=== PATIENT | female | born 1960 | race Caucasian/White ===

== ENCOUNTER → 2016-08-22 | Outpatient (REF) | payer OTHER, MEDICAID ==
[~2016-08-22] MED LIST: ATOR40TA PO; FISH100049 PO; FURO20TA2 PO; MULT1TAB15 PO; NATU400T PO
[2016-08-22 12:50] LABS: BASO % 0.8 % (0.0-1.0); EOS # 0.1 K/mm3 (0.0-0.50); EOS % 1.8 % (0.0-3.0); LARGE UNSTAINED CELL # 0.2 K/mm3 (0.0-0.4); LARGE UNSTAINED CELL % 2.5 % (0.0-4.0); LYMPH # 2.5 K/mm3 (1.5-4.5); MEAN CORPUSCULAR HEMOGLOBIN 30.7 pg (27.0-33.0); MEAN CORPUSCULAR HGB CONC 32.8 g/dl (32.0-36.5); MEAN CORPUSCULAR VOLUME 93.6 fl (80.0-96.0); MONO # 0.3 K/mm3 (0.0-0.8); MONO % 4.9 % (0.0-5.0); NEUTROPHILS # 3.5 K/mm3 (1.8-7.7); PLATELET COUNT, AUTOMATED 232 k/mm3 (150-450); RED CELL DISTRIBUTION WIDTH 12.1 % (11.5-14.5); WHITE BLOOD COUNT 6.7 K/mm3 (4.0-10.0)
[2016-08-22 13:01] LABS: INR 0.91
[2016-08-22 13:09] LABS: ALBUMIN 3.8 GM/DL (3.2-5.2); ALBUMIN/GLOBULIN RATIO 1.09 (1.00-1.93); BILIRUBIN,DIRECT 0.1 MG/DL (0.0-0.2); BILIRUBIN,TOTAL 0.7 MG/DL (0.2-1.0); TOTAL PROTEIN 7.3 GM/DL (6.4-8.2)
== END ==
LOC: M SFHCPLAZ 12:07
PROVIDERS: ATTEND Hospitalist
DX: R74.8 Abnormal levels of other serum enzymes (principal)

== ENCOUNTER → 2016-10-24 | Outpatient (REF) | payer OTHER | LOC: M SFHCPLAZ 14:33 | DX: R00.2 Palpitations (principal); Z53.9 Procedure and treatment not carried out, unspecified reason ==

== ENCOUNTER → 2016-11-12 | Outpatient (CLI) | payer OTHER, MEDICAID ==
[2016-11-12 14:48] LABS: MEAN CORPUSCULAR HEMOGLOBIN 31.9 pg (27.0-33.0); MEAN CORPUSCULAR HGB CONC 33.5 g/dl (32.0-36.5); MEAN CORPUSCULAR VOLUME 95.2 fl (80.0-96.0); RED CELL DISTRIBUTION WIDTH 12.7 % (11.5-14.5)
[2016-11-12 14:58] LABS: ANION GAP 9 MEQ/L (8-16); BLOOD UREA NITROGEN 19 MG/DL (7-18); CALCIUM LEVEL 9.2 MG/DL (8.5-10.1); CARBON DIOXIDE LEVEL 28 MEQ/L (21-32); CHLORIDE LEVEL 105 MEQ/L (98-107); CREATININE FOR GFR 0.95 MG/DL (0.55-1.02); GLOMERULAR FILTRATION RATE > 60.0 (>51); GLUCOSE, FASTING 94 MG/DL (70-105); SODIUM LEVEL 142 MEQ/L (136-145)
== END ==
LOC: M WUC 11:30
PROVIDERS: ATTEND Internal Medicine
DX: R00.2 Palpitations (principal)

== ENCOUNTER → 2016-11-12 | Outpatient (CLI) | payer OTHER, MEDICAID ==
--- NOTE | 2016-11-13 02:24 | REP ---
Clinical: Contusion. Technique: AP, lateral, bilateral oblique and sunrise views of the right knee. Findings: Lateral view demonstrates small to moderate suprapatellar effusion. No acute fracture or dislocation is appreciated. Underlying degenerative changes include increased sclerosis to the tibial plateau with subtle medial joint space narrowing as well as mild patellofemoral joint space narrowing best noted on sunrise view. Impression: Small to moderate suprapatellar effusion. No acute fracture dislocation. Mild age-related degenerative changes. Signed by Dante Song MD 11/13/2016 02:15 A
== END ==
LOC: M WUC 11:25
PROVIDERS: ATTEND Physician Assistant
DX: S80.01XA Contusion of right knee, initial encounter (principal); X58.XXXA Exposure to other specified factors, initial encounter; Y92.9 Unspecified place or not applicable; Y93.9 Activity, unspecified; Y99.9 Unspecified external cause status

== ENCOUNTER → 2017-02-06 | Outpatient (REF) | payer OTHER, MEDICAID ==
[~2017-02-06] MED LIST changes: -ATOR40TA PO; +ATOR40TA75 PO
== END ==
LOC: M LAB REF 10:49
PROVIDERS: ATTEND Physician Assistant
DX: N89.8 Other specified noninflammatory disorders of vagina (principal)

== ENCOUNTER → 2017-04-07 | Outpatient (REF) | payer OTHER ==
[2017-04-07 13:52] LABS: ALBUMIN 4.1 GM/DL (3.2-5.2); ALBUMIN/GLOBULIN RATIO 1.14 (1.00-1.93); BILIRUBIN,DIRECT 0.2 MG/DL (0.0-0.2); BILIRUBIN,TOTAL 0.6 MG/DL (0.2-1.0); MAGNESIUM LEVEL 2.4 MG/DL (1.8-2.4); TOTAL PROTEIN 7.7 GM/DL (6.4-8.2)
[2017-04-09 00:06] LABS: ANTI SCLERODERMA ANTIBODIES <0.2 AI (0.0-0.9)
== END ==
LOC: M SFHCPLAZ 11:23
PROVIDERS: ATTEND Family Medicine
DX: F32.9 Major depressive disorder, single episode, unspecified (principal); L40.9 Psoriasis, unspecified; K76.0 Fatty (change of) liver, not elsewhere classified; Z01.89 Encounter for other specified special examinations; R25.2 Cramp and spasm

== ENCOUNTER → 2017-07-14 | Outpatient (CLI) | payer OTHER ==
[2017-07-14 11:28] LABS: INR 0.92; PARTIAL THROMBOPLASTIN TIME 28.1 SECONDS (26.8-37.9); PROTHROMBIN TIME 12.4 SECONDS (12.4-14.5)
[2017-07-14 11:56] LABS: HEPATITIS B SURFACE ANTIBODY NEGATIVE (POSITIVE)
[2017-07-14 12:06] LABS: ALBUMIN 3.9 GM/DL (3.2-5.2); ALBUMIN/GLOBULIN RATIO 1.11 (1.00-1.93); ALKALINE PHOSPHATASE 63 U/L (45-117); ALT/SGPT 105 U/L (12-78); AST/SGOT 57 U/L (7-37); BILIRUBIN,DIRECT 0.1 MG/DL (0.0-0.2); BILIRUBIN,TOTAL 0.5 MG/DL (0.2-1.0); FERRITIN 383 NG/ML (8-252); IRON (FE) 79 UG/DL (50-170); PERCENT SATURATION 21.8 % (13.2-45.0); TOTAL IRON BINDING CAPACITY 363 UG/DL (250-450); TOTAL PROTEIN 7.4 GM/DL (6.4-8.2)
[2017-07-17 08:07] LABS: ALPHA 2-MACROGLOBULINS,QN 174 mg/dL (110-276); ALT (SGPT) P5P 102 IU/L (0-40); ANTI-MITOCHONDRIAL ANTIBODY 17.8 Units (0.0-20.0); APOLIPOPROTEIN A-1 159 mg/dL (116-209); AST (SGOT) P5P 62 IU/L (0-40); BILIRUBIN, TOTAL 0.2 mg/dL (0.0-1.2); CERULOPLASMIN 28.6 mg/dL (19.0-39.0); CHOLESTEROL TOTAL 190 mg/dL (100-199); GGT 80 IU/L (0-60); GLUCOSE, SERUM 114 mg/dL (65-99); HAPTOGLOBIN 159 mg/dL (34-200); HEIGHT 64 Inches (.); STEATOSIS SCORE 0.81 (0.00-0.30); TRIGLYCERIDES 116 mg/dL (0-149); WEIGHT 180 LBS (.)
[2017-07-17 08:07] LABS: HEPATITIS A IgG TOTAL Negative (Negative)
== END ==
LOC: M RAD 08:55
DX: R13.10 Dysphagia, unspecified (principal); K76.0 Fatty (change of) liver, not elsewhere classified; R16.2 Hepatomegaly with splenomegaly, not elsewhere classified
CPT/HCPCS: 76700

== ENCOUNTER → 2017-07-14 | Outpatient (CLI) | payer OTHER ==
[2017-07-14 11:13] LABS: BASO % 0.5 % (0.0-1.0); EOS # 0.1 10^3/uL (0.0-0.50); EOS % 1.2 % (0.0-3.0); HEMATOCRIT 38.5 % (36.0-47.0); HEMOGLOBIN 12.8 g/dl (12.0-16.0); IMMATURE GRANULOCYTE % 0.3 % (0-0); LYMPH % 30.9 % (24.0-44.0); MEAN CORPUSCULAR HEMOGLOBIN 31.1 pg (27.0-33.0); MEAN CORPUSCULAR HGB CONC 33.2 g/dl (32.0-36.5); MEAN CORPUSCULAR VOLUME 93.7 fl (80.0-96.0); MONO # 0.4 10^3/uL (0.0-0.8); NEUTROPHILS % 61.1 % (36.0-66.0); PLATELET COUNT, AUTOMATED 225 10^3/uL (150-450); RED BLOOD COUNT 4.11 10^6/uL (4.00-5.40); RED CELL DISTRIBUTION WIDTH 12.8 % (11.5-14.5); WHITE BLOOD COUNT 6.5 10^3/uL (4.0-10.0)
[2017-07-14 11:42] LABS: ALBUMIN 3.8 GM/DL (3.2-5.2); ALBUMIN/GLOBULIN RATIO 1.09 (1.00-1.93); ALKALINE PHOSPHATASE 63 U/L (45-117); ALT/SGPT 102 U/L (12-78); ANION GAP 7 MEQ/L (8-16); AST/SGOT 57 U/L (7-37); BILIRUBIN,TOTAL 0.5 MG/DL (0.2-1.0); BLOOD UREA NITROGEN 18 MG/DL (7-18); C REACTIVE PROTEIN QUANTITATIV 0.48 MG/DL (0.00-0.30); CARBON DIOXIDE LEVEL 29 MEQ/L (21-32); CHLORIDE LEVEL 107 MEQ/L (98-107); GLOMERULAR FILTRATION RATE > 60.0 (>51); GLUCOSE, FASTING 112 MG/DL (70-105); POTASSIUM SERUM 4.2 MEQ/L (3.5-5.1); RHEUMATOID FACTOR QUANT < 10.0 IU/ML (0-15.0); SODIUM LEVEL 143 MEQ/L (136-145); TOTAL PROTEIN 7.3 GM/DL (6.4-8.2)
[2017-07-14 11:56] LABS: ERYTHROCYTE SEDIMENTATION RATE 25 mm/hr (0-30); HEPATITIS B SURFACE ANTIGEN NEGATIVE (NEGATIVE)
[2017-07-14 12:24] LABS: HEPATITIS C VIRUS ABY INDEX 0.1 INDEX (<0.8)
[2017-07-16 00:07] LABS: ANA (HEP2) Negative (.); Lyme Disease IgG/IgM Antibodie <0.91 ISR (0.00-0.90); Lyme Disease IgM Ab Quantitati <0.80 index (0.00-0.79); SSA SJOGRENS A <0.2 AI (0.0-0.9); SSB SJOGRENS B <0.2 AI (0.0-0.9)
[2017-07-16 00:07] LABS: CYCLIC CITRULLINATED PEPTIDE 9 units (0-19)
== END ==
LOC: M RAD 09:07
DX: L40.59 Other psoriatic arthropathy (principal); Z79.899 Other long term (current) drug therapy; R53.83 Other fatigue; K76.0 Fatty (change of) liver, not elsewhere classified; M54.5 Low back pain; M25.559 Pain in unspecified hip; M25.569 Pain in unspecified knee; M51.36 Other intervertebral disc degeneration, lumbar region; M51.37 Other intervertebral disc degeneration, lumbosacral region; M25.78 Osteophyte, vertebrae
CPT/HCPCS: 72110

== ENCOUNTER 2017-10-02 08:08 | Day surgery (SDC) | payer OTHER, MEDICAID ==
[2017-10-02] MEDS: NS 1,000 ML IV (08:00)
[~2017-10-02 08:08] MED LIST changes: -ATOR40TA75 PO; -FISH100049 PO; -FURO20TA2 PO; +LIDOCAINE 2% INJ 100 MG/5 ML SDV (FOR ANES.) As Ordered; -MULT1TAB15 PO; -NATU400T PO; +PROPOFOL 200 MG/20 ML VIAL As Ordered
[2017-10-02] MEDS ORDERED: PROPOFOL 200 MG/20 ML VIAL As Ordered ×2 (10:54)
== END 2017-10-02 11:25 | disposition home or self-care (01) ==
LOC: M OPP 08:08
DX: Z12.11 Encounter for screening for malignant neoplasm of colon (principal); D12.3 Benign neoplasm of transverse colon; K62.1 Rectal polyp; K64.8 Other hemorrhoids; K57.30 Diverticulosis of large intestine without perforation or abscess without bleeding; K22.8 Other specified diseases of esophagus; K29.70 Gastritis, unspecified, without bleeding; R13.10 Dysphagia, unspecified; I10 Essential (primary) hypertension; E78.5 Hyperlipidemia, unspecified; K76.0 Fatty (change of) liver, not elsewhere classified; R00.2 Palpitations; F41.9 Anxiety disorder, unspecified; F32.9 Major depressive disorder, single episode, unspecified; L40.50 Arthropathic psoriasis, unspecified; D68.51 Activated protein C resistance; Z79.899 Other long term (current) drug therapy; Z88.8 Allergy status to other drugs, medicaments and biological substances; Z87.891 Personal history of nicotine dependence
CPT/HCPCS: 45385

== ENCOUNTER → 2017-10-03 | Outpatient (CLI) | payer OTHER | LOC: M RAD 11:16 | DX: R10.13 Epigastric pain (principal); R10.30 Lower abdominal pain, unspecified; J98.11 Atelectasis | CPT/HCPCS: 71046 ==

== ENCOUNTER → 2017-11-20 | Outpatient (REF) | payer OTHER ==
[2017-11-20 18:22] LABS: ALBUMIN 3.9 GM/DL (3.2-5.2); ALBUMIN/GLOBULIN RATIO 1.11 (1.00-1.93); ALKALINE PHOSPHATASE 71 U/L (45-117); ALT/SGPT 140 U/L (12-78); AST/SGOT 67 U/L (7-37); BILIRUBIN,DIRECT 0.1 MG/DL (0.0-0.2); BILIRUBIN,TOTAL 0.6 MG/DL (0.2-1.0); TOTAL PROTEIN 7.4 GM/DL (6.4-8.2)
[2017-11-20 18:27] LABS: TOTAL 25(OH) VITAMIN D 29.6 NG/ML (30.0-100.0)
[2017-11-20 18:34] LABS: ESTIMATED AVERAGE GLUCOSE 146 MG/DL (60-110); HEMOGLOBIN A1c 6.7 %
== END ==
LOC: M SFHCPLAZ 15:15
DX: R74.0 Nonspecific elevation of levels of transaminase and lactic acid dehydrogenase [LDH] (principal)

== ENCOUNTER 2017-12-28 11:39 | Emergency (ER) | payer OTHER, MEDICAID ==
[2017-12-28] MEDS: ALBUTEROL SULFATE 2.5 MG/0.5 ML INH NEB SOLN NEB ×2 (12:21→12:29)
== END 2017-12-28 12:59 | disposition home or self-care (01) ==
LOC: M ED 11:39
DX: J20.9 Acute bronchitis, unspecified (principal); J45.909 Unspecified asthma, uncomplicated; Z91.048 Other nonmedicinal substance allergy status; Z98.890 Other specified postprocedural states; Z87.891 Personal history of nicotine dependence; Z88.8 Allergy status to other drugs, medicaments and biological substances; Z88.1 Allergy status to other antibiotic agents; Z88.2 Allergy status to sulfonamides; Z88.5 Allergy status to narcotic agent
CPT/HCPCS: 94640

== ENCOUNTER 2018-03-22 11:47 | Emergency (ER) | payer OTHER, MEDICAID | END 2018-03-22 14:01 | disposition home or self-care (01) | LOC: M ED 11:47 | DX: S06.0X1A Concussion with loss of consciousness of 30 minutes or less, initial encounter (principal); W19.XXXA Unspecified fall, initial encounter; Y92.099 Unspecified place in other non-institutional residence as the place of occurrence of the external cause; Y93.89 Activity, other specified; Y99.9 Unspecified external cause status; I10 Essential (primary) hypertension; Z87.891 Personal history of nicotine dependence; Z79.899 Other long term (current) drug therapy; Z88.5 Allergy status to narcotic agent; Z88.8 Allergy status to other drugs, medicaments and biological substances | CPT/HCPCS: 73080 ==

== ENCOUNTER → 2018-05-15 | Outpatient (REF) | payer OTHER, MEDICAID ==
[2018-05-15 13:32] LABS: ALBUMIN 4.1 GM/DL (3.2-5.2); ALBUMIN/GLOBULIN RATIO 1.32 (1.00-1.93); ALKALINE PHOSPHATASE 69 U/L (45-117); ALT/SGPT 88 U/L (12-78); AST/SGOT 64 U/L (7-37); BILIRUBIN,DIRECT 0.2 MG/DL (0.0-0.2); BILIRUBIN,TOTAL 0.7 MG/DL (0.2-1.0); CHOLESTEROL LEVEL 194 MG/DL (<200); GAMMA GLUTAMYLTRANSPEPTIDASE 121 U/L (5-55); HDL CHOLESTEROL 52 MG/DL (>40); LDL CHOLESTEROL 116 MG/DL (<100); NON-HDL-C 142 MG/DL; TOTAL PROTEIN 7.2 GM/DL (6.4-8.2); TRIGLYCERIDES LEVEL 129 MG/DL (<150)
== END ==
LOC: M LABDRAWP 10:43
DX: R94.5 Abnormal results of liver function studies (principal); K75.81 Nonalcoholic steatohepatitis (NASH)
CPT/HCPCS: 82977

== ENCOUNTER 2018-09-25 11:30 | Outpatient (RCR) | payer OTHER ==
[~2018-09-25 11:30] MED LIST changes: +ALBU83IN INH; +ATOR40TA75 PO; +BREAMIS6 XX; +CENT1CHW5 PO; +FISH100049 PO; +FURO20TA2 PO; -LIDOCAINE 2% INJ 100 MG/5 ML SDV (FOR ANES.) As Ordered; +MUCI600T37 PO; +MULT1TAB15 PO; +NAPR-885 PO; +NATU400T PO; +OTEZ1TAB3 PO; +PANT40TA3 PO; +PRED20TA PO; -PROPOFOL 200 MG/20 ML VIAL As Ordered; +PROZ20CA11 PO; +VITA100066 PO
== END 2018-10-04 ==
LOC: M PT 11:30
PROVIDERS: ATTEND Dermatology
DX: L40.9 Psoriasis, unspecified (principal)

== ENCOUNTER → 2018-12-17 | Outpatient (CLI) | payer OTHER ==
--- NOTE | 2018-12-17 12:43 | REPMRS ---
Patient History The patient states she has not had a clinical breast exam in over a year. Patient is postmenopausal. No known family history of cancer. No Hormone Replacement Therapy Digital Woman Screen Mammo: December 17, 2018 - Exam #: [id number] Bilateral CC and MLO view(s) were taken. Technologist: Mary Jin, Technologist Prior study comparison: January 17, 2015, bilateral digital mammo screening bilat, performed at [facility]. FINDINGS: There are scattered fibroglandular densities. There is a moderate amount of residual fibroglandular tissue which is fairly symmetric. There is no interval development of dominant mass, architectural distortion, or clustered microcalcification typical of malignancy. There has been no change in the appearance of the mammogram from the prior studies. 3-D tomosynthesis shows no additional findings. Assessment: BI-RADS/ACR category 1 mammogram. Negative Mammogram. Recommendation Routine screening mammogram of both breasts in 1 year (for women over age 40). This patient's Lifetime Breast Cancer RIsk is estimated at 5.6 %. This mammogram was interpreted with the aid of an FDA-approved computer-aided dectection system. Electronically Signed By: Wu Garcia MD 12/17/18 [id number]
== END ==
LOC: M WHC 10:29
PROVIDERS: ATTEND Student in an Organized Health Care Education/Training Program
DX: Z12.31 Encounter for screening mammogram for malignant neoplasm of breast (principal)

== ENCOUNTER 2019-02-27 09:08 | Emergency (ER) | payer MEDICAID, OTHER ==
[2019-02-27] MEDS ORDERED: KETOROLAC 60 MG/2 ML VIAL (J1885) IM ONE (09:45)
--- NOTE | 2019-02-27 10:12 | REP ---
Left shoulder three view : There is no fracture or dislocation. Mineralization and joint spaces are normal. There are no calcifications or foreign bodies. Impression: Negative left shoulder . Electronically Signed by Anthony Gimenez MD 02/27/2019 10:04 A
--- NOTE | 2019-02-27 10:18 | REP ---
Maxillofacial CT: Axial images are acquired helical scanning and a reformatted sagittal and coronal projections: There is no nasal bone fracture. There is no orbit fracture. The ocular lenses and globes are unremarkable. There is no zygoma fracture. The paranasal sinuses are unremarkable. The mastoid air cells are unremarkable. There is no maxilla fracture. There is no mandible fracture. Impression: No facial bone fracture is identified. Electronically Signed by Anthony Gimenez MD 02/27/2019 10:09 A
--- NOTE | 2019-02-27 10:19 | REP ---
AP pelvis: There is no pelvic fracture. The right and left hip articulations are unremarkable. The right left sacroiliac articulations are unremarkable. Mineralization is normal. There are two small calcifications inferiorly on the right, nonspecific, ureteral versus phleboliths. Impression: No pelvic fracture. Nonspecific pelvic calcifications. Right hip two views : There is no fracture or dislocation. Mineralization and joint spaces are normal. There are no calcifications or foreign bodies. Impression: Negative right hip Left hip two views : There is no fracture or dislocation. Mineralization and joint spaces are normal. There are no calcifications or foreign bodies. Impression: Negative left hip . Electronically Signed by Anthony Gimenez MD 02/27/2019 10:11 A
[2019-02-27] MEDS ORDERED: KETO10TAB PO (10:48)
[2019-02-27 10:54] VITALS: BP 125/69
== END 2019-02-27 10:55 | disposition home or self-care (01) ==
LOC: M ED 09:08
DX: S00.83XA Contusion of other part of head, initial encounter (principal); S40.012A Contusion of left shoulder, initial encounter; S70.01XA Contusion of right hip, initial encounter; S70.02XA Contusion of left hip, initial encounter; W10.8XXA Fall (on) (from) other stairs and steps, initial encounter; Y92.098 Other place in other non-institutional residence as the place of occurrence of the external cause; I10 Essential (primary) hypertension; E78.00 Pure hypercholesterolemia, unspecified; K21.9 Gastro-esophageal reflux disease without esophagitis; K57.90 Diverticulosis of intestine, part unspecified, without perforation or abscess without bleeding; D68.51 Activated protein C resistance; Z87.828 Personal history of other (healed) physical injury and trauma; Z88.2 Allergy status to sulfonamides; Z88.8 Allergy status to other drugs, medicaments and biological substances; Z88.5 Allergy status to narcotic agent; Z88.1 Allergy status to other antibiotic agents; Z79.1 Long term (current) use of non-steroidal anti-inflammatories (NSAID)
CPT/HCPCS: 70486; 73030; 73521; 96372; 99283; J1885

== ENCOUNTER → 2019-05-17 | Outpatient (CLI) | payer OTHER, MEDICAID ==
[~2019-05-17] MED LIST changes: +KETO10TAB PO
[2019-05-17 17:32] LABS: BILIRUBIN,TOTAL 0.7 MG/DL (0.2-1.0); CALCIUM LEVEL 9.4 MG/DL (8.5-10.1); CHOLESTEROL RISK RATIO 3.473 (<5); CREATININE FOR GFR 1.12 MG/DL (0.55-1.30); POTASSIUM SERUM 3.8 MEQ/L (3.5-5.1); TOTAL PROTEIN 7.8 GM/DL (6.4-8.2)
[2019-05-17 18:00] LABS: HEMOGLOBIN A1c 6.6 %
== END ==
LOC: M WUC 14:02
DX: Z00.00 Encounter for general adult medical examination without abnormal findings (principal); K76.0 Fatty (change of) liver, not elsewhere classified; I10 Essential (primary) hypertension

== ENCOUNTER → 2019-05-19 | Outpatient (REF) | payer OTHER, MEDICAID ==
[2019-05-25 08:26] LABS: DOPAMINE 150 ug/24 hr (0-510); DOPAMINE TOTAL URINE 150 ug/L (Undefined); EPINEPHRINE 1 ug/24 hr (0-20); EPINEPHRINE TOTAL URINE 1 ug/L (Undefined); NOREPINEPHRINE 30 ug/24 hr (0-135); NOREPINEPHRINE TOTAL URINE 30 ug/L (Undefined)
== END ==
LOC: M SFHCPLAZ 16:50
PROVIDERS: ATTEND Family Medicine
DX: R00.2 Palpitations (principal)

== ENCOUNTER → 2019-05-21 | Outpatient (REF) | payer OTHER, MEDICAID ==
[2019-05-26 14:07] LABS: CREATININE,RANDOM URINE 290.8 mg/dL (Not Estab.); URINE METANEPHR/CREAT RATIO 0.3 (0.0-1.0)
== END ==
LOC: M SFHCPLAZ 15:43
PROVIDERS: ATTEND Family Medicine
DX: R00.2 Palpitations (principal)

== ENCOUNTER → 2019-08-20 | Outpatient (CLI) | payer OTHER ==
[~2019-08-20] MED LIST changes: +MUCI600T31 PO; +VENTAER INH
--- NOTE | 2019-08-20 08:24 | REP ---
Clinical: Fatty liver. Technique: Real time motnoya scale ultrasound examination using curved array transducer. Findings: Liver is increased echogenicity without focal hepatic lesion identified. Focal fatty sparing adjacent to the gallbladder fossa noted. The pancreas is incompletely evaluated due to interposed bowel gas but visualized portions appear normal. The gallbladder is normal and without gallstones, wall thickening, or pericholecystic fluid. No biliary ductal dilatation is appreciated and the common bile duct measures 5 mm diameter. The right kidney is normal in reniform shape without hydronephrosis and measures 11.1 x 4.7 x 4.3 cm. No ascites in the visualized right upper quadrant. Impression: Hepatic steatosis. Electronically Signed by Dante Song MD 08/20/2019 08:15 A
== END ==
LOC: M RAD 07:08
DX: K76.0 Fatty (change of) liver, not elsewhere classified (principal)

== ENCOUNTER → 2020-07-11 | Outpatient (CLI) | payer OTHER ==
[~2020-07-11] MED LIST changes: +PANT40TA29 PO; -PANT40TA3 PO
[2020-07-11 18:42] LABS: ALT/SGPT 110 U/L (12-78); BILIRUBIN,TOTAL 0.5 MG/DL (0.2-1.0); BLOOD UREA NITROGEN 13 MG/DL (7-18); CALCIUM LEVEL 9.5 MG/DL (8.8-10.2); CARBON DIOXIDE LEVEL 31 MEQ/L (21-32); CHLORIDE LEVEL 103 MEQ/L (98-107); CREATININE FOR GFR 0.97 MG/DL (0.55-1.30); GLOMERULAR FILTRATION RATE > 60.0 (>45); GLUCOSE, FASTING 217 MG/DL (70-100); POTASSIUM SERUM 3.8 MEQ/L (3.5-5.1); SODIUM LEVEL 138 MEQ/L (136-145); TOTAL PROTEIN 7.6 GM/DL (6.4-8.2)
[2020-07-11 18:50] LABS: VITAMIN B12 LEVEL 1019 PG/ML (247-911)
[2020-07-11 21:33] LABS: HEMOGLOBIN A1c 7.9 %
[2020-07-14 20:07] LABS: AFP TUMOR TOTAL 2.9 ng/mL (0.0-8.0)
== END ==
LOC: M WUC 15:28
PROVIDERS: ATTEND Internal Medicine
DX: R19.7 Diarrhea, unspecified (principal); K76.0 Fatty (change of) liver, not elsewhere classified; R73.03 Prediabetes

== ENCOUNTER → 2020-08-31 | Outpatient (REF) | payer OTHER ==
[2020-08-31 15:12] LABS: ALBUMIN 4.2 GM/DL (3.2-5.2); ALT/SGPT 43 U/L (12-78); BILIRUBIN,TOTAL 0.5 MG/DL (0.2-1.0); BLOOD UREA NITROGEN 17 MG/DL (7-18); C REACTIVE PROTEIN QUANTITATIV 0.36 MG/DL (0.00-0.30); CALCIUM LEVEL 9.3 MG/DL (8.8-10.2); CARBON DIOXIDE LEVEL 30 MEQ/L (21-32); CHLORIDE LEVEL 107 MEQ/L (98-107); CK-MB VALUE MASS < 1.0 NG/ML (<3.6); CPK CREATINE PHOSPHOKINASE 129 U/L (26-192); FREE T4 0.73 NG/DL (0.76-1.46); GLOMERULAR FILTRATION RATE > 60.0 (>45); GLUCOSE, FASTING 134 MG/DL (70-100); MB/CK RELATIVE INDEX 0.78 (< OR =4); POTASSIUM SERUM 3.9 MEQ/L (3.5-5.1); SODIUM LEVEL 142 MEQ/L (136-145); THYROID STIMULATING HORMONE 0.563 uIU/ML (0.358-3.740); TOTAL PROTEIN 7.2 GM/DL (6.4-8.2); TROPONIN I < 0.02 NG/ML (< 0.10)
== END ==
LOC: M SFHCPLAZ 12:57
PROVIDERS: ATTEND Physician Assistant
DX: R53.83 Other fatigue (principal); H93.8X3 Other specified disorders of ear, bilateral; R42 Dizziness and giddiness; M79.602 Pain in left arm

== ENCOUNTER → 2020-09-18 | Outpatient (CLI) | payer OTHER ==
--- NOTE | 2020-09-18 14:40 | REPMRS ---
Patient History The patient states she had a clinical breast exam in September 2020. No known family history of cancer. No Hormone Replacement Therapy Digital Woman Screen Mammo: September 18, 2020 - Exam #: [id number] Bilateral CC and MLO view(s) were taken. Technologist: RT Elvis Prior study comparison: December 17, 2018, bilateral digital woman screen mammo performed at [facility]. January 17, 2015, bilateral digital mammo screening bilat, performed at [facility]. FINDINGS: There are scattered fibroglandular densities. The Volpara volumetric breast density category is:B. There has been no change in the appearance of the mammogram from the prior studies. There is a mild amount of scattered fibroglandular density which is fairly symmetric. There is no interval development of dominant mass, architectural distortion, or grouped microcalcification suggestive of malignancy. 3-D tomosynthesis shows no additional findings. Assessment: BI-RADS/ACR category 1 mammogram. Negative Mammogram. Recommendation Routine screening mammogram of both breasts in 1 year (for women over age 40). This patient's [facility] Lifetime Breast Cancer Risk is estimated at 5.3 %. This mammogram was interpreted with the aid of an FDA-approved computer-aided dectection system. Electronically Signed By: Wu Garcia MD 09/18/20 [id number]
== END ==
LOC: M WHC 13:28
PROVIDERS: ATTEND Nurse Practitioner Women's Health
DX: Z12.31 Encounter for screening mammogram for malignant neoplasm of breast (principal)

== ENCOUNTER → 2020-09-18 | Outpatient (REF) | payer OTHER | LOC: M SFHCWAGY 17:59 | PROVIDERS: ATTEND Nurse Practitioner Women's Health | DX: Z12.4 Encounter for screening for malignant neoplasm of cervix (principal) ==

== ENCOUNTER → 2020-10-31 | Outpatient (REF) | payer OTHER ==
[2020-10-31 15:52] LABS: ALBUMIN 3.8 GM/DL (3.2-5.2); ALT/SGPT 33 U/L (12-78); BILIRUBIN,TOTAL 0.7 MG/DL (0.2-1.0); BLOOD UREA NITROGEN 13 MG/DL (7-18); CALCIUM LEVEL 9.8 MG/DL (8.8-10.2); CARBON DIOXIDE LEVEL 30 MEQ/L (21-32); CHLORIDE LEVEL 110 MEQ/L (98-107); CREATININE FOR GFR 0.74 MG/DL (0.55-1.30); GLOMERULAR FILTRATION RATE > 60.0 (>45); GLUCOSE, FASTING 93 MG/DL (70-100); POTASSIUM SERUM 4.5 MEQ/L (3.5-5.1); SODIUM LEVEL 144 MEQ/L (136-145); TOTAL PROTEIN 7.1 GM/DL (6.4-8.2)
[2020-10-31 16:55] LABS: HEMOGLOBIN A1c 6.3 %
== END ==
LOC: M SFHCPLAZ 13:34
PROVIDERS: ATTEND Family Medicine
DX: E11.9 Type 2 diabetes mellitus without complications (principal)

== ENCOUNTER → 2021-01-19 | Outpatient (REF) | payer OTHER | LOC: M SFHCPLAZ 15:22 | DX: E11.9 Type 2 diabetes mellitus without complications (principal); I10 Essential (primary) hypertension ==

== ENCOUNTER → 2021-01-19 | Outpatient (CLI) | payer OTHER ==
[2021-01-19 18:01] LABS: BLOOD UREA NITROGEN 17 MG/DL (7-18); CALCIUM LEVEL 9.2 MG/DL (8.8-10.2); CARBON DIOXIDE LEVEL 28 MEQ/L (21-32); CHLORIDE LEVEL 110 MEQ/L (98-107); CREATININE FOR GFR 0.99 MG/DL (0.55-1.30); GLOMERULAR FILTRATION RATE > 60.0 (>45); GLUCOSE, FASTING 82 MG/DL (70-100); POTASSIUM SERUM 3.8 MEQ/L (3.5-5.1); SODIUM LEVEL 142 MEQ/L (136-145)
== END ==
LOC: M PLALAB 15:48
PROVIDERS: ATTEND Student in an Organized Health Care Education/Training Program
DX: E11.9 Type 2 diabetes mellitus without complications (principal); I10 Essential (primary) hypertension

== ENCOUNTER → 2021-04-18 | Outpatient (CLI) | payer OTHER ==
[2021-04-18 06:54] LABS: BASO % 0.4 % (0.0-1.0); EOS # 0.1 10^3/uL (0.0-0.5); EOS % 1.3 % (0.0-3.0); HEMATOCRIT 38.7 % (36.0-47.0); HEMOGLOBIN 12.2 g/dl (12.0-15.5); LYMPH # 0.9 10^3/uL (1.5-5.0); LYMPH % 12.6 % (24.0-44.0); MEAN CORPUSCULAR HEMOGLOBIN 28.9 pg (27.0-33.0); MEAN CORPUSCULAR HGB CONC 31.5 g/dl (32.0-36.5); MEAN CORPUSCULAR VOLUME 91.7 fl (80.0-96.0); MONO # 0.4 10^3/uL (0.0-0.8); MONO % 5.5 % (2.0-8.0); NEUTROPHILS # 5.6 10^3/uL (1.5-8.5); NEUTROPHILS % 80.1 % (36.0-66.0); PLATELET COUNT, AUTOMATED 209 10^3/uL (150-450); RED BLOOD COUNT 4.22 10^6/uL (4.00-5.40)
[2021-04-18 07:17] LABS: ALBUMIN 3.5 GM/DL (3.2-5.2); ALT/SGPT 23 U/L (12-78); BILIRUBIN,TOTAL 0.9 MG/DL (0.2-1.0); BLOOD UREA NITROGEN 15 MG/DL (7-18); CALCIUM LEVEL 9.2 MG/DL (8.8-10.2); CARBON DIOXIDE LEVEL 30 MEQ/L (21-32); CHLORIDE LEVEL 108 MEQ/L (98-107); CREATININE FOR GFR 0.87 MG/DL (0.55-1.30); GLOMERULAR FILTRATION RATE > 60.0 (>45); GLUCOSE, FASTING 119 MG/DL (70-100); POTASSIUM SERUM 3.7 MEQ/L (3.5-5.1); SODIUM LEVEL 144 MEQ/L (136-145); TOTAL PROTEIN 6.9 GM/DL (6.4-8.2)
--- NOTE | 2021-04-18 15:03 | ECGEPIP ---
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
== END ==
LOC: M LAB 06:21
PROVIDERS: ATTEND Podiatrist
DX: M20.11 Hallux valgus (acquired), right foot (principal); M79.671 Pain in right foot

== ENCOUNTER → 2021-04-20 | Outpatient (REF) | payer OTHER | LOC: M SFHCPLAZ 18:04 | PROVIDERS: ATTEND Student in an Organized Health Care Education/Training Program | DX: J06.9 Acute upper respiratory infection, unspecified (principal) ==

== ENCOUNTER 2021-04-30 18:17 | Emergency (ER) | payer OTHER ==
[~2021-04-30] VITALS: Ht 162.6 cm; Wt 66.8 kg
[~2021-04-30 18:17] MED LIST changes: -AZIT-12 PO; -FLON1SPR NARES; -PROAAER10 INH; -TESS100C PO
--- OUTSIDE RECORDS SUMMARY | 2021-04-30 18:25 | CCD | Continuity of Care Document ---
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 Name Role Phone Bette Belcher MD Unavailable Unavailable Allergies, Adverse Reactions, Alerts Substance Reaction Status Criticality QUETIAPINE FUMARATE (moderate) Active No Informati on sucralfate (mild) Active No Information amlodipine (unknown) Active No Information PSEUDOEPHEDRINE HCL (mild) Active No Informati on DEXTROMETHORPHAN HBR (mild) Active No Informat ion chlorpheniramine (mild) Active No Information Sulfa (Sulfonamide Antibiotics) Active No Information levofloxacin Active No Information Medications Medication Instructions Dosage Effective Dates (start - stop) Sta tus Comments atorvastatin 40 mg tablet - Active pantoprazole 40 mg tablet,delayed release take 1 table t by oral route every day 40 MG - Active Otezla 30 mg tablet take 1 tablet by oral route 2 times every day approximately 12 hours apart 30 MG - Active MULTIVITAMIN (unknown strength) Not Available - A ctive D3 + K2 DOTS 1000 unit-90 mcg disintegrating tablet - Active betamethasone dipropionate 0.05 % topical cream apply by topical route every day a thin layer to the affected area(s) 0.00 - Active FLUOCINOLONE ACETONIDE OIL (unknown strength) instill 5 drop by otic route 2 times every day into affected ear(s) Not Available - Active Systane Ultra 0.4 %-0.3 % eye drops - Active furosemide 20 mg tablet - Active COROMEGA (unknown strength) Not Available - Activ e clindamycin HCl 300 mg capsule 1 tab po bid x 7 days (#14) - No Longer Active Problems Condition Effective Dates (start - stop) Clinical Status C omments Body mass index (BMI) 28.0-28.9, adult - Body mass index (BMI) 28.0-28.9, adult - Gonococcal infection, unspecified Encntr screen for infections w sexl mode of transmiss Contact w and exposure to infect w a sexl mode of transmiss Human immunodeficiency virus [HIV] counseling Other sex counseling - Other sex counseling Encntr screen for infections w sexl mode of transmiss Encounter for oth general cnsl and advice on contraception Acute vaginitis Other sex counseling Encounter for oth general cnsl and advice on contraception Encntr screen for infections w sexl mode of transmiss High risk heterosexual behavior Herpesviral vulvovaginitis Gonococcal cervicitis, unspecified Other sex counseling Herpesviral vulvovaginitis Frequency of micturition Encntr screen for infections w sexl mode of transmiss Encounter for screening for human immunodeficiency virus Human immunodeficiency virus [HIV] counseling Other sex counseling Acute vaginitis Candidiasis of vulva and vagina Other specified noninflammatory disorders of vagina Ulceration of vulva Human immunodeficiency virus [HIV] counseling Encntr screen for infections w sexl mode of transmiss High risk heterosexual behavior Encounter for oth screening for malignant neoplasm of breast 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) w/o abn findings Encntr screen for infections w sexl mode of transmiss High risk heterosexual behavior Encounter for oth screening for malignant neoplasm of breast Dysuria Yeast-vulvovaginal Genital Itching HIV Counseling STI Screening Vaginal Discharge BV Menopause SX Dysuria Nipple Discharge PT, Negative Gonorrhea - Active Gonorrhea - Active Herpes simplex - Active Type 2 Hypertensive disorder Active Impaired glucose tolerance Active Menopause present Active no menses 6-7 yrs Factor V Leiden mutation Active Procedures Procedure Date No Information Results Test Name Date and Time Measure Units Reference Range Abnormal Flag St atus Comments No Information Advance Directives Directive Yes / No Effective Date File Name No Information Encounters Encounter Description Practice Location Reason(s) For Visit Diagnose s Date Provider Providers Copied on Encounter [facility], [address] , [place], [place], [id number], tel:[phone] [facility] W josh Amos. [address] [place] [address], [id number], [place]. tel:[phone] [facility], [address] [place] [address], [id number], [place] tel:[phone] [facility] [place] Gonococcal infectio n, unspecifiedEncntr screen for infections w sexl mode of transmissContact w and exposure to infect w a sexl mode of transmissHuman immunodeficiency virus [HIV] counselingOther sex counseling Ankush Dash. [address] [place] [address], [id number], [place]. tel:[phone] Referring Provider: Mary Jane Lechuga, [address] [place] [address], [id number]. tel:[phone] [facility], [address] [place] [address], [id number], [place] tel:[phone] [facility] [place] Other sex counselin gEncntr screen for infections w sexl mode of transmissEncounter for oth general cnsl and advice on contraceptionAcute vaginitis Lora Tabor. [address] [place] [address], [id number], [place]. tel:[phone] Referring Provider: Sharona Paulino, [address] [place] [address], [id number]. tel:[phone] [facility], [address] [place] [address], [id number], [place] tel:[phone] [facility] [place] Other sex counselin gEncounter for oth general cnsl and advice on contraceptionEncntr screen for infections w sexl mode of transmissHigh risk heterosexual behavior De Alfaro. [address] [place] [address], [id number], [place]. tel:[phone] Referring Provider: Airam Kc, [address] [place] [address] [place], [id number]. tel:[phone] [facility], [address] [place], [place], [id number], [place] tel:[phone] [facility] [place] Herpesviral vulvovaginitis Ju l- Ye Amos. [address] [place] [address], [id number], [place]. tel:[phone] [facility], [address], [place], [id number], [place] tel:[phone] [facility] [place] Gonococcal cervicit is, unspecifiedOther sex counseling De Alfaro. [address] [place], [place], [id number], [place]. tel:[phone] Referring Provider: Airam Kc, [address] [place] [address], [id number]. tel:[phone] [facility], [address] [place] [address], [id number], [place] tel:[phone] [facility] [place] Herpesviral vulvovaginitis Ju n- Ankush Dash. [address] [place] [address], [id number], [place]. tel:[phone] [facility], [address] [place] [address], [id number], [place] tel:[phone] [facility] [place] Frequency of mictur itionEncntr screen for infections w sexl mode of transmissEncounter for screening for human immunodeficiency virusHuman immunodeficiency virus [HIV] counselingOther sex counselingAcute vaginitisCandidiasis of vulva and vaginaOther specified noninflammatory disorders of vaginaUlceration of vulva Ankush Dash. [address] [place] [address], [id number], [place]. tel:[phone] Referring Provider: Mary Jane Lechuga, [address], [place], [id number]. tel:[phone] [facility], [address], [place], [id number], [place] tel:[phone] [facility] [place] Body mass index (BM I) 28.0-28.9, adultHuman immunodeficiency virus [HIV] counselingEncntr screen for infections w sexl mode of transmissHigh risk heterosexual behaviorEncounter for oth screening for malignant neoplasm of breastEncntr for soaking pit operator exam (general) (routine) w/o abn findings King Cheryl. [address] [place], [place], [id number]. tel:[phone] Referring Provider: Cheryl Lane, [address] [place], [place], [id number]. tel:[phone] [facility], [address] [place] [address], [id number], [place] tel:[phone] [facility] [place] Body mass index (BM I) 28.0-28.9, adultEncntr for soaking pit operator exam (general) (routine) w/o abn findingsEncntr screen for infections w sexl mode of transmissHigh risk heterosexual behaviorEncounter for oth screening for malignant neoplasm of breast Lilly Gutierrez. [address] [place] [address], [id number], [place]. tel:[phone] Referring Provider: Brenda Carr, [address] [place] [address], [id number]. tel:[phone] [facility], [address], [place], [id number], [place] tel:[phone] [facility] [place] DysuriaYeast-vulvov aginalGenital Itching Lilly Gutierrez. [address] [place], [place], [id number], [place]. tel:[phone] [facility], [address] [place] [address], [id number], tel:[phone] [facility] HIV CounselingSTI S creeningVaginal DischargeBVMenopause SXDysuria Gordon Briggs. [address] [place] [address], [address] [place] [address], . tel:[phone] [facility], [address] [place] [address], [address] [place] [address], tel:[phone] [facility] No Information P griffin Brenda. [address] [place] [address], [id number], . tel:[phone] [facility], [address] [place] [address], [address] [place] [address], tel:[phone] [facility] Nipple DischargePT, Negati ve Polshamar Gutierrez. [address] [place] [address], [id number], . tel:[phone] Family History Family Member Diagnosis Age At Onset No Information Immunizations Vaccine Date Status Comments tetanus toxoid, adsorbed administered Note: d ates unknown ; Source: Source Unspecified Payers Payer name Insurance type Covered libertarian ID Authorization(s ) [facility] CI [id number] Social History Type Description Quantity Date Captured Comments Alcohol Use Details Unknown Caffeine Use Details Unknown Tobacco Use Status No Information Smoking Status Never smoker Sex Female Vital Signs Date / Time: Height Weight BMI Pulse Rate Blood Pressure Temperatu re Respiratory Rate Body Surface Area Head Circumference BMI percentile Pulse Ox In haled Ox No Information Chief Complaint And Reason For Visit No Information Reason For Referral Reason For Referral No Information Plan Of Treatment Date Type Action Status Goal Lifestyle education regarding di et completed Goal Tobacco cessation counseling com pleted Goal Dietary management education, gu idance, and counseling completed Appointment Jaz Gunn BOOKED History Of Present Illness Encounter Date Complaint History Of Present I llness No Information Functional Status Date Functional Assessment No Information Medications Administered Medication Instructions Dosage Effective Dates (start - stop) Sta tus Comments No Information Instructions Date Instruction Additional Informati on Giving encouragement to exercise Related to Body mass index (BMI) 28.0-28.9, adult Lifestyle education regarding diet Relat ed to Body mass index (BMI) 28.0-28.9, adult Dietary management education, guidance, and counseling Related to Body mass index (BMI) 28.0-28.9, adult Assessments Type Assessment Date No Information Goals Health Concern Goal Type Priority Status Date No Information Medical Equipment Description Device [place] Device Identifier Effective Christopher es (start - stop) Status No Information Mental Status Date Cognitive Assessment No Information Health Concerns Observation Date No Information Concern Status Date No Information Physical Examination Exam Findings Details No Information
--- OUTSIDE RECORDS SUMMARY | 2021-04-30 18:25 | CCD ---
Author Author [facility] Organization [facility] Address Unknown Phone Unavailable Care Team Providers Care Auto Inspection Specialist Name Role Phone Radha Gerber Unavailable PROBLEMS Type Condition ICD9-CM Code [id number] Code Onset Dates Condition S tatus W/U Status Risk SNOMED Code Notes Problem Dyslipidemia E78.5 Active confirmed 5678711 07 Problem Psoriasis L40.9 Active confirmed 2611284 Problem Obesity, unspecified E66.9 Active confirmed 537587557 Problem Difficulty swallowing solids R13.10 Active confirme d 720087719 Problem Psoriatic arthritis L40.50 Active confirmed 268076913 Problem Dysphagia, unspecified type R13.10 Active confirmed 96919775 Problem Dry eyes H04.123 Active confirmed 017478981 Problem Hypertension I10 Active confirmed 7239311 3 Problem Bilateral carpal tunnel syndrome G56.03 Active conf irmed 78637627 Problem Osteoarthritis of multiple joints, unspecified o steoarthritis type M15.9 Active confirmed 536997197 Problem High risk medication use Z79.899 Active confirmed 105440754981998 Problem Major depressive disorder in full remission, unspecified whether recurrent F32.5 Active confirmed 64007717 Problem Gastroesophageal reflux disease without esophagitis K21.9 Active confirmed 992228735 Problem Vitamin D deficiency E55.9 Active confirmed 40731722 Problem Alcohol abuse F10.10 Active confirmed 905343 05 Problem Carpal tunnel syndrome of right wrist G56.01 Ac tive confirmed 968118973480446 Problem Gastroesophageal reflux disease, esophagitis pre sence not specified K21.9 Active confirmed 008603829 Problem Other chronic pain G89.29 Active confirmed 8 6486759 Problem Fatty liver K76.0 Active confirmed 64258896 7 Problem Type 2 diabetes mellitus wit hout complication, without long-term current use of insulin E11.9 Active confirmed 912788407 Problem Liver disease K76.9 Active confirmed 201146 003 Problem Essential hypertension I10 Active confirmed 47262285 Problem Other obesity due to excess calories E66.09 Act emma confirmed 956157174 ALLERGIES Allergen (clinical drug ingredient) Drug/Non Drug Allergy do cumented on EMR Reaction Allergy Type Onset Date Status Triaminic Cold/Cough Hives Drug Allergy Ac tive quetiapine Seroquel no control over small motor movements Drug Fernando rgy Active Metformin metformin Nausea/Vomiting Non Drug Allergy Act emma tramadol Ultram([facility] Code:[address]-72) Hives Drug Allergy Active amlodipine Amlodipine([facility] Code:[address]-98) joint pain an d swelling Drug Allergy Active sucralfate Carafate([facility] Code:[address]-80) Hives Drug Allergy Active Sulfa (for allergy use only) Rash Drug Allergy Active Levaquin not sure Drug Allergy Active ENCOUNTERS from 1960 to 2021-04-19 Encounter Location Date Provider Diagnosis [facility] [address] [facility] [phone] [place] [address] 04 Apr, 2021 Radha Gerber IMMUNIZATIONS Vaccine Route Administration Date Status Influenza 18 yrs & older Flublok IM Intramuscular Jul 14, 2020 Administered Influenza 18 yrs & older Flublok IM Intramuscular Apr 23, 2019 Administered Hepatitis A & B 1mL Twinrix IM Intramuscular Apr 23, 2019 Adm inistered Hepatitis A & B 1mL Twinrix IM Intramuscular September 25, 2017 Adm inistered Hepatitis A & B 1mL Twinrix IM Intramuscular Aug 14, 2017 Adm inistered Pneumococcal Adult 0.5mL Pneumovax 23 IM Intramuscular Apr 23 019 Administered Influenza 6mo & up Fluzone Unknown Apr 24, 2017 Refus ed Influenza 6mo & up Fluzone IM Intramuscular May 03, 2016 Admi nistered SOCIAL HISTORY Tobacco Use: Social History Observation Description Date Details (start date - stop date) Former Smoker Sex Assigned At : Social History Observation Description Sex Assigned At Unknown Education: Question Answer Notes Level of Education: High School Audit Question Answer Notes Total Score: 3 Interpretation: Alcohol Education Sexual Hx: Question Answer Notes Had sex in the last 12 months (vaginal, oral, or anal)? Yes Drug and Alcohol Question Answer Notes Total Score: 0 Interpretation: No problems reported Alcohol Screening: Question Answer Notes Did you have a drink containing alcohol in the past year? Ye s Points 6 Interpretation Positive How often did you have six or more drinks on one occas ion in the past year? Weekly (3 points) How many drinks did you have on a typica l day when you were drinking in the past year? 5 or 6 (2 points) How often did you have a drink containing alcohol in t he past year? Monthly or less (1 point) BMI Care Goal Follow-Up Question Answer Notes Above Normal BMI Follow-Up Lifestyle education regarding t Tobacco Use: Question Answer Notes Are you a: former smoker 15-20 pack year, ghada t 2013 How long has it been since you last smoked? 1-5 years REASON FOR REFERRAL No Information VITAL SIGNS No information MEDICATIONS Medication SIG (Take, Route, Frequency, Duration) Notes Start Da te End Date Status Ventolin HFA 108 (90 Base) MCG/ACT 2 puffs as needed Inhalation every 6 hrs prn Active Otezla 30 MG 1 tablet Orally Twice a day for 30 days Active Vitamin D3 25 MCG (1000 UT) TAKE ONE TABLET BY MOUTH EVERY DAY for 30 Not-Taking Alcohol Prep 70 % as directed as needed for 30 days Jul Active JdguanjiaToJdguanjia Ultra II Test Strips as directed as needed for 30 days Jul, Active JdguanjiaToJdguanjia Ultra 2 w/Device as directed as needed for symptoms for 30 days Jul, Active Vitamin D 1000 UNIT 1 tablet Orally Once a day for 30 Active Furosemide 20 MG TAKE ONE TABLET BY MOUTH EVERY DAY for 30 Active Fluocinolone Acetonide Scalp 0.01 % 1 application to a ffected area Externally Twice a day to scalp areas with rash Active Systane 0.4-0.3 % 1 drop into affected eye as needed Ophthalmic four times daily for 30 days Aug, Active Plantar Fasciitis Support - as directed in shoes daily for 30 da ys Jul, Active Apple Cider Vinegar 500 MG as directed Orally Not-Taking Trulicity 0.75 MG/0.5ML as directed Subcutaneous once per week f or 30 days Sep, Not-Taking Vitamin C 500 MG as directed Orally Active OneTouch FinePoint Lancets - as directed as needed for 30 days Jul, Active Atorvastatin Calcium 40 MG TAKE ONE TABLET BY MOUTH EVERY DAY for 30 Active Pantoprazole Sodium 40 MG TAKE ONE TABLET BY MOUTH EVERY DAY for 30 Active Naproxen 500 MG 1 tablet with food or milk a s needed for pain Orally every 12 hrs for 30 Days prn Jun, Active Betamethasone Dipropionate Aug 0.05 % 1 application to affected skin Externally BID to areas on body with psoriasis prn Active Claritin 10 MG 1 tablet Orally Once a day for 30 day(s) Aug, Not-Taking [place] 3 1000 MG 1 capsule Orally Once a day for 30 day(s) Active PROCEDURES No Information RESULTS No Results REASON FOR VISIT [facility] MEDICAL (GENERAL) HISTORY Type Description Date Medical History Factor V Leiden Medical History fatty liver (mild, diffuse) -- [place] 01/2015 ; [place] 03/2014 Medical History diverticulosis, hx of diverticulitus Medical History anxiety Medical History hx of self harm (ED on 09/14, 10/18) Medical History seen multiple times in the ED with alcoh ol intoxication Medical History hereditary hemochromatosis carrier (C282 Y) Medical History 10 year ASCVD risk 3.8% (09/2015) Medical History Left ovarian hematoma 1997 Medical History Hypertension Medical History Edema Medical History Rosacea Medical History DM2 ac1 7.9 Medical History PSA Medical History Plaque Psoriasis Surgical History tonsillectomy 1995 Surgical History oophorectomy L 1997 Surgical History R-carpal tunnel release 09/20/20 Hospitalization History blood clot on vessel on R ovary 2000 Goals Section No Information Health Concerns No Information MEDICAL EQUIPMENT No Information MENTAL STATUS No Information FUNCTIONAL STATUS No Information ASSESSMENTS No Information PLAN OF TREATMENT Next Appt Details Provider Name:Maggy Anaya, 2020-07 0-15 03:00:00 PM, [address] [facility] [address] , [place], [address], Provider Name:Radha Gerber, 04:30:00 PM, [address] [facility] , [place], [address], Insurance Providers Payer Name Payer Address Payer Phone Insured Name Patient Relati onship to Insured Coverage Start Date Coverage End Date [facility] [address] [facility] [phone] CAROLA DRAKE self
--- OUTSIDE RECORDS SUMMARY | 2021-04-30 18:25 | CCD ---
Author Author [facility] Organization [facility] Address Unknown Phone Unavailable Care Team Providers Care Certified Pesticide Applicator Name Role Phone Maggy Anaya Unavailable PROBLEMS Type Condition ICD9-CM Code ZEM93-RT Code Onset Dates Condition S tatus W/U Status Risk SNOMED Code Notes Problem Fatty liver K76.0 Active confirmed 56278037 7 Problem Alcohol abuse F10.10 Active confirmed 059810 05 Problem Dyslipidemia E78.5 Active confirmed 5924119 07 Problem Psoriasis L40.9 Active confirmed 0397015 Problem Dry eyes H04.123 Active confirmed 624075404 Problem Gastroesophageal reflux disease, esophagitis pre sence not specified K21.9 Active confirmed 428783386 Problem Vitamin D deficiency E55.9 Active confirmed 74018356 Problem Essential hypertension I10 Active confirmed 37666153 Problem Bilateral carpal tunnel syndrome G56.03 Active conf irmed 30303602 Problem Carpal tunnel syndrome of right wrist G56.01 Ac tive confirmed 829870791615442 Problem Psoriatic arthritis L40.50 Active confirmed 696525002 Problem Osteoarthritis of multiple joints, unspecified o steoarthritis type M15.9 Active confirmed 842064937 Problem High risk medication use Z79.899 Active confirmed 399752789426860 Problem Major depressive disorder in full remission, unspecified whether recurrent F32.5 Active confirmed 11439878 Problem Liver disease K76.9 Active confirmed 100262 003 ALLERGIES Allergen (clinical drug ingredient) Drug/Non Drug Allergy do cumented on EMR Reaction Allergy Type Onset Date Status sucralfate Carafate([facility] Code:[address]-51) Hives Drug Allergy Active Triaminic Cold/Cough Hives Drug Allergy Ac tive quetiapine Seroquel no control over small motor movements Drug Fernando rgy Active tramadol Ultram([facility] Code:[address]-21) Hives Drug Allergy Active amlodipine Amlodipine([facility] Code:[address]-74) joint pain an d swelling Drug Allergy Active metformin Metformin Nausea/Vomiting Drug Allergy Active Sulfasalazine Sulfa Antibiotics Rash Drug Allergy Ac tive Levaquin not sure Drug Allergy Active ENCOUNTERS from 1960 to 2021-04-26 Encounter Location Date Provider Diagnosis [facility] [phone] [place] [address] Apr, Maggy Movsesian IMMUNIZATIONS Vaccine Route Administration Date Status Influenza [...] Notes Start Da te End Date Status [place] 3 1000 MG 1 capsule Orally Once a day for 30 day(s) Active Vitamin D 1000 UNIT 1 tablet Orally Once a day for 30 Active Furosemide 20 MG TAKE ONE TABLET BY MOUTH EVERY DAY for 30 Active Ventolin HFA 108 (90 Base) MCG/ACT 2 puffs as needed I nhalation every 4 hrs for 30 days prn Active Plantar Fasciitis Support - as directed in shoes daily for 30 da ys Jul, Active Otezla 30 MG 1 tablet Orally Twice a day for 30 days Active Pantoprazole Sodium 40 MG TAKE ONE TABLET BY MOUTH EVERY DAY for 30 Active Systane 0.4-0.3 % 1 drop into affected eye as needed Ophthalmic four times daily for 30 days Aug, Active Fluocinolone Acetonide Scalp 0.01 % 1 application to a ffected area Externally Twice a day to scalp areas with rash for 14 days Active Atorvastatin Calcium 40 MG TAKE ONE TABLET BY MOUTH EVERY DAY for 30 Active Naproxen 500 MG 1 tablet with food or milk a s needed for pain Orally every 12 hrs for 30 Days prn Jun, Active Vitamin C 500 MG as directed Orally Active Betamethasone Dipropionate Aug 0.05 % 1 application to affected skin Externally BID to areas on body with psoriasis prn Active guaiFENesin ER 1200 MG 1 tablet as needed Orally every 12 hrs fo r 30 days Apr, Active PROCEDURES No Information RESULTS No Results REASON FOR VISIT antibody infusions MEDICAL (GENERAL) HISTORY Type Description Date Medical [...] History Edema Medical History Rosacea Medical History Plaque Psoriasis Surgical History tonsillectomy 1995 Surgical History oophorectomy L 1997 Surgical History R-carpal tunnel release 09/20/20 Hospitalization History blood clot on vessel on R ovary 2001 Goals Section No Information Health Concerns No Information MEDICAL EQUIPMENT No Information MENTAL STATUS No Information FUNCTIONAL STATUS No Information ASSESSMENTS No Information PLAN OF TREATMENT Medication Medication Name Sig Start Date Stop Date Fluocinolone Acetonide Scalp 0.01 % 1 application to a ffected area Externally Twice a day to scalp areas with rash for 14 days Ventolin HFA 108 (90 Base) MCG/ACT 2 puffs as needed I nhalation every 4 hrs for 30 days guaiFENesin ER 1200 MG 1 tablet as needed Orally every 12 hr s for 30 days Apr, Insurance Providers Payer Name Payer Address Payer Phone Insured Name Patient Relati onship to Insured Coverage Start Date Coverage End Date [facility] [address] [facility] [phone] CAROLA DRAKE self
--- OUTSIDE RECORDS SUMMARY | 2021-04-30 18:25 | CCD | Continuity of Care Document ---
Author Author [facility] Organization [facility] Address Unknown Phone Unavailable Care Team Providers Care Top And Seat Cover Fitter Name Role Phone Sharona Bryant Unavailable Unavailable Allergies, Adverse Reactions, Alerts Substance [...] (unknown strength) Not Available - Activ e ceftriaxone 500 mg solution for injection Inject 500 m g total once with 1ml of 1% lidocaine administer to pt in clinic - No Longer Active clindamycin HCl 300 mg capsule 1 tab [...] for malignant neoplasm of breast Encntr for hvac service manager exam (general) (routine) w/o abn findings Encntr for hvac service manager exam (general) (routine) w/o abn findings Encntr [...] Provider Providers Copied on Encounter [facility] [place], [address], [place], [id number], [place] tel:[phone] [facility] [place] No Information Karen Tabor. [address], [place], [id number], [place]. tel:[phone] [facility] [place], [address], [place], [id number], [place] tel:[phone] [facility] [place] Gonococcal infectio n, unspecifiedEncntr screen for infections w sexl mode of transmissContact w and exposure to infect w a sexl mode of transmissHuman immunodeficiency virus [HIV] counselingOther sex counseling Ankush Dash. [address], [place], [id number], [place]. tel:[phone] Referring Provider: Mary Jane Lechuga, [address], [place], [id number]. tel:[phone] [facility] [place], [address], [place], [id number], [place] tel:[phone] [facility] [place] Other sex counselin gEncntr screen for infections w sexl mode of transmissEncounter for oth general cnsl and advice on contraceptionAcute vaginitis Lora Tabor. [address], [place], [id number], [place]. tel:[phone] Referring Provider: Sharona Paulino, [address], [place], [id number]. tel:[phone] [facility] [place], [address], [place], [id number], [place] tel:[phone] [facility] [place] Other sex counselin gEncounter for oth general cnsl and advice on contraceptionEncntr screen for infections w sexl mode of transmissHigh risk heterosexual behavior De Alfaro. [address] [place] [address], [id number], [place]. tel:[phone] Referring Provider: Airam Kc, [address] [place] [address], [id number]. tel:[phone] [facility], [address] [place] [address], [id number], [place] tel:[phone] [facility] [place] Herpesviral vulvovaginitis Ju l- Ye Amos. [address] [place] [address], [id number], [place]. tel:[phone] [facility], [address] [place] [address], [id number], [place] tel:[phone] [facility] [place] Gonococcal cervicit is, unspecifiedOther sex counseling De Alfaro. [address] [place] [address], [id number], [place]. tel:[phone] Referring Provider: Airam Kc, [address] [place] [address], [id number]. tel:[phone] [facility], [address] [place] [address], [id number], [place] tel:[phone] [facility] [place] Herpesviral vulvovaginitis Ju n Ankush Dash. [address] [place] [address], [id number], [place]. tel:[phone] [facility], [address] [place] [address], [id number], [place] tel:[phone] [facility] [place] Frequency of mictur itionEncntr screen for infections w sexl mode of transmissEncounter for screening for human immunodeficiency virusHuman immunodeficiency virus [HIV] counselingOther sex counselingAcute vaginitisCandidiasis of vulva and vaginaOther specified noninflammatory disorders of vaginaUlceration of vulva Ankush Dash. [address], [place], [id number], [place]. tel:[phone] Referring Provider: Mary Jane Lechuga, [address], [place], [id number]. tel:[phone] [facility], [address] [place] [address], [id number], [place] tel:[phone] [facility] [place] Body mass index (BM I) 28.0-28.9, adultHuman immunodeficiency virus [HIV] counselingEncntr screen for infections w sexl mode of transmissHigh risk heterosexual behaviorEncounter for oth screening for malignant neoplasm of breastEncntr for hvac service manager exam (general) (routine) w/o abn findings King Cheryl. [address], [place], [id number]. tel:[phone] Referring Provider: Cheryl Lane, [address] [place], [place], [id number]. tel:[phone] [facility], [address] [place] [address], [id number], [place] tel:[phone] [facility] [place] Body mass index (BM I) 28.0-28.9, adultEncntr for hvac service manager exam (general) (routine) w/o abn findingsEncntr screen for infections w sexl mode of transmissHigh risk heterosexual behaviorEncounter for oth screening for malignant neoplasm of breast Lilly Gutierrez. [address] [place] [address], [id number], [place]. tel:[phone] Referring Provider: Brenda Carr, [address] [place] [address], [id number]. tel:[phone] [facility], [address] [place] [address], [id number], [place] tel:[phone] [facility] [place] DysuriaYeast-vulvov aginalGenital Itching Lilly Gutierrez. [address], [place], [id number], . tel:[phone] [facility], [address] [place] [address], [id number], tel:[phone] [facility] HIV CounselingSTI S creeningVaginal DischargeBVMenopause SXDysuria Leyva Brigitte. [address] [place] [address], [address] [place] [address], . tel:[phone] [facility], [address] [place] [address], [id number], [place] tel:[phone] [facility] No Information Mariella Gutierrez. [address] [place] [address], [id number], . tel:[phone] [facility], [address] [place] [address], [address] [place] [address], tel:[phone] [facility] Nipple DischargePT, Negati ve Lilly Gutierrez. [address] [place] [address], [id number], . tel:[phone] Family History Family Member Diagnosis Age At Onset No Information Immunizations Vaccine Date Status Comments tetanus toxoid, adsorbed administered Note: d ates unknown ; Source: Source Unspecified Payers Payer name Insurance type Covered alliance party ID Authorization(s ) [facility] CI [id number] Social History Type Description Quantity Date Captured [...] management education, gu idance, and counseling completed History Of Present Illness Encounter Date Complaint [...] Date No Information Medical Equipment Description Device Eureka Device Identifier Effective Christopher es (start - stop) Status No Information Mental Status Date Cognitive Assessment No Information Health Concerns Observation Date No Information Concern Status Date No Information Physical Examination Exam Findings Details No Information
--- OUTSIDE RECORDS SUMMARY | 2021-04-30 18:25 | CCD ---
Author Author [facility] Organization [facility] Address Unknown Phone Unavailable Care Team Providers Care Leasing Property Manager Name Role Phone Maggy Anaya Unavailable PROBLEMS Type Condition ICD9-CM Code LHA59-WU Code Onset Dates Condition S tatus W/U Status Risk SNOMED Code Notes Problem Fatty liver K76.0 Active confirmed 17211317 7 Problem Alcohol abuse F10.10 Active confirmed 589364 05 Problem Dyslipidemia E78.5 Active confirmed 0971919 07 Problem Psoriasis L40.9 Active confirmed 2815180 Problem Dry eyes H04.123 Active confirmed 192860239 Problem Gastroesophageal reflux disease, esophagitis pre sence not specified K21.9 Active confirmed 666218874 Problem Vitamin D deficiency E55.9 Active confirmed 50303169 Problem Essential hypertension I10 Active confirmed 89305726 Problem Bilateral carpal tunnel syndrome G56.03 Active conf irmed 41595719 Problem Carpal tunnel syndrome of right wrist G56.01 Ac tive confirmed 211623758958710 Problem Psoriatic arthritis L40.50 Active confirmed 224592111 Problem Osteoarthritis of multiple joints, unspecified o steoarthritis type M15.9 Active confirmed 578412281 Problem High risk medication use Z79.899 Active confirmed 932450280119289 Problem Major depressive disorder in full remission, unspecified whether recurrent F32.5 Active confirmed 81583848 Problem Liver disease K76.9 Active confirmed 797262 003 ALLERGIES Allergen (clinical drug ingredient) Drug/Non Drug Allergy do cumented on EMR Reaction Allergy Type Onset Date Status sucralfate Carafate([facility] Code:[address]-45) Hives Drug Allergy Active Triaminic Cold/Cough Hives Drug Allergy Ac tive quetiapine Seroquel no control over small motor movements Drug Fernando rgy Active tramadol Ultram([facility] Code:[address]-21) Hives Drug Allergy Active amlodipine Amlodipine([facility] Code:[address]-65) joint pain an d swelling Drug Allergy Active metformin Metformin Nausea/Vomiting Drug Allergy Active Sulfasalazine Sulfa Antibiotics Rash Drug Allergy Ac tive Levaquin not sure Drug Allergy Active ENCOUNTERS from 1960 to 2021-04-24 Encounter Location Date Provider Diagnosis [facility] Resident [address] [facility] [address] [phone] [place] [address] 15 Apr, 2021 Maggy Movsesian Bunion of right foot M21.611 and Upper respiratory infection, acute J06.9 IMMUNIZATIONS Vaccine Route Administration Date Status Influenza [...] last smoked? 1-5 years REASON FOR REFERRAL from 1960 to 2021-04-24 Reason Second opinon on bunion/bony lesion at the base of the right great toe Diagnosis 1 Bunion of right foot (M21.61 1) Referral Organization [facility] Resident Referring Provider First Name Maggy Referring Provider Last Name Héctor Referring Provider Specialty Internal Medicine Referred Provider Ga Monreal Referred Provider Specialty Podiatry Referral Priority Urgent VITAL SIGNS Weight 151.4 lbs Apr, Weight-kg 68.67 kg Apr, Height 64 in Apr, BMI 25.98 kg/m2 Apr, Heart Rate 99 /min Apr, Respiratory Rate 18 /min Apr, Temperature 97.9 degrees Fahrenheit Apr, Oximetry 100 Apr, Blood pressure systolic 124 mm Hg Apr, Blood pressure diastolic 70 mm Hg Apr, MEDICATIONS Medication SIG (Take, Route, Frequency, Duration) Notes Start Da te End Date Status [place] 3 1000 MG 1 capsule Orally Once a day for 30 day(s) Active Vitamin D 1000 UNIT 1 tablet Orally Once a day for 30 Active Ventolin HFA 108 (90 Base) MCG/ACT 2 puffs as needed Inhalation every 6 hrs prn Active Furosemide 20 MG TAKE ONE TABLET BY MOUTH EVERY DAY for 30 Active Plantar Fasciitis Support - as directed [...] areas on body with psoriasis prn Active PROCEDURES No Information RESULTS Component Value Reference Range NADEEM COVID AG (Point of Care) Reviewed date:04/20/2021 17:20:13 Interpretation: Performing Lab:[facility]ly [facility], RALS INTERFACE [id number] , ,[place] [address] NADEEM COVID ANTIGEN POSITIVE NEGATIVE REASON FOR VISIT Dr Méndez, [facility], bunion correction R foot, 04/27/21 MEDICAL (GENERAL) HISTORY Type Description Date Medical [...] No Information FUNCTIONAL STATUS No Information ASSESSMENTS Encounter Date Diagnosis Assessment Notes Treatment Notes Treatm ent Clinical Notes Apr, Bunion of right foot (ICD-10 - M21.611) Patient was initially evaluated by Dr. Méndez and discuss corrective surgery for her foot her appointment today was both being preop for that. However, she would like a second opinion from Dr. Keo Harrison and needs a referral. We will postpone her preop evaluation until she is evaluated by Dr. Monreal. Apr, Upper respiratory infection, acute (ICD-10 - J06 .9) Patient's [id number] Covid test was positive. She was instructed on quarantine and supportive care. We discussed outpatient antibody infusion however she does not have the risk factors to qualify for this. She was not vaccinated for COVID-19. Recommended vaccination after recovery. PLAN OF TREATMENT Medication Medication Name Sig Start Date Stop Date Fluocinolone Acetonide Scalp 0.01 % 1 application to a ffected area Externally Twice a day to scalp areas with rash for 14 days Treatment Notes Assessment Notes Clinical Notes Bunion of right foot Patient was initial ly evaluated by Dr. Méndez and discuss corrective surgery for her foot her appointment today was both being preop for that. However, she would like a second opinion from Dr. Keo Harrison and needs a referral. We will postpone her preop evaluation until she is evaluated by Dr. Monreal. Upper respiratory infection, acute Patie nt's [id number]-[id number] Covid test was positive. She was instructed on quarantine and supportive care. We discussed outpatient antibody infusion however she does not have the risk factors to qualify for this. She was not vaccinated for COVID-19. Recommended vaccination after recovery. Treatment Notes Test Name Order Date Coronavirus 2019 Nasopharygeal (Send Out) COVID 2020-07 0-15 Rapid Flu (Nadeem Influenza A+B RAZA) 2021-04-20 Referrals Referral Date Details Second opinon on bunion/bony lesion at the base of the right great toe, Ga Monreal Next Appt Details 4 Weeks Reason: Insurance Providers Payer Name Payer Address Payer Phone Insured Name Patient Relati onship to Insured Coverage Start Date Coverage End Date [facility] COMM[facility]AN [facility] [address] [facility] [phone] CAROLA DRAKE self
--- OUTSIDE RECORDS SUMMARY | 2021-04-30 18:25 | CCD | Continuity of Care Document ---
Author Author [facility] Organization [facility] Address Unknown Phone Unavailable Care Team Providers Care Cushion Mat Maker Name Role Phone Bette Belcher MD Unavailable [...] (unknown strength) Not Available - Activ e Problems Condition Effective Dates (start - stop) Clinical Status C omments Body mass index (BMI) 28.0-28.9, adult - Body mass index (BMI) 28.0-28.9, adult - Other sex counseling Encntr screen for infections w sexl mode of transmiss High risk heterosexual behavior Gonococcal infection, unspecified Encntr screen for infections [...] for malignant neoplasm of breast Encntr for demand planning analyst exam (general) (routine) w/o abn findings Encntr for demand planning analyst exam (general) (routine) w/o abn findings Encntr [...] [facility], [address] , [place], [place], [id number], [place] tel:[phone] [facility] No Information W josh Amos. [address] [place] [address], [id number], [place]. tel:[phone] [facility], [address] [place] [address], [id number], [place] tel:[phone] GY[facility]Y [place] Other sex counselin gEncntr screen for infections w sexl mode of transmissHigh risk heterosexual behavior Lora Tabor. [address] [place] [address], [id number], [place]. tel:[phone] Referring Provider: Sharona Paulino, [address] [place] [address], [id number]. tel:[phone] Provider: GYPSY Nurse/[place]. [facility], [address] [place] [address], [id number], [place] tel:[phone] [facility] [place] Gonococcal infectio n, unspecifiedEncntr screen for infections w sexl mode of transmissContact w and exposure to infect w a sexl mode of transmissHuman immunodeficiency virus [HIV] counselingOther sex counseling Ankush Dash. [address] [place], [place], [id number], [place]. tel:[phone] Referring Provider: Mary Jane Lechuga, [address] [place] [address], [id number]. tel:[phone] [facility], [address] [place] [address], [id number], [place] tel:[phone] [facility] [place] Other sex counselin gEncntr screen for infections w sexl mode of transmissEncounter for oth general cnsl and advice on contraceptionAcute vaginitis Lora Tabor. [address] [place] [address], [id number], [place]. tel:[phone] Referring Provider: Sharona Paulino, [address] [place] [address], [id number]. tel:[phone] [facility] [place], [address] [place], [place], [id number], [place] tel:[phone] [facility] [place] Other sex counselin gEncounter for oth general cnsl and advice on contraceptionEncntr screen for infections w sexl mode of transmissHigh risk heterosexual behavior Dwello Trupti Alfaro. [address], [place], [id number], [place]. tel:[phone] Referring Provider: Airam Kc, [address], [place], [id number]. tel:[phone] [facility] [place], [address] [place], [place], [id number], [place] tel:[phone] [facility] [place] Herpesviral vulvovaginitis Ju l- Ye Amos. [address] [place] [address], [id number], [place]. tel:[phone] [facility] [place], [address] [place] [address], [id number], [place] tel:[phone] [facility] [place] Gonococcal cervicit is, unspecifiedOther sex counseling De Alfaro. [address] [place], [place], [id number], [place]. tel:[phone] Referring Provider: Airam Kc, [address], [place], [id number]. tel:[phone] [facility] [place], [address] [place], [place], [id number], [place] tel:[phone] [facility] [place] Herpesviral vulvovaginitis Ju n Ankush Dahs. [address] [place] [address], [id number], [place]. tel:[phone] [facility] [place], [address] [place] [address], [id number], [place] tel:[phone] [facility] Frequency of mictur itionEncntr screen for infections w sexl mode of transmissEncounter for screening for human immunodeficiency virusHuman immunodeficiency virus [HIV] counselingOther sex counselingAcute vaginitisCandidiasis of vulva and vaginaOther specified noninflammatory disorders of vaginaUlceration of vulva Ankush Dash. [address] [place] [address], [id number], . tel:[phone] Referring Provider: Mary Jane Lechuga, [address] [place] [address], [id number]. tel:[phone] [facility], [address] [place] [address], [id number], tel:[phone] [facility] Body mass index (BM I) 28.0-28.9, adultHuman immunodeficiency virus [HIV] counselingEncntr screen for infections w sexl mode of transmissHigh risk heterosexual behaviorEncounter for oth screening for malignant neoplasm of breastEncntr for demand planning analyst exam (general) (routine) w/o abn findings King Cheryl. [address] [place] [address], [id number]. tel:[phone] Referring Provider: Cheryl Lane, [address] [place] [address], [id number]. tel:[phone] [facility], [address] [place] [address], [id number], tel:[phone] [facility] Body mass index (BM I) 28.0-28.9, adultEncntr for demand planning analyst exam (general) (routine) w/o abn findingsEncntr screen for infections w sexl mode of transmissHigh risk heterosexual behaviorEncounter for oth screening for malignant neoplasm of breast Lilly Gutierrez. [address] [place] [address], [id number], . tel:[phone] Referring Provider: Brenda Carr, [address] [place] [address], [id number]. tel:[phone] [facility], [address] [place] [address], [id number], tel:[phone] [facility] DysuriaYeast-vulvov aginalGenital Itching Lilly Gutierrez. [address] [place] [address], [address] [place] [address], . tel:[phone] [facility], [address] [place] [address], [id number], [place] tel:[phone] [facility] HIV CounselingSTI S creeningVaginal DischargeBVMenopause SXDysuria Levya Brigitte. [address] [place] [address], [address] [place] [address], . tel:[phone] [facility], [address] [place] [address], [address] [place] [address], tel:[phone] [facility] No Information P griffin Gutierrez. [address] [place] [address], [id number], . tel:[phone] [facility], [address] [place] [address], [address] [place] [address], tel:[phone] [facility] Nipple DischargePT, Negati ve Lilly Gutierrez. [address] [place] [address], [id number], . tel:[phone] Family History Family Member Diagnosis Age At Onset No Information Immunizations Vaccine Date Status Comments tetanus toxoid, adsorbed administered Note: d ates unknown ; Source: Source Unspecified Payers Payer name Insurance type Covered constitution party ID Authorization(s ) [facility] CI [id number] Social History Type Description Quantity Date Captured [...] Date No Information Medical Equipment Description Device [place] Device Identifier Effective Christopher es (start - stop) Status No Information Mental Status Date Cognitive Assessment No Information Health Concerns Observation Date No Information Concern Status Date No Information Physical Examination Exam Findings Details No Information
--- OUTSIDE RECORDS SUMMARY | 2021-04-30 18:25 | CCD ---
Author Author [facility] Organization [facility] Address Unknown Phone Unavailable Care Team Providers Care Sales/Marketing Name Role Phone Radha Gerber Unavailable PROBLEMS Type Condition ICD9-CM Code QCT51-SW Code Onset Dates Condition S tatus W/U Status Risk SNOMED Code Notes Problem Fatty liver K76.0 Active confirmed 31101372 7 Problem Alcohol abuse F10.10 Active confirmed 195881 05 Problem Dyslipidemia E78.5 Active confirmed 1960403 07 Problem Psoriasis L40.9 Active confirmed 1554510 Problem Dry eyes H04.123 Active confirmed 065577832 Problem Gastroesophageal reflux disease, esophagitis pre sence not specified K21.9 Active confirmed 492792407 Problem Vitamin D deficiency E55.9 Active confirmed 20363091 Problem Essential hypertension I10 Active confirmed 41347136 Problem Bilateral carpal tunnel syndrome G56.03 Active conf irmed 36567533 Problem Carpal tunnel syndrome of right wrist G56.01 Ac tive confirmed 291268786682106 Problem Psoriatic arthritis L40.50 Active confirmed 961592067 Problem Osteoarthritis of multiple joints, unspecified o steoarthritis type M15.9 Active confirmed 717564466 Problem High risk medication use Z79.899 Active confirmed 146349002051305 Problem Major depressive disorder in full remission, unspecified whether recurrent F32.5 Active confirmed 22420054 Problem Liver disease K76.9 Active confirmed 967104 003 ALLERGIES Allergen (clinical drug ingredient) Drug/Non Drug Allergy do cumented on EMR Reaction Allergy Type Onset Date Status sucralfate Carafate([facility] Code:[address]-22) Hives Drug Allergy Active Triaminic Cold/Cough Hives Drug Allergy Ac tive quetiapine Seroquel no control over small motor movements Drug Fernando rgy Active tramadol Ultram([facility]NOTE 3] Code:[address]-91) Hives Drug Allergy Active amlodipine Amlodipine([facility]NOTE 3] Code:[address]-89) joint pain an d swelling Drug Allergy Active metformin Metformin Nausea/Vomiting Drug Allergy Active Sulfasalazine Sulfa Antibiotics Rash Drug Allergy Ac tive Levaquin not sure Drug Allergy Active ENCOUNTERS from 1960 to 2021-04-23 Encounter Location Date Provider Diagnosis [facility] Dermatology [address] [facility] [phone] [place] [address] Apr, Radha Braydenskdavis Psoriasis L40.9 IMMUNIZATIONS Vaccine Route Administration Date Status Influenza [...] Notes Start Da te End Date Status [place] 3 1000 MG 1 capsule Orally Once [...] psoriasis prn Active PROCEDURES No Information RESULTS No Results REASON FOR VISIT rx MEDICAL (GENERAL) HISTORY Type Description Date Medical [...] Treatment Notes Treatm ent Clinical Notes Apr, Psoriasis (ICD-10 - L40.9) PLAN OF TREATMENT Medication Medication Name Sig Start Date Stop Date Fluocinolone Acetonide Scalp 0.01 % 1 application to a ffected area Externally Twice a day to scalp areas with rash for 14 days Insurance Providers Payer Name Payer Address Payer Phone Insured Name Patient Relati onship to Insured Coverage Start Date Coverage End Date [facility] COMM[facility] [address] [facility] [id number] CAROLA DRAKE self
--- OUTSIDE RECORDS SUMMARY | 2021-04-30 18:25 | CCD | Continuity of Care Document ---
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 [address] [place], [place], [id number], [place]. tel:[phone] [facility] [place], [address] [place] [address], [id number], [place] tel:[phone] [facility] [place] Gonococcal infectio n, unspecifiedEncntr screen for infections w sexl mode of transmissContact w and exposure to infect w a sexl mode of transmissHuman immunodeficiency virus [HIV] counselingOther sex counseling Ankush Dash. [address] [place], [place], [id number], [place]. tel:[phone] Referring Provider: Mary Jane Lechuga, [address] [place] [address], [id number]. tel:[phone] [facility] [place], [address] [place] [address], [id number], [place] tel:[phone] [facility] [place] Other sex counselin gEncntr screen for infections w sexl mode of transmissEncounter for oth general cnsl and advice on contraceptionAcute vaginitis Lora Tabor. [address] [place] [address], [id number], [place]. tel:[phone] Referring Provider: Sharona Paulino, [address] [place] [address], [id number]. tel:[phone] [facility], [address] [place] [address], [id number], [place] tel:[phone] [facility] [place] Other sex counselin gEncounter for oth general cnsl and advice on contraceptionEncntr screen for infections w sexl mode of transmissHigh risk heterosexual behavior De Alfaro. [address] [place] [address], [id number], [place]. tel:[phone] Referring Provider: Airam Kc, [address] [place] [address], [id number]. tel:[phone] [facility] [place], [address] [place], [place], [id number], [place] tel:[phone] [facility] [place] Herpesviral vulvovaginitis Ju l Ye Bette. [address] [place], [place], [id number], [place]. tel:[phone] [facility], [address] [place] [address], [id number], [place] tel:[phone] [facility] [place] Gonococcal cervicit is, unspecifiedOther sex counseling De Alfaro. [address] [place], [place], [id number], [place]. tel:[phone] Referring Provider: Airam Kc, [address] [place] [address], [id number]. tel:[phone] [facility], [address] [place] [address], [id number], [place] tel:[phone] [facility] [place] Herpesviral vulvovaginitis Ju n Ankush Dash. [address] [place] [address], [id number], [place]. tel:[phone] [facility], [address] [place] [address], [id number], [place] tel:[phone] [facility] [place] Frequency of mictur itionEncntr screen for infections w sexl mode of transmissEncounter for screening for human immunodeficiency virusHuman immunodeficiency virus [HIV] counselingOther sex counselingAcute vaginitisCandidiasis of vulva and vaginaOther specified noninflammatory disorders of vaginaUlceration of vulva Ankush Dash. [address] [place] [address], [id number], [place]. tel:[phone] Referring Provider: Mary Jane Lechuga, [address] [place] [address], [id number]. tel:[phone] [facility], [address] [place] [address], [id number], [place] tel:[phone] [facility] [place] Body mass index (BM I) 28.0-28.9, adultHuman immunodeficiency virus [HIV] counselingEncntr screen for infections w sexl mode of transmissHigh risk heterosexual behaviorEncounter for oth screening for malignant neoplasm of breastEncntr for internist exam (general) (routine) w/o abn findings King Cheryl. [address] [place], [place], [id number]. tel:[phone] Referring Provider: Cheryl Lane, [address] [place], [place], [id number]. tel:[phone] [facility], [address] [place] [address], [id number], [place] tel:[phone] [facility] [place] Body mass index (BM I) 28.0-28.9, adultEncntr for internist exam (general) (routine) w/o abn findingsEncntr screen for infections w sexl mode of transmissHigh risk heterosexual behaviorEncounter for oth screening for malignant neoplasm of breast Lilly Gutierrez. [address] [place] [address], [id number], [place]. tel:[phone] Referring Provider: Brenda Carr, [address] [place] [address], [id number]. tel:[phone] [facility], [address] [place] [address], [id number], [place] tel:[phone] [facility] [place] DysuriaYeast-vulvov aginalGenital Itching Lilly Gutierrez. [address] [place] [address], [id number], [place]. tel:[phone] [facility], [address] [place] [address], [id number], [place] tel:[phone] [facility] [place] HIV CounselingSTI S creeningVaginal DischargeBVMenopause SXDysuria Leyvadwain Briggs. [address] [place] [address], [id number], . tel:[phone] [facility], [address] [place] [address], [id number], tel:[phone] [facility] [place] No Information P griffin Ryane. [address] [place], [place], [id number], [place]. tel:[phone] [facility], [address] [place] [address], [id number], tel:[phone] [facility] [place] Nipple DischargePT, Negati ve Leigh Annceci Brenda. [address] [place] [address], [id number], . tel:[phone] Family History Family Member Diagnosis Age At Onset No Information Immunizations Vaccine Date Status Comments tetanus toxoid, adsorbed administered Note: d ates unknown ; Source: Source Unspecified Payers Payer name Insurance type Covered green party ID Authorization(s ) [facility] CI [id number] Social History Type Description Quantity Date Captured [...] Date No Information Medical Equipment Description Device [place] Device Identifier Effective Christopher es (start - stop) Status No Information Mental Status Date Cognitive Assessment No Information Health Concerns Observation Date No Information Concern Status Date No Information Physical Examination Exam Findings Details No Information
--- OUTSIDE RECORDS SUMMARY | 2021-04-30 18:25 | CCD | Continuity of Care Document ---
Author Author [facility] Organization [facility] Address Unknown Phone Unavailable Care Team Providers Care Beverage Specialist Name Role Phone Sharona Bryant Unavailable Unavailable Nurse/GYPSY MILLER Unavailable Unavailable Allergies, Adverse Reactions, Alerts Substance [...] for malignant neoplasm of breast Encntr for technology applications consultant exam (general) (routine) w/o abn findings Encntr for technology applications consultant exam (general) (routine) w/o abn findings Encntr [...] V Leiden mutation Active Procedures Procedure Date CHYLMD TRACH, Pharyngeal N.GONORRHOEAE, Pharyngeal Exclude From Giovanna For Title X CVR Excavation Laborer.Svc. Other Results Test Name Date and Time Measure Units Reference Range Abnormal Flag St atus Comments No Information Advance Directives Directive Yes / No Effective Date File Name No Information Encounters Encounter Description Practice Location Reason(s) For Visit Diagnose s Date Provider Providers Copied on Encounter [facility] [place], [address] [place] [address], [id number], [place] tel:[phone] [facility] [place] Other sex counselin gEncntr screen for infections w sexl mode of transmissHigh risk heterosexual behavior Lora Tabor. [address] [place] [address], [id number], [place]. tel:[phone] Referring Provider: Sharona Paulino, [address] [place], [place], [id number]. tel:[phone] Provider: GYPSY Nurse/[place]. [facility] [place], [address] [place] [address], [id number], [place] tel:[phone] [facility] [place] Gonococcal infectio n, unspecifiedEncntr screen for infections w sexl mode of transmissContact w and exposure to infect w a sexl mode of transmissHuman immunodeficiency virus [HIV] counselingOther sex counseling Ankush Dash. [address] [place], [place], [id number], [place]. tel:[phone] Referring Provider: Mary Jane Lechuga, [address] [place] [address], [id number]. tel:[phone] [facility] [place], [address] [place] [address], [id number], [place] tel:[phone] [facility] [place] Other sex counselin gEncntr screen for infections w sexl mode of transmissEncounter for oth general cnsl and advice on contraceptionAcute vaginitis Lora Tabor. [address] [place] [address], [id number], [place]. tel:[phone] Referring Provider: Sharona Paulino, [address] [place] [address], [id number]. tel:[phone] [facility], [address] [place] [address], [id number], [place] tel:[phone] [facility] [place] Other sex counselin gEncounter for oth general cnsl and advice on contraceptionEncntr screen for infections w sexl mode of transmissHigh risk heterosexual behavior Rayshawno Trupti Alfaro. [address] [place] [address], [id number], [place]. tel:[phone] Referring Provider: Airam Kc, [address] [place], [place], [id number]. tel:[phone] [facility], [address] [place] [address], [id number], [place] tel:[phone] [facility] [place] Herpesviral vulvovaginitis Ju l- Ye Bette. [address] [place] [address], [id number], [place]. tel:[phone] [facility], [address] [place] [address], [id number], [place] tel:[phone] [facility] [place] Gonococcal cervicit is, unspecifiedOther sex counseling De Alfaro. [address] [place], [place], [id number], [place]. tel:[phone] Referring Provider: Airam cK, [address] [place] [address], [id number]. tel:[phone] [facility], [address] [place] [address], [id number], [place] tel:[phone] [facility] [place] Herpesviral vulvovaginitis Ju n Ankush Dash. [address] [place] [address], [id number], [place]. tel:[phone] [facility] [place], [address] [place] [address], [id number], [place] tel:[phone] [facility] [place] Frequency of mictur itionEncntr screen for infections w sexl mode of transmissEncounter for screening for human immunodeficiency virusHuman immunodeficiency virus [HIV] counselingOther sex counselingAcute vaginitisCandidiasis of vulva and vaginaOther specified noninflammatory disorders of vaginaUlceration of vulva Ankush Dash. [address] [place], [place], [id number], [place]. tel:[phone] Referring Provider: Mary Jane Lechuga, [address] [place], [place], [id number]. tel:[phone] [facility], [address] [place] [address], [id number], [place] tel:[phone] [facility] Body mass index (BM I) 28.0-28.9, adultHuman immunodeficiency virus [HIV] counselingEncntr screen for infections w sexl mode of transmissHigh risk heterosexual behaviorEncounter for oth screening for malignant neoplasm of breastEncntr for technology applications consultant exam (general) (routine) w/o abn findings King Cheryl. [address] [place], [place], [id number]. tel:[phone] Referring Provider: Cheryl Lane, [address] [place], [place], [id number]. tel:[phone] [facility], [address] [place] [address], [id number], [place] tel:[phone] [facility] Body mass index (BM I) 28.0-28.9, adultEncntr for technology applications consultant exam (general) (routine) w/o abn findingsEncntr screen for infections w sexl mode of transmissHigh risk heterosexual behaviorEncounter for oth screening for malignant neoplasm of breast Lilly Gutierrez. [address] [place] [address], [id number], [place]. tel:[phone] Referring Provider: Brenda Carr, [address] [place] [address], [id number]. tel:[phone] [facility], [address] [place] [address], [id number], tel:[phone] [facility] DysuriaYeast-vulvov aginalGenital Itching Lilly Gutierrez. [address] [place], [place], [id number], . tel:[phone] [facility], [address] [place] [address], [id number], [place] tel:[phone] [facility] HIV CounselingSTI S creeningVaginal DischargeBVMenopause SXDysuria Leyva Brigitte. [address] [place] [address], [address] [place] [address], . tel:[phone] [facility], [address] [place] [address], [address] [place] [address], tel:[phone] [facility] [place] No Information P griffin Gutierrez. [address] [place] [address], [id number], [place]. tel:[phone] [facility], [address] [place] [address], [address] [place] [address], tel:[phone] [facility] Nipple DischargePT, Negati ve Lilly Gutierrez. [address] [place], [place], [address] [place] [address], . tel:[phone] Family History Family Member Diagnosis Age At Onset No Information Immunizations Vaccine Date Status Comments tetanus toxoid, adsorbed administered Note: d ates unknown ; Source: Source Unspecified Payers Payer name Insurance type Covered democrat ID Authorization(s ) [facility] CI [id number] Social History Type Description Quantity Date Captured [...] (BMI) 28.0-28.9, adult Assessments Type Assessment Date assessment Other sex counseling assessment Encntr screen for infections w sexl mode of transmiss assessment High risk heterosexual behavior 021 Goals Health Concern Goal Type Priority Status Date No Information Medical Equipment Description Device [place] Device Identifier Effective Christopher es (start - stop) Status No Information Mental Status Date Cognitive Assessment No Information Health Concerns Observation Date No Information Concern Status Date No Information Physical Examination Exam Findings Details No Information
--- OUTSIDE RECORDS SUMMARY | 2021-04-30 18:26 | CCD ---
Author Author [facility] Organization [facility] Address Unknown Phone Unavailable Care Team Providers Care Mitten Stitcher Name Role Phone Maggy Anaya Unavailable PROBLEMS Type Condition ICD9-CM Code [id number] Code Onset Dates Condition S tatus W/U Status Risk SNOMED Code Notes Problem Dyslipidemia E78.5 Active confirmed 5487342 07 Problem Psoriasis L40.9 Active confirmed 2440825 Problem Obesity, unspecified E66.9 Active confirmed 428773601 Problem Difficulty swallowing solids R13.10 Active confirme d 113151403 Problem Psoriatic arthritis L40.50 Active confirmed 351105280 Problem Dysphagia, unspecified type R13.10 Active confirmed 78743564 Problem Dry eyes H04.123 Active confirmed 498321855 Problem Hypertension I10 Active confirmed 9335534 3 Problem Bilateral carpal tunnel syndrome G56.03 Active conf irmed 11739859 Problem Osteoarthritis of multiple joints, unspecified o steoarthritis type M15.9 Active confirmed 456855724 Problem High risk medication use Z79.899 Active confirmed 963164576445784 Problem Major depressive disorder in full remission, unspecified whether recurrent F32.5 Active confirmed 02477403 Problem Gastroesophageal reflux disease without esophagitis K21.9 Active confirmed 885360996 Problem Vitamin D deficiency E55.9 Active confirmed 31586555 Problem Alcohol abuse F10.10 Active confirmed 380849 05 Problem Carpal tunnel syndrome of right wrist G56.01 Ac tive confirmed 712722167238370 Problem Gastroesophageal reflux disease, esophagitis pre sence not specified K21.9 Active confirmed 012931507 Problem Other chronic pain G89.29 Active confirmed 8 3299290 Problem Fatty liver K76.0 Active confirmed 81940292 7 Problem Type 2 diabetes mellitus wit hout complication, without long-term current use of insulin E11.9 Active confirmed 755570677 Problem Liver disease K76.9 Active confirmed 575231 003 Problem Essential hypertension I10 Active confirmed 38149014 Problem Other obesity due to excess calories E66.09 Act emma confirmed 894008302 ALLERGIES Allergen (clinical drug ingredient) Drug/Non Drug Allergy do cumented on EMR Reaction Allergy Type Onset Date Status Triaminic Cold/Cough Hives Drug Allergy Ac tive quetiapine Seroquel no control over small motor movements Drug Fernando rgy Active Metformin metformin Nausea/Vomiting Non Drug Allergy Act emma tramadol Ultram([facility] Code:[address]-71) Hives Drug Allergy Active amlodipine Amlodipine([facility] Code:[address]-54) joint pain an d swelling Drug Allergy Active sucralfate Carafate([facility] Code:[address]-98) Hives Drug Allergy Active Sulfa (for allergy use only) Rash Drug Allergy Active Levaquin not sure Drug Allergy Active ENCOUNTERS from 1960 to 2021-02-15 Encounter Location Date Provider Diagnosis [facility] Resident [address] [facility] [phone] [place] [address] 16 Jan, 2021 Maggy Movsesian Sensation of pressur e in bladder area R39.89 ; Type 2 diabetes mellitus without complication, without long-term current use of insulin E11.9 and Hypertension I10 IMMUNIZATIONS Vaccine Route Administration Date Status Influenza [...] REASON FOR REFERRAL No Information VITAL SIGNS Weight 161 lbs Jan, Height 64 in Jan, BMI 27.63 kg/m2 Jan, Heart Rate 99 /min Jan, Respiratory Rate 18 /min Jan, Temperature 98.1 degrees Fahrenheit Jan, Oximetry 96 Jan, Blood pressure systolic 122 mm Hg Jan, Blood pressure diastolic 70 mm Hg Jan, MEDICATIONS Medication SIG (Take, Route, Frequency, Duration) [...] as needed for 30 days Jul Active OneTouch Ultra II Test Strips as directed as needed for 30 days Jul, Active OneTouch Ultra 2 w/Device as directed as needed [...] a day for 30 day(s) Aug, Not-Taking [place] 3 1000 MG 1 capsule Orally Once a day for 30 day(s) Active PROCEDURES No Information RESULTS Component Value Reference Range Urinalysis, no Micro Reviewed date:01/19/2021 16:26:37 Interpretation: Performing Lab:[facility], [place] [address] Spec gravity 1.030 1.002 - 1.035 pH 5 5.0 - 9.0 Leukocyte trace Negative - Nitrate negative Negative - Protein negative Negative - mg/dl Glucose negative Negative - mg/dl Ketones negative Negative - mg/dl Urobili negative Normal - mg/dl Bilirubin negative Negative - Blood negative Negative - Internal QC Acceptable (Y/N) yes HEMOGLOBIN A1c Reviewed date:01/23/2021 07:52:23 Interpretation: Performing Lab:[facility], [facility] [address] [facility] [address] , ,[place] [address] HEMOGLOBIN A1c 6.0 ESTIMATED AVERAGE GLUCOSE 126 60-110 Basic Metabolic Profile (BMP) Reviewed date:01/23/2021 07:52:33 Interpretation: Performing Lab:[facility] [address] [facility] [address] , ,[place] [address] GLUCOSE, FASTING 82 70-100 BLOOD UREA NITROGEN 17 7-18 CREATININE FOR GFR 0.99 0.55-1.30 GLOMERULAR FILTRATION RATE > 60.0 >45 SODIUM LEVEL 142 136-145 POTASSIUM SERUM 3.8 3.5-5.1 CHLORIDE LEVEL 110 98-107 CARBON DIOXIDE LEVEL 28 21-32 CALCIUM LEVEL 9.2 8.8-10.2 REASON FOR VISIT 3 months DIABETES MEDICAL (GENERAL) HISTORY Type Description Date Medical [...] Notes Treatment Notes Treatm ent Clinical Notes Jan, Sensation of pressure in bladder area (ICD-10 - R39.89) In-house UA does not show signs of infection. Recommended the patient continue to monitor her symptoms and follow-up if not improved. Jan, Type 2 diabetes mellitus wit hout complication, without long-term current use of insulin (ICD-10 - E11.9) We will recheck her lab work today. The patient continues to work on weight loss. Jan, Hypertension (ICD-10 - I10) Well-controlled, continue current medications. Jan, Other Will follow up on other chronic medical conditions at future follow up. PLAN OF TREATMENT Treatment Notes Assessment Notes Clinical Notes Sensation of pressure in bladder area In -house UA does not show signs of infection. Recommended the patient continue to monitor her symptoms and follow- up if not improved. Type 2 diabetes mellitus without complic ation, without long-term current use of insulin We will recheck her lab work today. The patient continues to work on weight loss. Hypertension Well-controlled, con tinue current medications. Next Appt Details 4 Weeks Reason:follow up bladder pressur e Provider Name:Radha Abel Ameliadavida, 04:30:00 PM, [address] [place] [address], , [place], [place], [facility], Follow Up:4 Weeksfollow up bladder pressure Insurance Providers Payer Name Payer Address Payer Phone Insured Name Patient Relati onship to Insured Coverage Start Date Coverage End Date [facility] [employer] [address] [facility] [phone] CAROLA DRAKE self
--- OUTSIDE RECORDS SUMMARY | 2021-04-30 18:26 | CCD | Continuity of Care Document ---
Author Author [facility] Organization [facility] Address Unknown Phone Unavailable Care Team Providers Care Worm Farm Laborer Name Role Phone Ankush PRODUCTION GENERALIST, Mary Jane Dash Unavailable Unavailable Allergies, Adverse Reactions, Alerts Substance [...] for malignant neoplasm of breast Encntr for digital experience manager exam (general) (routine) w/o abn findings Encntr for digital experience manager exam (general) (routine) w/o abn findings [...] V Leiden mutation Active Procedures Procedure Date OFFICE VISIT, EST Ceftriaxone sodium injection (Rocephin) HCS Without Test CVR Med.Svc. Other CVR Blood Pressure CVR Med.Svc. Height/Weight CVR Hedis Review Nurse.Svc. Contraceptive CVR Hedis Review Nurse.Svc. STI / H CVR Hedis Review Nurse.Svc. Preconception NURSE ONLY INJ. RN/CHOCOLATE FINISHER Only Results Test Name Date and Time Measure Units Reference Range Abnormal Flag St atus Comments No Information Advance Directives Directive Yes / No Effective Date File Name No Information Encounters Encounter Description Practice Location Reason(s) For Visit Diagnose s Date Provider Providers Copied on Encounter OFFICE VISIT, EST [facility] [address] [place] [address], [id number], [place] tel:[phone] [facility] [place] STI Treatment (chi ef complaint) Gonococcal infection, unspecifiedEncntr screen for infections w sexl mode of transmissContact w and exposure to infect w a sexl mode of transmissHuman immunodeficiency virus [HIV] counselingOther sex counseling Ankush Dash. [address] [place] [address], [id number], [place]. tel:[phone] Referring Provider: Mary Jane Lechuga, [address] [place] [address], [id number]. tel:[phone] [facility], [address] [place] [address], [id number], [place] tel:[phone] [facility] Other sex counselin gEncntr screen for infections w sexl mode of transmissEncounter for oth general cnsl and advice on contraceptionAcute vaginitis Lora Tabor. [address] [place] [address], [id number], [place]. tel:[phone] Referring Provider: Sharona Paulino, [address] [place] [address], [id number]. tel:[phone] [facility], [address] [place] [address], [id number], [place] tel:[phone] [facility] [place] Other sex counselin gEncounter for oth general cnsl and advice on contraceptionEncntr screen for infections w sexl mode of transmissHigh risk heterosexual behavior Dwello Trupti Alfaro. [address] [place] [address], [id number], [place]. tel:[phone] Referring Provider: Airam Kc, [address] [place], [place], [id number]. tel:[phone] [facility], [address] [place] [address], [id number], [place] tel:[phone] [facility] [place] Herpesviral vulvovaginitis Ju l- Ye Amos. [address] [place] [address], [id number], [place]. tel:[phone] [facility], [address] [place] [address], [id number], [place] tel:[phone] [facility] [place] Gonococcal cervicit is, unspecifiedOther sex counseling De Alfaro. [address] [place], [place], [id number], [place]. tel:[phone] Referring Provider: Airam Kc, [address] [place] [address], [id number]. tel:[phone] [facility], [address] [place] [address], [id number], [place] tel:[phone] [facility] [place] Herpesviral vulvovaginitis Ju n Ankush Dash. [address] [place] [address], [id number], [place]. tel:[phone] [facility], [address] [place] [address], [id number], [place] tel:[phone] [facility] [place] Frequency of mictur itionEncntr screen for infections w sexl mode of transmissEncounter for screening for human immunodeficiency virusHuman immunodeficiency virus [HIV] counselingOther sex counselingAcute vaginitisCandidiasis of vulva and vaginaOther specified noninflammatory disorders of vaginaUlceration of vulva Ankush Dash. [address] [place] [address], [id number], . tel:[phone] Referring Provider: Mary Jane Lechuga, [address] [place] [address], [id number]. tel:[phone] [facility], [address] [place] [address], [id number], [place] tel:[phone] [facility] [address] Body mass index (BM I) 28.0-28.9, adultHuman immunodeficiency virus [HIV] counselingEncntr screen for infections w sexl mode of transmissHigh risk heterosexual behaviorEncounter for oth screening for malignant neoplasm of breastEncntr for digital experience manager exam (general) (routine) w/o abn findings King Cheryl. [address] [place] [address], [id number]. tel:[phone] Referring Provider: Cheryl Lane, [address] [place], [place], [id number]. tel:[phone] [facility], [address] [place] [address], [id number], [place] tel:[phone] [facility] [address] Body mass index (BM I) 28.0-28.9, adultEncntr for digital experience manager exam (general) (routine) w/o abn findingsEncntr screen for infections w sexl mode of transmissHigh risk heterosexual behaviorEncounter for oth screening for malignant neoplasm of breast Lilly Gutierrez. [address] [place] [address], [id number], [place]. tel:[phone] Referring Provider: Brenda Carr, [address] [place] [address], [id number]. tel:[phone] [facility], [address] [place] [address], [id number], tel:[phone] [facility] [address] DysuriaYeast-vulvov aginalGenital Itching Lilly Gutierrez. [address] [place], [place], [id number], . tel:[phone] [facility], [address] [place] [address], [address] [place] [address], tel:[phone] [facility] [address] HIV CounselingSTI S creeningVaginal DischargeBVMenopause SXDysuria Leyva Brigitte. [address] [place] [address], [address] [place] [address], . tel:[phone] [facility], [address] [place] [address], [address] [place] [address], tel:[phone] [facility] [address] No Information Mariella Gutierrez. [address] [place] [address], [address] [place] [address], [place]. tel:[phone] [facility], [address] [place] [address], [address] [place] [address], tel:[phone] [facility] [address] Nipple DischargePT, Negati ve Lilly Gutierrez. [address] [place], [place], [id number], . tel:[phone] Family History Family Member Diagnosis Age At Onset No Information Immunizations Vaccine Date Status Comments tetanus toxoid, adsorbed administered Note: d ates unknown ; Source: Source Unspecified Payers Payer name Insurance type Covered alliance party ID Authorization(s ) [facility] CI [id number] Social History Type Description Quantity Date Captured Comments Alcohol Use Details Unknown Caffeine Use Details Unknown Tobacco Use Status No Information Smoking Status Never smoker Sex Female Vital Signs Date / Time: Height Weight BMI Pulse Rate Blood Pressure Temperatu re Respiratory Rate Body Surface Area Head Circumference BMI percentile Pulse Ox In haled Ox 4:41 PM 64.00 in 151.00 lbs 25.92 kg/meter(2) 124/82 m m[Hg] Chief Complaint And Reason For Visit Most recent encounter only, dated '03/26/2021 15:00'. STI Treatment (chief complaint) Reason For Referral Reason For Referral No [...] 28.0-28.9, adult Assessments Type Assessment Date assessment Gonococcal infection, unspecified assessment Encntr screen for infections w sexl mode of transmiss assessment Contact w and exposure to infect w a sex l mode of transmiss assessment Human immunodeficiency virus [HIV] couns eling Goals Health Concern Goal Type Priority Status Date No Information Medical Equipment Description Device [place] Device Identifier Effective Christopher es (start - stop) Status No Information Mental Status Date Cognitive Assessment Orientation - Oriented to ti me, place, person, situation.Normal Orientation Health Concerns Observation Date No Information Concern Status Date No Information Physical Examination Exam Findings Details Neurological Normal Level of consciousne ss - Normal. Orientation - Normal. Psychiatric Normal Orientation - [place] ed to time, place, person & situation.
--- OUTSIDE RECORDS SUMMARY | 2021-04-30 18:26 | CCD | Continuity of Care Document ---
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 [address] [place] [address], [id number], [place]. tel:[phone] [facility], [address] [place] [address], [id number], [place] tel:[phone] [facility] [place] Other sex counselin gEncntr screen for infections w sexl mode of transmissEncounter for oth general cnsl and advice on contraceptionAcute vaginitis Lora Tabor. [address], [place], [id number], [place]. tel:[phone] Referring Provider: Sharona Paulino, [address] [place] [address], [id number]. tel:[phone] [facility], [address] [place] [address], [id number], [place] tel:[phone] [facility] [place] Other sex counselin gEncounter for oth general cnsl and advice on contraceptionEncntr screen for infections w sexl mode of transmissHigh risk heterosexual behavior Rayshawno Trupti Alfaro. [address] [place] [address], [id number], [place]. tel:[phone] Referring Provider: Airam Kc, [address] [place] [address], [id number]. tel:[phone] [facility], [address] [place] [address], [id number], [place] tel:[phone] [facility] [place] Herpesviral vulvovaginitis Ju Ye Amos. [address] [place] [address], [id number], [place]. tel:[phone] [facility], [address] [place] [address], [id number], [place] tel:[phone] [facility] [place] Gonococcal cervicit is, unspecifiedOther sex counseling De Alfaro. [address] [place], [place], [id number], [place]. tel:[phone] Referring Provider: Airam Kc, [address] [place], [place], [id number]. tel:[phone] [facility], [address] [place], [place], [id number], [place] tel:[phone] [facility] Herpesviral vulvovaginitis Ju Ankush Dash. [address] [place], [place], [id number], [place]. tel:[phone] [facility], [address] [place] [address], [id number], [place] tel:[phone] [facility] Frequency of mictur itionEncntr screen for infections w sexl mode of transmissEncounter for screening for human immunodeficiency virusHuman immunodeficiency virus [HIV] counselingOther sex counselingAcute vaginitisCandidiasis of vulva and vaginaOther specified noninflammatory disorders of vaginaUlceration of vulva Ankush Dash. [address] [place], [place], [id number], [place]. tel:[phone] Referring Provider: Mary Jane Lechuga, [address] [place], [place], [id number]. tel:[phone] [facility], [address] [place] [address], [id number], [place] tel:[phone] [facility] Body mass index (BM I) 28.0-28.9, adultHuman immunodeficiency virus [HIV] counselingEncntr screen for infections w sexl mode of transmissHigh risk heterosexual behaviorEncounter for oth screening for malignant neoplasm of breastEncntr for shore hand dredge or barge exam (general) (routine) w/o abn findings King Cheryl. [address] [place], [place], [id number]. tel:[phone] Referring Provider: Cheryl Lane, [address] [place], [place], [id number]. tel:[phone] [facility], [address] [place] [address], [id number], [place] tel:[phone] [facility] [place] Body mass index (BM I) 28.0-28.9, adultEncntr for shore hand dredge or barge exam (general) (routine) w/o abn findingsEncntr screen for infections w sexl mode of transmissHigh risk heterosexual behaviorEncounter for oth screening for malignant neoplasm of breast Lilly Gutierrez. [address] [place] [address], [id number], [place]. tel:[phone] Referring Provider: Brenda Carr, [address] [place] [address], [id number]. tel:[phone] [facility], [address] [place] [address], [id number], [place] tel:[phone] [facility] [place] DysuriaYeast-vulvov aginalGenital Itching Lilly Gutierrez. [address] [place], [place], [id number], [place]. tel:[phone] [facility], [address] [place] [address], [id number], [place] tel:[phone] [facility] [place] HIV CounselingSTI S creeningVaginal DischargeBVMenopause SXDysuria Leyva Brigitte. [address] [place] [address], [id number], [place]. tel:[phone] [facility], [address] [place] [address], [id number], [place] tel:[phone] [facility] [place] No Information Mariella Gutierrez. [address] [place] [address], [id number], [place]. tel:[phone] [facility], [address] [place] [address], [id number], [place] tel:[phone] [facility] [place] Nipple DischargePT, Negati ve Lilly Gutierrez. [address] [place], [place], [id number], [place]. tel:[phone] Family History Family Member Diagnosis Age At Onset No Information Immunizations Vaccine Date Status Comments tetanus toxoid, adsorbed administered Note: d ates unknown ; Source: Source Unspecified Payers Payer name Insurance type Covered republican ID Authorization(s ) [facility] CI [id number] Social History Type Description Quantity Date Captured [...] education, gu idance, and counseling completed Appointment Ly Gunn [facility] T[place] BOOKED Appointment Jaz Gunn RESTRICTIONS, COULD NOT LVM -3 Month Rescreen BOOKED History Of Present Illness Encounter Date [...] Date No Information Medical Equipment Description Device [place] Device Identifier Effective Christopher es (start - stop) Status No Information Mental Status Date Cognitive Assessment No Information Health Concerns Observation Date No Information Concern Status Date No Information Physical Examination Exam Findings Details No Information
--- OUTSIDE RECORDS SUMMARY | 2021-04-30 18:26 | CCD ---
Author Author [facility] Organization [facility] Address Unknown Phone Unavailable Care Team Providers Care Form Maker Name Role Phone Karen Tony MD Unavailable Unavailable Karen Tony MD Unavailable Unavailable Karen Tony MD Unavailable Unavailable Karen Tony MD Unavailable Unavailable Karen Tony MD Unavailable Unavailable Karen Tony MD Unavailable Unavailable Karen Tony MD Unavailable Unavailable Karen Tony MD Unavailable Unavailable Karen Tony MD Unavailable Unavailable Karen Tony MD Unavailable Unavailable Karen Tony MD Unavailable Unavailable Karen Tony MD Unavailable Unavailable Karen Tony MD Unavailable Unavailable Karen Tony MD Unavailable Unavailable Karen Tnoy MD Unavailable Unavailable Karen Tony MD Unavailable Unavailable Karen Tony MD Unavailable Unavailable Karen Tony MD Unavailable Unavailable Karen Tony MD Unavailable Unavailable Karen Tony MD Unavailable Unavailable Karen Tony MD Unavailable Unavailable Karen Tony MD Unavailable Unavailable Karen Tony MD Unavailable Unavailable Karen Tony MD Unavailable Unavailable Karen Tony MD Unavailable Unavailable Karen Tony MD Unavailable Unavailable Karen Tony MD Unavailable Unavailable Karen Tony MD Unavailable Unavailable Karen Tony MD Unavailable Unavailable Karen Tony MD Unavailable Unavailable Karen Tony MD Unavailable Unavailable Karen Tony MD Unavailable Unavailable Karen Tony MD Unavailable Unavailable Karen Tony MD Unavailable Unavailable Karen Tony MD Unavailable Unavailable Karen Tony MD Unavailable Unavailable Karen Tony MD Unavailable Unavailable Karen Tony MD Unavailable Unavailable Karen Tony MD Unavailable Unavailable Karen Tony MD Unavailable Unavailable Karen Tony MD Unavailable Unavailable Karen Tony MD Unavailable Unavailable Karen Tony MD Unavailable Unavailable Karen Tony MD Unavailable Unavailable Karen Tony MD Unavailable Unavailable Karen Tony MD Unavailable Unavailable Karen Tony MD Unavailable Unavailable Karen Tony MD Unavailable Unavailable Karen Tony MD Unavailable Unavailable Karen Tony MD Unavailable Unavailable Karen Tony MD Unavailable Unavailable Karen Tony MD Unavailable Unavailable Karen Tony MD Unavailable Unavailable Karen Tony MD Unavailable Unavailable Karen Tony MD Unavailable Unavailable Karen Tony MD Unavailable Unavailable Karen Tony MD Unavailable Unavailable Karen Tony MD Unavailable Unavailable Karen Tony MD Unavailable Unavailable Karen Tony MD Unavailable Unavailable Karen Tony MD Unavailable Unavailable Karen Tony MD Unavailable Unavailable Karen Tony MD Unavailable Unavailable Karen Tony MD Unavailable Unavailable Karen Tony MD Unavailable Unavailable Karen Tony MD Unavailable Unavailable Karen Tony MD Unavailable Unavailable Karen Tony MD Unavailable Unavailable Karen Tony MD Unavailable Unavailable Karen Tony MD Unavailable Unavailable Karen Tony MD Unavailable Unavailable Karen Tony MD Unavailable Unavailable Karen Tony MD Unavailable Unavailable Karen Tony MD Unavailable Unavailable Karen Tony MD Unavailable Unavailable Karen Tony MD Unavailable Unavailable Karen Tony MD Unavailable Unavailable Karen Tony MD Unavailable Unavailable Karen Tony MD Unavailable Unavailable Karen Tnoy MD Unavailable Unavailable Karen Tony MD Unavailable Unavailable Karen Tony MD Unavailable Unavailable Karen Tony MD Unavailable Unavailable Karen Tony MD Unavailable Unavailable Karen Tony MD Unavailable Unavailable Karen Tony MD Unavailable Unavailable Karen Tony MD Unavailable Unavailable Karen Tony MD Unavailable Unavailable Karen Tony MD Unavailable Unavailable Karen Tony MD Unavailable Unavailable Karen Tony MD Unavailable Unavailable Karen Tony MD Unavailable Unavailable Karen Tony MD Unavailable Unavailable Weleetka, J Sharona PA Unavailable Unavailable Weleetka, J Sharona PA Unavailable Unavailable Weleetka, J Sharona PA Unavailable Unavailable Weleetka, J Sharona PA Unavailable Unavailable [place]leetka, J Sharona PA Unavailable Unavailable Weleetka, J Sharona PA Unavailable Unavailable Weleetka, J Sharona PA Unavailable Unavailable [place]leetka, J Sharona PA Unavailable Unavailable Weleetka, J Sharona PA Unavailable Unavailable Weleetka, J Sharona PA Unavailable Unavailable Weleetka, J Sharona PA Unavailable Unavailable Weleetka, J Sharona PA Unavailable Unavailable Weleetka, J Sharona PA Unavailable Unavailable Weleetka, J Sharona PA Unavailable Unavailable Weleetka, J Sharona PA Unavailable Unavailable Weleetka, J Sharona PA Unavailable Unavailable Weleetka, J Sharona PA Unavailable Unavailable Weleetka, J Sharona PA Unavailable Unavailable Weleetka, J Sharona PA Unavailable Unavailable Weleetka, J Sharona PA Unavailable Unavailable Weleetka, J Sharona PA Unavailable Unavailable [place]leet[place], J Sharona PA Unavailable Unavailable Green SUBSTANCE ABUSE TECHNICIAN SUBSTANCE ABUSE TECHNICIAN, Mary Jane Unavailable Unavailable Green SUBSTANCE ABUSE TECHNICIAN SUBSTANCE ABUSE TECHNICIAN, Mary Jane Unavailable Unavailable Green SUBSTANCE ABUSE TECHNICIAN SUBSTANCE ABUSE TECHNICIAN, Mary Jane Unavailable Unavailable Green SUBSTANCE ABUSE TECHNICIAN SUBSTANCE ABUSE TECHNICIAN, Mary Jane Unavailable Unavailable Green SUBSTANCE ABUSE TECHNICIAN SUBSTANCE ABUSE TECHNICIAN, Mary Jane Unavailable Unavailable Carmen Belcher MD Unavailable Unavailable Carmen Belcher MD Unavailable Unavailable Carmen Belcher MD Unavailable Unavailable Carmen Belcher MD Unavailable Unavailable Carmen Belcher MD Unavailable Unavailable Carmen Belcher MD Unavailable Unavailable Carmen Belcher MD Unavailable Unavailable Carmen Belcher MD Unavailable Unavailable Carmen Belcher MD Unavailable Unavailable Carmen Belcher MD Unavailable Unavailable Carmen Belcher MD Unavailable Unavailable Carmen Belcher MD Unavailable Unavailable Carmen Belcher MD Unavailable Unavailable Carmen Belcher MD Unavailable Unavailable Carmen Belcher MD Unavailable Unavailable Carmen Belcher MD Unavailable Unavailable Carmen Belcher MD Unavailable Unavailable Carmen Belcher MD Unavailable Unavailable Carmen Belcher MD Unavailable Unavailable Carmen Belcher MD Unavailable Unavailable Carmen Belcher MD Unavailable Unavailable Carmen Belcher MD Unavailable Unavailable Carmen Belcher MD Unavailable Unavailable Carmen Belcher MD Unavailable Unavailable Ye, Carmen Amos MD Unavailable Unavailable Ye, Carmen Amos MD Unavailable Unavailable Ye, Carmen Amos MD Unavailable Unavailable Ye, Carmen Amos MD Unavailable Unavailable Ye, Carmen Amso MD Unavailable Unavailable Ye, Carmen Amos MD Unavailable Unavailable Ye, Carmen Amos MD Unavailable Unavailable Ye, Carmen Amos MD Unavailable Unavailable Ye, Carmen Amos MD Unavailable Unavailable Ye, Carmen Amos MD Unavailable Unavailable Ye, Carmen Amos MD Unavailable Unavailable Ye, Carmen Amos MD Unavailable Unavailable Ye, Carmen Amos MD Unavailable Unavailable Ye, Carmen Amos MD Unavailable Unavailable Ye, Carmen Amos MD Unavailable Unavailable Ye, Carmen Amos MD Unavailable Unavailable Ye, Carmen Amos MD Unavailable Unavailable Ye, Carmen Amos MD Unavailable Unavailable Ye, Carmen Amos MD Unavailable Unavailable Ye, Carmen Amos MD Unavailable Unavailable Ye, Carmen Amos MD Unavailable Unavailable Ye, Carmen Amos MD Unavailable Unavailable Ye, Carmen Amos MD Unavailable Unavailable Ey, Carmen Amos MD Unavailable Unavailable Ye, Carmen Amos MD Unavailable Unavailable Ye, Carmen Amos MD Unavailable Unavailable Ye, Carmen Amos MD Unavailable Unavailable Ye, A Bette RAMIREZ Unavailable Unavailable Ye, Carmen Amos MD Unavailable Unavailable Ye, Carmen Amos MD Unavailable Unavailable Ye, Carmen Amos MD Unavailable Unavailable Ye, Carmen Amos MD Unavailable Unavailable Ye, Carmen Amos MD Unavailable Unavailable Ye, Camren Amos MD Unavailable Unavailable Ye, Carmen Amos MD Unavailable Unavailable Ye, Carmen Amos MD Unavailable Unavailable Ye, Carmen Amos MD Unavailable Unavailable Ye, Carmen Amos MD Unavailable Unavailable Ye, Carmen Amos MD Unavailable Unavailable Ye, Carmen Amos MD Unavailable Unavailable Ye, Carmen Amos MD Unavailable Unavailable Ye, Carmen Amos MD Unavailable Unavailable Ye, Carmen Amos MD Unavailable Unavailable Ye, Carmen Amos MD Unavailable Unavailable Ye, Carmen Amos MD Unavailable Unavailable Ye, Carmen Amos MD Unavailable Unavailable Ye, Carmen Amos MD Unavailable Unavailable Ye, Carmen Amos MD Unavailable Unavailable Ye, Carmen Amos MD Unavailable Unavailable Ye, Carmen Amos MD Unavailable Unavailable Ye, Carmen Amos MD Unavailable Unavailable Ye, Carmen Amos MD Unavailable Unavailable Ye, Carmen Amos MD Unavailable Unavailable Ye, Carmen Amos MD Unavailable Unavailable Ye, Carmen Amos MD Unavailable Unavailable Ye, Carmen Amos MD Unavailable Unavailable Ye, Carmen Amos MD Unavailable Unavailable Ye, Carmen Amos MD Unavailable Unavailable Dwello PA PA, Airam Unavailable Unavailable Dwello PA PA, Airam Unavailable Unavailable Dwello PA PA, Airam Unavailable Unavailable Dwello PA PA, Airam Unavailable Unavailable Dwello PA PA, Airam Unavailable Unavailable Dwello PA PA, Airam Unavailable Unavailable Dwello PA PA, Airam Unavailable Unavailable Re-disclosure Warning The records that you are about to access may contain information from federally-assisted alcohol or drug abuse programs. If such information is present, then the following federally mandated warning applies: This information has been disclosed to you from records protected by federal confidentiality rules (42 CFR part 2). The federal rules prohibit you from making any further disclosure of this information unless further disclosure is expressly permitted by the written consent of the person to whom it pertains or as otherwise permitted by 42 CFR part 2. A general authorization for the release of medical or other information is NOT sufficient for this purpose. The Federal rules restrict any use of the information to criminally investigate or prosecute any alcohol or drug abuse patient.The records that you are about to access may contain highly sensitive health information, the redisclosure of which is protected by Article 27-F of the [facility] Public Health law. If you continue you may have access to information: Regarding HIV / AIDS; Provided by facilities licensed or operated by the [facility] Office of Mental Health; or Provided by the [facility] Office for People With Developmental Disabilities. If such information is present, then the following [facility] mandated warning applies: This information has been disclosed to you from confidential records which are protected by state law. State law prohibits you from making any further disclosure of this information without the specific written consent of the person to whom it pertains, or as otherwise permitted by law. Any unauthorized further disclosure in violation of state law may result in a fine or residential sentence or both. A general authorization for the release of medical or other information is NOT sufficient authorization for further disc losure. Family History Family Member Name Family Member Gender Family Member Status Date o f Status Description Data Source(s) Unknown Unknown Problem [facility] Unknown Unknown Problem MEDENT ([facility]) Encounters Encounter Providers Location Date Indications Data Source(s ) [place] [address] [facility] [address] 04/23/2021 12:00:00 AM EDT eCW1 ([facility]) [place] [address] [facility] [address] 04/23/2021 12:00:00 AM EDT eCW1 ([facility]) [place] [address] [facility] [address] 04/20/2021 12:00:00 AM EDT eCW1 ([facility]) Attender: Bette Garcia 12/2020 10:47:00 AM EDT - 04/11/2021 10:47:00 AM EDT [facility] ([facility]) Attender: Sharona Garcia 11/2020 03:20:00 PM EDT - 04/10/2021 03:20:00 PM EDT High risk heterosexual behaviorEncntr sc reen for infections w sexl mode of transmissOther sex counseling [facility] ([facility]) High risk heterosexual behavior Encntr screen for infections w sexl mode of transmiss Other sex counseling Unknown [address] [facility] [address] 04/09/2021 12:00:00 AM EDT eCW1 ([facility]) Attender: Bette Garcia 11:42:00 AM EDT - 03/29/2021 11:42:00 AM EDT [facility] ([facility]) Attender: Bette Garcia 09:05:00 AM EDT - 03/28/2021 09:05:00 AM EDT [facility] ([facility]) Attender: Sharona Garcia 03/08 09:57:00 AM EDT - 03/27/2021 09:57:00 AM EDT [facility] ([facility]) OFFICE VISIT, ESTOutpatient Attender: Mary Jane Lechuga NP SUBSTANCE ABUSE TECHNICIAN GYPSY Garcia 03/26/2021 03:00:00 PM EDT - 03/26/2021 03:00:00 PM EDT Other sex counselingHuman immunodeficiency virus [HIV] counselingContact w and exposure to infect w a sexl mode of transmissEncntr screen for infections w sexl mode of transmissGonococcal infection, unspecified NextGen ([facility]) Other sex counseling Human immunodeficiency virus [HIV] couns eling Contact w and exposure to infect w a sex l mode of transmiss Encntr screen for infections w sexl mode of transmiss Gonococcal infection, unspecified Attender: Sharona Garcia 03/07 05:12:00 PM EDT - 03/22/2021 05:12:00 PM EDT [facility] ([facility]) OFFICE VISIT, ESTOutpatient Attender: Sharona BETANCUR [facility] 03/20/2021 03:15:00 PM EDT - 03/20/2021 03:15:00 PM EDT Acute vaginitisEncounter for oth general cnsl and advice on contraceptionEncntr screen for infections w sexl mode of transmissOther sex counseling [facility] ([facility]) Acute vaginitis Encounter for oth general cnsl and advic e on contraception Encntr screen for infections w sexl mode of transmiss Other sex counseling Outpatient [address] [facility] [id number] 01/19/2021 12:00:00 AM EDT eCW1 ([facility]) Attender: Airam Garcia 06/2021 05:00:00 PM EDT - 01/15/2021 05:00:00 PM EDT High risk heterosexual behaviorEncntr sc reen for infections w sexl mode of transmissEncounter for oth general cnsl and advice on contraceptionOther sex counseling NextGen ([facility]) High risk heterosexual behavior Encntr screen for infections w sexl mode of transmiss Encounter for oth general cnsl and advic e on contraception Other sex counseling Attender: Bette Garcia 03/2021 03:04:00 PM EDT - 01/12/2021 03:04:00 PM EDT Herpesviral vulvovaginitis [facility] ([facility]) Herpesviral vulvovaginitis Attender: Mary Jane Lechuga NP SUBSTANCE ABUSE TECHNICIAN [place] 12/28/2020 07:17:00 AM EDT - 12/28/2020 07:17:00 AM EDT [facility] ([facility]) Attender: Mary Jane Lechuga NP SUBSTANCE ABUSE TECHNICIAN [facility] [place] 0 12/27/2020 03:39:00 PM EDT - 12/27/2020 03:39:00 PM EDT [facility] ([facility]) Attender: Bette Garcia 11:21:00 AM EDT - 12/26/2020 11:21:00 AM EDT [facility] ([facility]) OFFICE VISIT, ESTOutpatient Attender: Airam jacob 12/25/2020 05:30:00 PM EDT - 12/25/2020 05:30:00 PM EDT Other sex counselingGonococcal cervicitis, unspecified [facility] ([facility]) Other sex counseling Gonococcal cervicitis, unspecified Attender: Bette Garcia 08:40:00 AM EDT - 12/25/2020 08:40:00 AM EDT [facility] ([facility]) Attender: Mary Jane Lechuga NP SUBSTANCE ABUSE TECHNICIAN [facility] [place] 0 12/23/2020 08:11:00 AM EDT - 12/23/2020 08:11:00 AM EDT [facility] ([facility]) Attender: Mary Jane Lechuga NP SUBSTANCE ABUSE TECHNICIAN [facility] [place] 0 12/21/2020 07:10:00 AM EDT - 12/21/2020 07:10:00 AM EDT Herpesviral vulvovaginitis Next[facility] ([facility]) Herpesviral vulvovaginitis OutpatientOFFICE VISIT, NEW Attender: Mary Jane Lechuga NP SUBSTANCE ABUSE TECHNICIAN [facility] [place] 12/20/2020 04:15:00 PM EDT - 12/20/2020 04:15:00 PM EDT Ulceration of vulvaOther specified noninflammatory disorders of vaginaCandidiasis of vulva and vaginaAcute vaginitisOther sex counselingHuman immunodeficiency virus [HIV] counselingEncounter for screening for human immunodeficiency virusEncntr screen for infections w sexl mode of transmissFrequency of micturition NextGen ([facility]) Ulceration of vulva Other specified noninflammatory disorder s of vagina Candidiasis of vulva and vagina Acute vaginitis Other sex counseling Human immunodeficiency virus [HIV] couns eling Encounter for screening for human immuno deficiency virus Encntr screen for infections w sexl mode of transmiss Frequency of micturition Unknown [address] [facility] [address] 11/09/2020 12:00:00 AM EDT [facility]CW1 ([facility]) Unknown [address] [facility] [place] [address] 11/02/2020 12:00:00 AM EDT eCW1 ([facility]) Unknown [address] [facility] [place] [address] 11/02/2020 12:00:00 AM EDT eCW1 ([facility]) Out[place] [address] [facility] [place] [address] 10/31/2020 12:00:00 AM EDT eCW1 ([facility]) Unknown [address] [facility] [place] [address] 10/03/2020 12:00:00 AM EDT eCW1 ([facility]) Unknown [address] [facility] [place] [address] 09/21/2020 12:00:00 AM EDT eCW1 ([facility]) Out[place] [address] [facility] [place] [address] 09/18/2020 12:00:00 AM EDT eCW1 ([facility]) Unknown [address] [facility] [address] 09/15/2020 12:00:00 AM EST [facility] [place] [address] [facility] [place] [address] 09/14/2020 12:00:00 AM EST [facility]CW1 ([facility]) [place] [address] [facility] [address] 09/12/2020 12:00:00 AM EST eCW1 ([facility]) [place] [address] [facility] [address] 08/31/2020 12:00:00 AM EST eCW1 ([facility]) Unknown [address] [facility] [address] 08/31/2020 12:00:00 AM EST eCW1 ([facility]) Omid Tony MD: [address] [place] [phone], Ph. Attender: Omid Tony MD [place] - [facility] Medical 08/03/2020 12:00:00 AM EST MOISE ([facility]) Unknown [address] [facility] [address] 07/28/2020 12:00:00 AM EST eCW1 ([facility]) Unknown [address] [facility] [address] 07/25/2020 12:00:00 AM EST eCW1 ([facility]) Unknown [address] [facility] [address] 07/25/2020 12:00:00 AM EST eCW1 ([facility]) Unknown [address] [facility] [address] 07/19/2020 12:00:00 AM EST eCW1 ([facility]) Unknown [address] [facility] [address] 07/19/2020 12:00:00 AM EST eCW1 ([facility]) Outpatient [address] [facility] [address] 07/14/2020 12:00:00 AM EST eCW1 ([facility]) Outpatient [address] [facility] [place] [address] 05/05/2020 12:00:00 AM EDT eCW1 ([facility]) Unknown [address] [facility] [address] 05/01/2020 12:00:00 AM EDT eCW1 ([facility]) [place] [address] [facility] [address] 04/24/2020 12:00:00 AM EDT eCW1 ([facility]) Unknown [address] [facility] [address] 04/19/2020 12:00:00 AM EDT eCW1 ([facility]) Immunizations Vaccine Date Status Description Data Source(s) influenza, recombinant, quadrIvalent,injectable, prese rvative free 07/14/2020 10:26:00 AM EST completed eCW1 ([facility]) influenza, recombinant, quadrIvalent,injectable, prese rvative free 07/14/2020 10:26:00 AM EST completed eCW1 ([facility]) influenza, recombinant, quadrIvalent,injectable, prese rvative free 07/14/2020 10:26:00 AM EST completed eCW1 ([facility]) influenza, recombinant, quadrIvalent,injectable, prese rvative free 07/14/2020 10:26:00 AM EST completed eCW1 ([facility]) influenza, recombinant, quadrIvalent,injectable, prese rvative free 07/14/2020 10:26:00 AM EST completed eCW1 ([facility]) influenza, recombinant, quadrIvalent,injectable, prese rvative free 07/14/2020 10:26:00 AM EST completed eCW1 ([facility]) influenza, recombinant, quadrIvalent,injectable, prese rvative free 07/14/2020 10:26:00 AM EST completed eCW1 ([facility]) influenza, recombinant, quadrIvalent,injectable, prese rvative free 07/14/2020 10:26:00 AM EST completed eCW1 ([facility]) influenza, recombinant, quadrIvalent,injectable, prese rvative free 07/14/2020 10:26:00 AM EST completed eCW1 ([facility]) influenza, recombinant, quadrIvalent,injectable, prese rvative free 07/14/2020 10:26:00 AM EST completed eCW1 ([facility]) influenza, recombinant, quadrIvalent,injectable, prese rvative free 07/14/2020 10:26:00 AM EST completed eCW1 ([facility]) influenza, recombinant, quadrIvalent,injectable, prese rvative free 07/14/2020 10:26:00 AM EST completed eCW1 ([facility]) influenza, recombinant, quadrIvalent,injectable, prese rvative free 07/14/2020 10:26:00 AM EST completed eCW1 ([facility]) influenza, recombinant, quadrIvalent,injectable, prese rvative free 07/14/2020 10:26:00 AM EST completed eCW1 ([facility]) influenza, recombinant, quadrIvalent,injectable, prese rvative free 07/14/2020 10:26:00 AM EST completed eCW1 ([facility]) influenza, recombinant, quadrIvalent,injectable, prese rvative free 07/14/2020 10:26:00 AM EST completed eCW1 ([facility]) influenza, recombinant, quadrIvalent,injectable, prese rvative free 07/14/2020 10:26:00 AM EST completed eCW1 ([facility]) influenza, recombinant, quadrIvalent,injectable, prese rvative free 07/14/2020 10:26:00 AM EST completed eCW1 ([facility]) influenza, recombinant, quadrIvalent,injectable, prese rvative free 07/14/2020 10:26:00 AM EST completed eCW1 ([facility]) influenza, recombinant, quadrIvalent,injectable, prese rvative free 07/14/2020 10:26:00 AM EST completed eCW1 ([facility]) influenza, recombinant, quadrIvalent,injectable, prese rvative free 07/14/2020 10:26:00 AM EST completed eCW1 ([facility]) influenza, recombinant, quadrIvalent,injectable, prese rvative free 07/14/2020 10:26:00 AM EST completed eCW1 ([facility]) influenza, recombinant, quadrIvalent,injectable, prese rvative free 07/14/2020 10:26:00 AM EST completed eCW1 ([facility]) Medications Medication Brand Name Start Date Product Form Dose Route Admi nistrative Instructions Pharmacy Instructions Status Indications Reaction Description Data Source(s) 12 HR Guaifenesin 1200 MG Extended Release Oral Tablet guaiFENesin ER 1200 MG guaiFENesin ER 1200 MG 04/25/2021 12:00:00 AM EDT 1.0 {tablet_as_need ed} active guaiFENesin ER 1200 MG eCW1 ([facility]) Ceftriaxone 500 MG Injection ceftriaxone 500 mg soluti on for injection ceftriaxone 500 mg solution for injection 03/26/2021 12:00:00 AM EDT completed Inject 500 mg total once with 1ml of 1% lidocaine administer to pt in clinic [facility] Clindamycin 300 MG Oral Capsule clindamycin HCl 300 mg capsule clindamycin HCl 300 mg capsule 03/20/2021 12:00:00 AM EDT com pleted 1 tab po bid x 7 days (#14) [facility] [facility]) Acyclovir 400 MG Oral Tablet acyclovir 400 mg tablet acyclov ir 400 mg tablet 01/12/2021 12:00:00 AM EDT completed 1 po tid x 5d prn outbreak (#15) [facility] ([facility]) Ceftriaxone 500 MG Injection ceftriaxone 500 mg soluti on for injection ceftriaxone 500 mg solution for injection 12/25/2020 12:00:00 AM EDT completed Inject 500 mg total once with 1ml of 1% lidocaine administer to pt in clinic [facility] ([facility]) Acyclovir 400 MG Oral Tablet acyclovir 400 mg tablet acyclov ir 400 mg tablet 12/21/2020 12:00:00 AM EDT active 1 tab po tid x 10 days for initial outbreak (#30) [facility] Clindamycin 300 MG Oral Capsule clindamycin HCl 300 mg capsule clindamycin HCl 300 mg capsule 12/20/2020 12:00:00 AM EDT com pleted 1 tab po bid x 7 days (#14) [facility] Fluconazole 150 MG Oral Tablet fluconazole 150 mg tabl et fluconazole 150 mg tablet 12/20/2020 12:00:00 AM EDT completed 1 po x 1, then 1 po in 2-3 days [facility] ([facility] 500 mg 11/01/2020 12:00:00 AM EDT tablet 60 TAKE ONE TABLET BY MOUTH EVERY 12 HOURS WITH FOOD OR MILK NEEDED FOR PAIN TAKE ONE TABLET BY MOUTH EVERY 12 HOURS WITH FOOD OR MILK NEEDED FOR PAIN SOLD: 11/20/2020 [facility] 0.5 ML dulaglutide 1.5 MG/ML Auto-Injector [Trulicity] Trulicity 0.75 MG/0.5ML Trulicity 0.75 MG/0.5ML 09/14/2020 12:00:00 AM EST suspended Trulicity 0.75 MG/0.5ML eCW1 ([facility]) 0.5 ML dulaglutide 1.5 MG/ML Auto-Injector [Trulicity] Trulicity 0.75 MG/0.5ML Trulicity 0.75 MG/0.5ML 09/14/2020 12:00:00 AM EST suspended Trulicity 0.75 MG/0.5ML eCW1 ([facility]) 0.5 ML dulaglutide 1.5 MG/ML Auto-Injector [Trulicity] Trulicity 0.75 MG/0.5ML Trulicity 0.75 MG/0.5ML 09/14/2020 12:00:00 AM EST active Trulicity 0.75 MG/0.5ML eCW1 ([facility]) 0.5 ML dulaglutide 1.5 MG/ML Auto-Injector [Trulicity] Trulicity 0.75 MG/0.5ML Trulicity 0.75 MG/0.5ML 09/14/2020 12:00:00 AM EST active Trulicity 0.75 MG/0.5ML eCW1 ([facility]) 0.5 ML dulaglutide 1.5 MG/ML Auto-Injector [Trulicity] Trulicity 0.75 MG/0.5ML Trulicity 0.75 MG/0.5ML 09/14/2020 12:00:00 AM EST suspended Trulicity 0.75 MG/0.5ML eCW1 ([facility]) 0.5 ML dulaglutide 1.5 MG/ML Auto-Injector [Trulicity] Trulicity 0.75 MG/0.5ML Trulicity 0.75 MG/0.5ML 09/14/2020 12:00:00 AM EST suspended Trulicity 0.75 MG/0.5ML eCW1 ([facility]) 0.5 ML dulaglutide 1.5 MG/ML Auto-Injector [Trulicity] Trulicity 0.75 MG/0.5ML Trulicity 0.75 MG/0.5ML 09/14/2020 12:00:00 AM EST active Trulicity 0.75 MG/0.5ML eCW1 ([facility]) 0.5 ML dulaglutide 1.5 MG/ML Auto-Injector [Trulicity] Trulicity 0.75 MG/0.5ML Trulicity 0.75 MG/0.5ML 09/14/2020 12:00:00 AM EST active Trulicity 0.75 MG/0.5ML eCW1 ([facility]) 0.5 ML dulaglutide 1.5 MG/ML Auto-Injector [Trulicity] Trulicity 0.75 MG/0.5ML Trulicity 0.75 MG/0.5ML 09/14/2020 12:00:00 AM EST active Trulicity 0.75 MG/0.5ML eCW1 ([facility]) 0.5 ML dulaglutide 1.5 MG/ML Auto-Injector [Trulicity] Trulicity 0.75 MG/0.5ML Trulicity 0.75 MG/0.5ML 09/14/2020 12:00:00 AM EST suspended Trulicity 0.75 MG/0.5ML eCW1 ([facility]) 0.5 ML dulaglutide 1.5 MG/ML Auto-Injector [Trulicity] Trulicity 0.75 MG/0.5ML Trulicity 0.75 MG/0.5ML 09/14/2020 12:00:00 AM EST active Trulicity 0.75 MG/0.5ML eCW1 ([facility]) 0.5 ML dulaglutide 1.5 MG/ML Auto-Injector [Trulicity] Trulicity 0.75 MG/0.5ML Trulicity 0.75 MG/0.5ML 09/14/2020 12:00:00 AM EST suspended Trulicity 0.75 MG/0.5ML eCW1 ([facility]) Loratadine 10 MG Oral Tablet [Claritin] Claritin 10 MG Yiesl tin 10 MG 08/31/2020 12:00:00 AM EST 1.0 {tablet} suspended Claritin 10 MG eCW1 ([facility]) Loratadine 10 MG Oral Tablet [Claritin] Claritin 10 MG Yisel tin 10 MG 08/31/2020 12:00:00 AM EST 1.0 {tablet} suspended Claritin 10 MG eCW1 ([facility]) Loratadine 10 MG Oral Tablet [Claritin] Claritin 10 MG Yisel tin 10 MG 08/31/2020 12:00:00 AM EST 1.0 {tablet} active C laritin 10 MG eCW1 ([facility]) Loratadine 10 MG Oral Tablet [Claritin] Claritin 10 MG Yisel tin 10 MG 08/31/2020 12:00:00 AM EST 1.0 {tablet} suspended Claritin 10 MG eCW1 ([facility]) Loratadine 10 MG Oral Tablet [Claritin] Claritin 10 MG Yisel tin 10 MG 08/31/2020 12:00:00 AM EST 1.0 {tablet} suspended Claritin 10 MG eCW1 ([facility]) Loratadine 10 MG Oral Tablet [Claritin] Claritin 10 MG Yisel tin 10 MG 08/31/2020 12:00:00 AM EST 1.0 {tablet} suspended Claritin 10 MG eCW1 ([facility]) Loratadine 10 MG Oral Tablet [Claritin] Claritin 10 MG Yisel tin 10 MG 08/31/2020 12:00:00 AM EST 1.0 {tablet} suspended Claritin 10 MG eCW1 ([facility]) Loratadine 10 MG Oral Tablet [Claritin] Claritin 10 MG Yisel tin 10 MG 08/31/2020 12:00:00 AM EST 1.0 {tablet} suspended Claritin 10 MG eCW1 ([facility]) Loratadine 10 MG Oral Tablet [Claritin] Claritin 10 MG Yisel tin 10 MG 08/31/2020 12:00:00 AM EST 1.0 {tablet} active C laritin 10 MG eCW1 ([facility]) 10 mg 08/31/2020 12:00:00 AM EST tablet 30 TAKE ONE TABLET BY MOUTH EVERY DAY TAKE ONE TABLET BY MOUTH EVERY DAY SOLD: 09/02/2020 [facility] Loratadine 10 MG Oral Tablet [Claritin] Claritin 10 MG Yisel tin 10 MG 08/31/2020 12:00:00 AM EST 1.0 {tablet} suspended Claritin 10 MG eCW1 ([facility]) Loratadine 10 MG Oral Tablet [Claritin] Claritin 10 MG Yisel tin 10 MG 08/31/2020 12:00:00 AM EST 1.0 {tablet} suspended Claritin 10 MG eCW1 ([facility]) Loratadine 10 MG Oral Tablet [Claritin] Claritin 10 MG Yisel tin 10 MG 08/31/2020 12:00:00 AM EST 1.0 {tablet} suspended Claritin 10 MG eCW1 ([facility]) Loratadine 10 MG Oral Tablet [Claritin] Claritin 10 MG Yisel tin 10 MG 08/31/2020 12:00:00 AM EST 1.0 {tablet} suspended Claritin 10 MG eCW1 ([facility]) Loratadine 10 MG Oral Tablet [Claritin] Claritin 10 MG Yisel tin 10 MG 08/31/2020 12:00:00 AM EST 1.0 {tablet} active C laritin 10 MG eCW1 ([facility]) Isopropyl Alcohol 0.7 ML/ML Medicated Pad Alcohol Prep 70 % Alcohol Prep 70 % 07/20/2020 12:00:00 AM EST active Alcohol Prep 70 % eCW1 ([facility]) Isopropyl Alcohol 0.7 ML/ML Medicated Pad Alcohol Prep 70 % Alcohol Prep 70 % 07/20/2020 12:00:00 AM EST active Alcohol Prep 70 % eCW1 ([facility]) Isopropyl Alcohol 0.7 ML/ML Medicated Pad Alcohol Prep 70 % Alcohol Prep 70 % 07/20/2020 12:00:00 AM EST active Alcohol Prep 70 % eCW1 ([facility]) Isopropyl Alcohol 0.7 ML/ML Medicated Pad Alcohol Prep 70 % Alcohol Prep 70 % 07/20/2020 12:00:00 AM EST active Alcohol Prep 70 % eCW1 ([facility]) Isopropyl Alcohol 0.7 ML/ML Medicated Pad Alcohol Prep 70 % Alcohol Prep 70 % 07/20/2020 12:00:00 AM EST active Alcohol Prep 70 % eCW1 ([facility]) Isopropyl Alcohol 0.7 ML/ML Medicated Pad Alcohol Prep 70 % Alcohol Prep 70 % 07/20/2020 12:00:00 AM EST active Alcohol Prep 70 % eCW1 ([facility]) Isopropyl Alcohol 0.7 ML/ML Medicated Pad Alcohol Prep 70 % Alcohol Prep 70 % 07/20/2020 12:00:00 AM EST active Alcohol Prep 70 % eCW1 ([facility]) Isopropyl Alcohol 0.7 ML/ML Medicated Pad Alcohol Prep 70 % Alcohol Prep 70 % 07/20/2020 12:00:00 AM EST active Alcohol Prep 70 % eCW1 ([facility]) Isopropyl Alcohol 0.7 ML/ML Medicated Pad Alcohol Prep 70 % Alcohol Prep 70 % 07/20/2020 12:00:00 AM EST active Alcohol Prep 70 % eCW1 ([facility]) Isopropyl Alcohol 0.7 ML/ML Medicated Pad Alcohol Prep 70 % Alcohol Prep 70 % 07/20/2020 12:00:00 AM EST active Alcohol Prep 70 % eCW1 ([facility]) Isopropyl Alcohol 0.7 ML/ML Medicated Pad Alcohol Prep 70 % Alcohol Prep 70 % 07/20/2020 12:00:00 AM EST active Alcohol Prep 70 % eCW1 ([facility]) Isopropyl Alcohol 0.7 ML/ML Medicated Pad Alcohol Prep 70 % Alcohol Prep 70 % 07/20/2020 12:00:00 AM EST active Alcohol Prep 70 % eCW1 ([facility]) Isopropyl Alcohol 0.7 ML/ML Medicated Pad Alcohol Prep 70 % Alcohol Prep 70 % 07/20/2020 12:00:00 AM EST active Alcohol Prep 70 % eCW1 ([facility]) Isopropyl Alcohol 0.7 ML/ML Medicated Pad Alcohol Prep 70 % Alcohol Prep 70 % 07/20/2020 12:00:00 AM EST active Alcohol Prep 70 % eCW1 ([facility]) Isopropyl Alcohol 0.7 ML/ML Medicated Pad Alcohol Prep 70 % Alcohol Prep 70 % 07/20/2020 12:00:00 AM EST active Alcohol Prep 70 % eCW1 ([facility]) Isopropyl Alcohol 0.7 ML/ML Medicated Pad Alcohol Prep 70 % Alcohol Prep 70 % 07/20/2020 12:00:00 AM EST active Alcohol Prep 70 % eCW1 ([facility]) Isopropyl Alcohol 0.7 ML/ML Medicated Pad Alcohol Prep 70 % Alcohol Prep 70 % 07/20/2020 12:00:00 AM EST active Alcohol Prep 70 % eCW1 ([facility]) Isopropyl Alcohol 0.7 ML/ML Medicated Pad Alcohol Prep 70 % Alcohol Prep 70 % 07/20/2020 12:00:00 AM EST active Alcohol Prep 70 % eCW1 ([facility]) Isopropyl Alcohol 0.7 ML/ML Medicated Pad Alcohol Prep 70 % Alcohol Prep 70 % 07/20/2020 12:00:00 AM EST active Alcohol Prep 70 % eCW1 ([facility]) Isopropyl Alcohol 0.7 ML/ML Medicated Pad Alcohol Prep 70 % Alcohol Prep 70 % 07/20/2020 12:00:00 AM EST active Alcohol Prep 70 % eCW1 ([facility]) OneTouch FinePoint Lancets - OneTouch FinePoint Lancets - 12:00:00 AM EST active OneTouch FinePoin t Lancets - eCW1 ([facility]) OneTouch Ultra II Test Strips UNK 07/19/2020 12:00:00 AM EST active OneTouch Ultra II Test Strips eCW1 ([facility]) OneTouch Ultra 2 w/Device OneTouch Ultra 2 w/Device 07/19/2020 1 2:00:00 AM EST active OneTouch Ultra 2 w/Device eCW1 ([facility]) OneTouch Ultra 2 w/Device OneTouch Ultra 2 w/Device 07/19/2020 1 2:00:00 AM EST active OneTouch Ultra 2 w/Device eCW1 ([facility]) OneTouch Ultra 2 w/Device OneTouch Ultra 2 w/Device 07/19/2020 1 2:00:00 AM EST active OneTouch Ultra 2 w/Device eCW1 ([facility]) OneTouch Ultra II Test Strips UNK 07/19/2020 12:00:00 AM EST active OneTouch Ultra II Test Strips eCW1 ([facility]) OneTouch Ultra II Test Strips UNK 07/19/2020 12:00:00 AM EST active OneTouch Ultra II Test Strips eCW1 ([facility]) OneTouch Ultra 2 w/Device OneTouch Ultra 2 w/Device 07/19/2020 1 2:00:00 AM EST active OneTouch Ultra 2 w/Device eCW1 ([facility]) OneTouch Ultra 2 w/Device OneTouch Ultra 2 w/Device 07/19/2020 1 2:00:00 AM EST active OneTouch Ultra 2 w/Device eCW1 ([facility]) OneTouch FinePoint Lancets - OneTouch FinePoint Lancets - 12:00:00 AM EST active OneTouch FinePoin t Lancets - eCW1 ([facility]) OneTouch FinePoint Lancets - OneTouch FinePoint Lancets - 12:00:00 AM EST active OneTouch FinePoin t Lancets - eCW1 ([facility]) OneTouch FinePoint Lancets - OneTouch FinePoint Lancets - 12:00:00 AM EST active OneTouch FinePoin t Lancets - eCW1 ([facility]) OneTouch FinePoint Lancets - OneTouch FinePoint Lancets - 12:00:00 AM EST active OneTouch FinePoin t Lancets - eCW1 ([facility]) OneTouch Ultra II Test Strips UNK 07/19/2020 12:00:00 AM EST active OneTouch Ultra II Test Strips eCW1 ([facility]) OneTouch FinePoint Lancets - OneTouch FinePoint Lancets - 12:00:00 AM EST active OneTouch FinePoin t Lancets - eCW1 ([facility]) OneTouch Ultra 2 w/Device OneTouch Ultra 2 w/Device 07/19/2020 1 2:00:00 AM EST active OneTouch Ultra 2 w/Device eCW1 ([facility]) OneTouch FinePoint Lancets - OneTouch FinePoint Lancets - 12:00:00 AM EST active OneTouch FinePoin t Lancets - eCW1 ([facility]) OneTouch FinePoint Lancets - OneTouch FinePoint Lancets - 12:00:00 AM EST active OneTouch FinePoin t Lancets - eCW1 ([facility]) OneTouch FinePoint Lancets - OneTouch FinePoint Lancets - 12:00:00 AM EST active OneTouch FinePoin t Lancets - eCW1 ([facility]) OneTouch Ultra II Test Strips UNK 07/19/2020 12:00:00 AM EST active OneTouch Ultra II Test Strips eCW1 ([facility]) OneTouch Ultra 2 w/Device OneTouch Ultra 2 w/Device 07/19/2020 1 2:00:00 AM EST active OneTouch Ultra 2 w/Device eCW1 ([facility]) OneTouch FinePoint Lancets - OneTouch FinePoint Lancets - 12:00:00 AM EST active OneTouch FinePoin t Lancets - eCW1 ([facility]) OneTouch Ultra 2 w/Device OneTouch Ultra 2 w/Device 07/19/2020 1 2:00:00 AM EST active OneTouch Ultra 2 w/Device eCW1 ([facility]) OneTouch Ultra II Test Strips UNK 07/19/2020 12:00:00 AM EST active OneTouch Ultra II Test Strips eCW1 ([facility]) OneTouch Ultra 2 w/Device OneTouch Ultra 2 w/Device 07/19/2020 1 2:00:00 AM EST active OneTouch Ultra 2 w/Device eCW1 ([facility]) OneTouch FinePoint Lancets - OneTouch FinePoint Lancets - 12:00:00 AM EST active OneTouch FinePoin t Lancets - eCW1 ([facility]) OneTouch Ultra II Test Strips UNK 07/19/2020 12:00:00 AM EST active OneTouch Ultra II Test Strips eCW1 ([facility]) OneTouch Ultra II Test Strips UNK 07/19/2020 12:00:00 AM EST active OneTouch Ultra II Test Strips eCW1 ([facility]) OneTouch Ultra 2 w/Device OneTouch Ultra 2 w/Device 07/19/2020 1 2:00:00 AM EST active OneTouch Ultra 2 w/Device eCW1 ([facility]) OneTouch Ultra 2 w/Device OneTouch Ultra 2 w/Device 07/19/2020 1 2:00:00 AM EST active OneTouch Ultra 2 w/Device eCW1 ([facility]) OneTouch Ultra 2 w/Device OneTouch Ultra 2 w/Device 07/19/2020 1 2:00:00 AM EST active OneTouch Ultra 2 w/Device eCW1 ([facility]) OneTouch Ultra 2 w/Device OneTouch Ultra 2 w/Device 07/19/2020 1 2:00:00 AM EST active OneTouch Ultra 2 w/Device eCW1 ([facility]) OneTouch Ultra II Test Strips UNK 07/19/2020 12:00:00 AM EST active OneTouch Ultra II Test Strips eCW1 ([facility]) OneTouch Ultra 2 w/Device OneTouch Ultra 2 w/Device 07/19/2020 1 2:00:00 AM EST active OneTouch Ultra 2 w/Device eCW1 ([facility]) OneTouch Ultra 2 w/Device OneTouch Ultra 2 w/Device 07/19/2020 1 2:00:00 AM EST active OneTouch Ultra 2 w/Device eCW1 ([facility]) OneTouch FinePoint Lancets - OneTouch FinePoint Lancets - 12:00:00 AM EST active OneTouch FinePoin t Lancets - eCW1 ([facility]) OneTouch FinePoint Lancets - OneTouch FinePoint Lancets - 12:00:00 AM EST active OneTouch FinePoin t Lancets - eCW1 ([facility]) OneTouch FinePoint Lancets - OneTouch FinePoint Lancets - 12:00:00 AM EST active OneTouch FinePoin t Lancets - eCW1 ([facility]) OneTouch Ultra II Test Strips UNK 07/19/2020 12:00:00 AM EST active OneTouch Ultra II Test Strips eCW1 ([facility]) OneTouch FinePoint Lancets - OneTouch FinePoint Lancets - 12:00:00 AM EST active OneTouch FinePoin t Lancets - eCW1 ([facility]) OneTouch Ultra II Test Strips UNK 07/19/2020 12:00:00 AM EST active OneTouch Ultra II Test Strips eCW1 ([facility]) OneTouch Ultra 2 w/Device OneTouch Ultra 2 w/Device 07/19/2020 1 2:00:00 AM EST active OneTouch Ultra 2 w/Device eCW1 ([facility]) OneTouch FinePoint Lancets - OneTouch FinePoint Lancets - 12:00:00 AM EST active OneTouch FinePoin t Lancets - eCW1 ([facility]) OneTouch Ultra II Test Strips UNK 07/19/2020 12:00:00 AM EST active OneTouch Ultra II Test Strips eCW1 ([facility]) OneTouch Ultra II Test Strips UNK 07/19/2020 12:00:00 AM EST active OneTouch Ultra II Test Strips eCW1 ([facility]) OneTouch Ultra 2 w/Device OneTouch Ultra 2 w/Device 07/19/2020 1 2:00:00 AM EST active OneTouch Ultra 2 w/Device eCW1 ([facility]) OneTouch FinePoint Lancets - OneTouch FinePoint Lancets - 12:00:00 AM EST active OneTouch FinePoin t Lancets - eCW1 ([facility]) OneTouch Ultra II Test Strips UNK 07/19/2020 12:00:00 AM EST active OneTouch Ultra II Test Strips eCW1 ([facility]) OneTouch Ultra 2 w/Device OneTouch Ultra 2 w/Device 07/19/2020 1 2:00:00 AM EST active OneTouch Ultra 2 w/Device eCW1 ([facility]) OneTouch Ultra 2 w/Device OneTouch Ultra 2 w/Device 07/19/2020 1 2:00:00 AM EST active OneTouch Ultra 2 w/Device eCW1 ([facility]) OneTouch Ultra II Test Strips UNK 07/19/2020 12:00:00 AM EST active OneTouch Ultra II Test Strips eCW1 ([facility]) OneTouch Ultra II Test Strips UNK 07/19/2020 12:00:00 AM EST active OneTouch Ultra II Test Strips eCW1 ([facility]) OneTouch FinePoint Lancets - OneTouch FinePoint Lancets - 12:00:00 AM EST active OneTouch FinePoin t Lancets - eCW1 ([facility]) OneTouch Ultra II Test Strips UNK 07/19/2020 12:00:00 AM EST active OneTouch Ultra II Test Strips eCW1 ([facility]) OneTouch Ultra 2 w/Device OneTouch Ultra 2 w/Device 07/19/2020 1 2:00:00 AM EST active OneTouch Ultra 2 w/Device eCW1 ([facility]) OneTouch Ultra II Test Strips UNK 07/19/2020 12:00:00 AM EST active OneTouch Ultra II Test Strips eCW1 ([facility]) OneTouch FinePoint Lancets - OneTouch FinePoint Lancets - 12:00:00 AM EST active OneTouch FinePoin t Lancets - eCW1 ([facility]) OneTouch FinePoint Lancets - OneTouch FinePoint Lancets - 12:00:00 AM EST active OneTouch FinePoin t Lancets - eCW1 ([facility]) OneTouch Ultra II Test Strips UNK 07/19/2020 12:00:00 AM EST active OneTouch Ultra II Test Strips eCW1 ([facility]) OneTouch Ultra II Test Strips UNK 07/19/2020 12:00:00 AM EST active OneTouch Ultra II Test Strips eCW1 ([facility]) Plantar Fasciitis Support - Plantar Fasciitis Support - 02/2021 12:00:00 AM EST active Plantar Fasciitis Support - eCW1 ([facility]) Plantar Fasciitis Support - Plantar Fasciitis Support - 02/2021 12:00:00 AM EST active Plantar Fasciitis Support - eCW1 ([facility]) Plantar Fasciitis Support - Plantar Fasciitis Support - 02/2021 12:00:00 AM EST active Plantar Fasciitis Support - eCW1 ([facility]) Plantar Fasciitis Support - Plantar Fasciitis Support - 02/2021 12:00:00 AM EST active Plantar Fasciitis Support - eCW1 ([facility]) Plantar Fasciitis Support - Plantar Fasciitis Support - 02/2021 12:00:00 AM EST active Plantar Fasciitis Support - eCW1 ([facility]) Plantar Fasciitis Support - Plantar Fasciitis Support - 02/2021 12:00:00 AM EST active Plantar Fasciitis Support - eCW1 ([facility]) Plantar Fasciitis Support - Plantar Fasciitis Support - 02/2021 12:00:00 AM EST active Plantar Fasciitis Support - eCW1 ([facility]) Plantar Fasciitis Support - Plantar Fasciitis Support - 02/2021 12:00:00 AM EST active Plantar Fasciitis Support - eCW1 ([facility]) Plantar Fasciitis Support - Plantar Fasciitis Support - 02/2021 12:00:00 AM EST active Plantar Fasciitis Support - eCW1 ([facility]) Metformin hydrochloride 500 MG Oral Tablet Metformin H Cl 500 MG Metformin HCl 500 MG 07/14/2020 12:00:00 AM EST active Metformin HCl 500 MG eCW1 ([facility]) Plantar Fasciitis Support - Plantar Fasciitis Support - 02/2021 12:00:00 AM EST active Plantar Fasciitis Support - eCW1 ([facility]) Plantar Fasciitis Support - Plantar Fasciitis Support - 02/2021 12:00:00 AM EST active Plantar Fasciitis Support - eCW1 ([facility]) Plantar Fasciitis Support - Plantar Fasciitis Support - 02/2021 12:00:00 AM EST active Plantar Fasciitis Support - eCW1 ([facility]) Metformin hydrochloride 500 MG Oral Tablet Metformin H Cl 500 MG Metformin HCl 500 MG 07/14/2020 12:00:00 AM EST active Metformin HCl 500 MG eCW1 ([facility]) Plantar Fasciitis Support - Plantar Fasciitis Support - 02/2021 12:00:00 AM EST active Plantar Fasciitis Support - eCW1 ([facility]) Metformin hydrochloride 500 MG Oral Tablet Metformin H Cl 500 MG Metformin HCl 500 MG 07/14/2020 12:00:00 AM EST active Metformin HCl 500 MG eCW1 ([facility]) Plantar Fasciitis Support - Plantar Fasciitis Support - 02/2021 12:00:00 AM EST active Plantar Fasciitis Support - eCW1 ([facility]) Plantar Fasciitis Support - Plantar Fasciitis Support - 02/2021 12:00:00 AM EST active Plantar Fasciitis Support - eCW1 ([facility]) Metformin hydrochloride 500 MG Oral Tablet Metformin H Cl 500 MG Metformin HCl 500 MG 07/14/2020 12:00:00 AM EST active Metformin HCl 500 MG eCW1 ([facility]) Plantar Fasciitis Support - Plantar Fasciitis Support - 02/2021 12:00:00 AM EST active Plantar Fasciitis Support - eCW1 ([facility]) Plantar Fasciitis Support - Plantar Fasciitis Support - 02/2021 12:00:00 AM EST active Plantar Fasciitis Support - eCW1 ([facility]) Metformin hydrochloride 500 MG Oral Tablet Metformin H Cl 500 MG Metformin HCl 500 MG 07/14/2020 12:00:00 AM EST active Metformin HCl 500 MG eCW1 ([facility]) Metformin hydrochloride 500 MG Oral Tablet Metformin H Cl 500 MG Metformin HCl 500 MG 07/14/2020 12:00:00 AM EST active Metformin HCl 500 MG eCW1 ([facility]) Metformin hydrochloride 500 MG Oral Tablet Metformin H Cl 500 MG Metformin HCl 500 MG 07/14/2020 12:00:00 AM EST active Metformin HCl 500 MG eCW1 ([facility]) Plantar Fasciitis Support - Plantar Fasciitis Support - 02/2021 12:00:00 AM EST active Plantar Fasciitis Support - eCW1 ([facility]) Plantar Fasciitis Support - Plantar Fasciitis Support - 02/2021 12:00:00 AM EST active Plantar Fasciitis Support - eCW1 ([facility]) Plantar Fasciitis Support - Plantar Fasciitis Support - 02/2021 12:00:00 AM EST active Plantar Fasciitis Support - eCW1 ([facility]) Plantar Fasciitis Support - Plantar Fasciitis Support - 02/2021 12:00:00 AM EST active Plantar Fasciitis Support - eCW1 ([facility]) Plantar Fasciitis Support - Plantar Fasciitis Support - 02/2021 12:00:00 AM EST active Plantar Fasciitis Support - eCW1 ([facility]) Metformin hydrochloride 500 MG Oral Tablet Metformin H Cl 500 MG Metformin HCl 500 MG 07/14/2020 12:00:00 AM EST active Metformin HCl 500 MG eCW1 ([facility]) Plantar Fasciitis Support - Plantar Fasciitis Support - 02/2021 12:00:00 AM EST active Plantar Fasciitis Support - eCW1 ([facility]) pantoprazole 40 MG Delayed Release Oral Tablet PANTOPRAZOLE SODIUM 04/20/2020 12:00:00 AM EDT tablet,delayed release (DR/EC) 30 T RIA ONE TABLET BY MOUTH EVERY DAY TAKE ONE TABLET BY MOUTH EVERY DAY SOLD: 09/06/2020 [facility] atorvastatin 40 MG Oral Tablet ATORVASTATIN CALCIUM 11/01/2019 1 2:00:00 AM EDT tablet 30 TAKE ONE TABLET BY MOUTH EVERY D AY TAKE ONE TABLET BY MOUTH EVERY DAY SOLD: 09/06/2020 [facility] Pravastatin Sodium 10 MG Oral Tablet PRAVASTATIN SODIU M (unknown strength) PRAVASTATIN SODIUM (unknown strength) comple krystal NextGen ([facility]) VITAMIN E (unknown strength) vitamin E comple krystal NextGen ([facility]) Ascorbic Acid 500 MG Oral Tablet Vitamin C 500 mg tabl et Vitamin C 500 mg tablet completed NextGen ([facility] Insurance Providers Payer name Policy type / Coverage type Policy ID Covered green party ID Covered green party's relationship to lopez Policy Lopez Plan Information Medicaid P [id number] S [id number] [facility] Care [facility] P [id number] S [id number] Medicaid S [id number] S [id number] [facility] [id number] SP [id number] [facility] [id number] SP [id number] [facility]-Medicaid [id number] ANS-Medicaid [id number] ANSI-Medicaid [id number] ANSI-Medicaid [id number] ANSI-Medicaid [id number] ANSI-Medicaid [id number] ANSI-Medicaid [id number] [facility] [id number] ANSI-Medicaid [id number] ANSI-Medicaid [id number] ANSI-Medicaid [id number] ANSI-Medicaid [id number] ANSI-Medicaid [id number] ANSI-Medicaid [id number] ANSI-Medicaid [id number] ANSI-Medicaid [id number] ANSI-Medicaid [id number] ANSI-Medicaid [id number] ANSI-Medicaid [id number] ANSI-Medicaid [id number] ANSI-Medicaid [id number] ANSI-Medicaid [id number] ANSI-Medicaid [id number] ANSI-Medicaid [id number] ANSI-Medicaid [id number] [facility] ([facility] [id number] Self [id number] [facility] Health Maintenance Organization ([facility] [id number] Self [id number] [facility] [id number] SP [id number] [facility] ([facility] [id number] Self [id number] [facility] Maintenance Organization ([facility] [id number] Self [id number] [facility] [id number] SP [id number] [facility] O [id number] S [id number] [facility] ([facility]) [id number] Self [facility] MCDO [id number] SP [id number] [facility] M[facility]O [id number] SP [id number] MEDICAID [id number] SP [id number] [facility] MCDHMO [id number] SP [id number] [facility] MCDO [id number] SP [id number] [facility]) O [id number] S [id number] [facility] [id number] SP [id number] Problems, Conditions, and Diagnoses Code Display Name Description Problem Type Effective Dates Data Source(s) 05154160 Gonorrhea Gonorrhea Problem 03/20/2021 12:00:00 AM ED T NextGen ([facility]) 45742495 Gonorrhea Gonorrhea Problem 12/20/2020 12:00:00 AM ED T NextGen ([facility]) 07451639 Herpes simplex Herpes simplex Problem 12/20/2020 12:00: 00 AM EDT NextGen ([facility]) G56.01 [id number] Carpal tunnel syndrome of right wrist Problem 10/31/2020 12:00:00 AM EDT eCW1 ([facility]) E66.09 [id number] Other obesity due to excess calories Prob ino 09/18/2020 12:00:00 AM EDT eCW1 ([facility]) K21.9 Gastroesophageal reflux disease without esophagitis Gastroesophageal reflux disease without esophagitis Problem 09/14/2020 12:00:00 AM ES T eC1 ([facility]) 545487182 Finding of esophagus Finding of Esophagus Problem 04/20/2020 05:17:57 PM EDT [place] ([facility]) 829930272 SNOMED CT Concept SNOMED CT Concept Problem 04/20 05:17:57 PM EDT [place] ([facility]) 300706795 Asthma Asthma Problem 04/20/2020 05:17:57 PM ED T [place] ([facility]) 27283384 Hypertensive disorder Hypertensive Disorder Problem 04/20/2020 05:17:57 PM EDT [place] ([facility]) 02349385 Depressive disorder Depressive Disorder Problem 1 05:17:57 PM EDT [place] ([facility]) Surgeries/Procedures Procedure Description Date Indications Data Source(s) 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 Other 04/10/2021 12:00:00 AM EDT - 2020 12:00:00 AM EDT NextGen ([facility]) Exclude From Giovanna For Title X 04/10/20 12:00:00 AM EDT - 04/10/2021 12:00:00 AM EDT NextGen ([facility]) N.GONORRHOEAE, Pharyngeal 04/10/2021 12: 00:00 AM EDT - 04/10/2021 12:00:00 AM EDT NextGen ([facility]) CHYLMD TRACH, Pharyngeal 04/10/2021 12:0 0:00 AM EDT - 04/10/2021 12:00:00 AM EDT [facility] ([facility]) NURSE ONLY INJ. RN/DEPUTY ATTORNEY GENERAL Only 03/26/2021 1 2:00:00 AM EDT - 03/26/2021 12:00:00 AM EDT NextGen ([facility]) 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 Preconception 03/26/2021 12 :00:00 AM EDT - 03/26/2021 12:00:00 AM EDT NextGen ([facility]) 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 STI / H 03/26/2021 12:00:00 AM EDT - 03/26/2021 12:00:00 AM EDT NextGen ([facility]) 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 Contraceptive 03/26/2021 12 :00:00 AM EDT - 03/26/2021 12:00:00 AM EDT NextGen ([facility]) CVR Med.Svc. Height/Weight 03/26/2021 12 :00:00 AM EDT - 03/26/2021 12:00:00 AM EDT NextGen ([facility]) CVR Blood Pressure 03/26/2021 12:00:00 AM EDT - 2020 12:00:00 AM EDT NextGen ([facility]) CVR Med.Svc. Other 03/26/2021 12:00:00 AM EDT - 2020 12:00:00 AM EDT NextGen ([facility]) HCS Without Test 03/26/2021 12:00:00 AM EDT - 03/26/20 21 12:00:00 AM EDT NextGen ([facility]) Ceftriaxone sodium injection (Rocephin) 03/26/2021 12:00:00 AM EDT - 03/26/2021 12:00:00 AM EDT NextGen ([facility]) OFFICE VISIT, EST 03/26/2021 12:00:00 AM EDT - 021 12:00:00 AM EDT NextGen ([facility]) CVR Med.Svc. Height/Weight 03/20/2021 12 :00:00 AM EDT - 03/20/2021 12:00:00 AM EDT NextGen ([facility]) CVR Blood Pressure 03/20/2021 12:00:00 AM EDT - 2020 12:00:00 AM EDT NextGen ([facility]) OFFICE VISIT, EST 03/20/2021 12:00:00 AM EDT - 03/20/2 021 12:00:00 AM EDT NextGen ([facility]) ASSAY OF BODY FLUID ACIDITY 03/20/2021 1 2:00:00 AM EDT - 03/20/2021 12:00:00 AM EDT NextGen ([facility]) SMEAR, WET MOUNT, SALINE/INK 03/20/2021 12:00:00 AM EDT - 03/20/2021 12:00:00 AM EDT NextGen ([facility]) N.GONORRHOEAE, URINE 03/20/2021 12:00:00 AM EDT - 03/20/2021 12:00:00 AM EDT NextGen ([facility]) CHYLMD TRACH, URINE 03/20/2021 12:00:00 AM EDT - 03/20 12:00:00 AM EDT NextGen ([facility]) N.GONORRHOEAE, Pharyngeal 03/20/2021 12: 00:00 AM EDT - 03/20/2021 12:00:00 AM EDT NextGen ([facility]) CHYLMD TRACH, Pharyngeal 03/20/2021 12:0 0:00 AM EDT - 03/20/2021 12:00:00 AM EDT NextGen ([facility]) 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 Other 01/15/2021 12:00:00 AM EDT - 2020 12:00:00 AM EDT NextGen ([facility]) 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 Contraceptive 01/15/2021 12 :00:00 AM EDT - 01/15/2021 12:00:00 AM EDT NextGen ([facility]) CVR Med.Svc. Height/Weight 01/15/2021 12 :00:00 AM EDT - 01/15/2021 12:00:00 AM EDT NextGen ([facility]) CVR Blood Pressure 01/15/2021 12:00:00 AM EDT - 2020 12:00:00 AM EDT NextGen ([facility]) Injection Or Lab Only Visit Est 01/16/20 12:00:00 AM EDT - 01/15/2021 12:00:00 AM EDT NextGen ([facility]) N.GONORRHOEAE, Pharyngeal 01/15/2021 12: 00:00 AM EDT - 01/15/2021 12:00:00 AM EDT NextGen ([facility]) CHYLMD TRACH, Pharyngeal 01/15/2021 12:0 0:00 AM EDT - 01/15/2021 12:00:00 AM EDT NextGen ([facility]) NURSE ONLY INJ. RN/DEPUTY ATTORNEY GENERAL Only 12/25/2020 1 2:00:00 AM EDT - 12/25/2020 12:00:00 AM EDT NextGen ([facility]) Ceftriaxone sodium injection (Rocephin) 12/25/2020 12:00:00 AM EDT - 12/25/2020 12:00:00 AM EDT NextGen ([facility]) 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 STI / H 12/25/2020 12:00:00 AM EDT - 12/25/2020 12:00:00 AM EDT NextGen ([facility]) 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 Other 12/25/2020 12:00:00 AM EDT - 2020 12:00:00 AM EDT NextGen ([facility]) 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 Contraceptive 12/25/2020 12 :00:00 AM EDT - 12/25/2020 12:00:00 AM EDT NextGen ([facility]) CVR Med.Svc. Height/Weight 12/25/2020 12 :00:00 AM EDT - 12/25/2020 12:00:00 AM EDT NextGen ([facility]) CVR Blood Pressure 12/25/2020 12:00:00 AM EDT - 2020 12:00:00 AM EDT NextGen ([facility]) CVR Blood Pressure 12/25/2020 12:00:00 AM EDT - 2020 12:00:00 AM EDT NextGen ([facility]) OFFICE VISIT, EST 12/25/2020 12:00:00 AM EDT - 021 12:00:00 AM EDT NextGen ([facility]) SMEAR, WET MOUNT, SALINE/INK 12/20/2020 12:00:00 AM EDT - 12/20/2020 12:00:00 AM EDT NextGen ([facility]) ASSAY OF BODY FLUID ACIDITY 12/20/2020 1 2:00:00 AM EDT - 12/20/2020 12:00:00 AM EDT NextGen ([facility]) 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 STI / H 12/20/2020 12:00:00 AM EDT - 12/20/2020 12:00:00 AM EDT NextGen ([facility]) 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 Other 12/20/2020 12:00:00 AM EDT - 2020 12:00:00 AM EDT NextGen ([facility]) 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 Contraceptive 12/20/2020 12 :00:00 AM EDT - 12/20/2020 12:00:00 AM EDT NextGen ([facility]) CVR Med.Svc. Height/Weight 12/20/2020 12 :00:00 AM EDT - 12/20/2020 12:00:00 AM EDT NextGen ([facility]) CVR Blood Pressure 12/20/2020 12:00:00 AM EDT - 2020 12:00:00 AM EDT NextGen ([facility]) URINE CULTURE/COLONY COUNT 12/20/2020 12 :00:00 AM EDT - 12/20/2020 12:00:00 AM EDT NextGen ([facility]) N.GONORRHOEAE, Pharyngeal 12/20/2020 12: 00:00 AM EDT - 12/20/2020 12:00:00 AM EDT NextGen ([facility]) CHYLMD TRACH, Pharyngeal 12/20/2020 12:0 0:00 AM EDT - 12/20/2020 12:00:00 AM EDT [facility] ([facility]) HEPATITIS C, RNA, AMP PROBE 12/20/2020 1 2:00:00 AM EDT - 12/20/2020 12:00:00 AM EDT NextGen ([facility]) SYPHILLIS BLOOD SEROLOGY, QUALITATIVE 12:00:00 AM EDT - 12/20/2020 12:00:00 AM EDT Next[facility] ([facility]) HTLV/HIV SERUM TEST 12/20/2020 12:00:00 AM EDT - 12/20 12:00:00 AM EDT NextGen ([facility]) SHANITA VIRUS ISOLATE, HSV 12/20/2020 12:0 0:00 AM EDT - 12/20/2020 12:00:00 AM EDT [facility] ([facility]) N.GONORRHOEAE, SWAB 12/20/2020 12:00:00 AM EDT - 12/20 12:00:00 AM EDT [facility] ([facility]) CHYLMD TRACH, SWAB 12/20/2020 12:00:00 AM EDT - 2020 12:00:00 AM EDT [facility] ([facility]) OFFICE VISIT, NEW 12/20/2020 12:00:00 AM EDT - 2 021 12:00:00 AM EDT [facility] ([facility]) ROUTINE VENIPUNCTURE 12/20/2020 12:00:00 AM EDT - 12/20/2020 12:00:00 AM EDT Next[facility] ([facility]) URINALYSIS NONAUTO W/O SCOPE 12/20/2020 12:00:00 AM EDT - 12/20/2020 12:00:00 AM EDT Next[facility] ([facility]) ECG ROUTINE ECG W/LEAST 12 LDS W/I&R 08/31/2020 12:00: 00 AM EST eCW1 ([facility]) Immunization: Flublok Quadrivalent (18 years & older) 0.5mL IM (Influenza) 07/14/2020 12:00:00 AM EST eCW1 ([facility]) Results ID Date Data Source [id number] 04/20/2021 04:16:00 PM EDT [facility] Name Value Range Interpretation Code Description Data Margret rce(s) Supporting Document(s) SARS COVID ANTIGEN POSITIVE [facility] This lab was ordered by [facility] paz nd reported by [facility]. ID Date Data Source NADEEM COVID AG (Point of Care) 04/20/2021 12:00:00 AM EDT eC W1 ([facility]) Name Value Range Interpretation Code Description Data Margret rce(s) Supporting Document(s) POSITIVE NEGATIVE [place] COVID ANTIGEN eCW1 ([facility]) ID Date Data Source [id number] 03/20/2021 03:51:20 PM EDT [facility] ([facility]) Name Value Range Interpretation Code Description Data Margret rce(s) Supporting Document(s) pH: 6.0. Vaginal pH [facility] ([facility]) ID Date Data Source [id number] 03/20/2021 03:51:09 PM EDT NextGen ([facility]) Name Value Range Interpretation Code Description Data Margret rce(s) Supporting Document(s) Hyphae/Gladys: no; Budding yeast: no; Trich: no; Clue cells: yes (>=20%); WBCs: yes (few); Amine/Whiff test: positive Abnormal ( applies to non-numeric results) Wet Prep NextGen ([facility]) ID Date Data Source Basic Metabolic Profile (BMP) 01/19/2021 12:00:00 AM EDT eCW 1 ([facility]) Name Value Range Interpretation Code Description Data Margret rce(s) Supporting Document(s) 82 70-100 GLUCOSE, FASTING eCW1 ([facility]) 17 7-18 BLOOD UREA NITROGEN eCW1 ([facility]) > 60.0 >45 GLOMERULAR FILTRATION RATE eCW 1 ([facility]) 0.99 0.55-1.30 CREATININE FOR GFR eCW1 ([facility]) 28 21-32 CARBON DIOXIDE LEVEL eCW1 ([facility]) 3.8 3.5-5.1 POTASSIUM SERUM eCW1 ([facility]) 110 98-107 CHLORIDE LEVEL eCW1 ([facility]) 142 136-145 SODIUM LEVEL eCW1 ([facility]) 9.2 8.8-10.2 CALCIUM LEVEL eCW1 ([facility]) ID Date Data Source [id number] 01/19/2021 12:00:00 AM EDT eCW1 ([facility]) Name Value Range Interpretation Code Description Data Margret rce(s) Supporting Document(s) Hemoglobin A1c/Hemoglobin.total in Blood 6.0 HEMOGLOBIN A1c eCW1 ([facility]) ID Date Data Source [id number] 12/20/2020 06:35:22 PM EDT NextGen ([facility]) Name Value Range Interpretation Code Description Data Margret rce(s) Supporting Document(s) Hyphae/Gladys: no; Budding yeast: no; Trich: no; Clue cells: yes (>=20%); WBCs: yes (few); Amine/Whiff test: positive; pH: 5.0 A bnormal (applies to non- numeric results) Wet Prep NextGen ([facility]) ID Date Data Source [id number] 12/20/2020 06:35:01 PM EDT Next[facility] ([facility]) Name Value Range Interpretation Code Description Data Margret rce(s) Supporting Document(s) pH: 5.0. Vaginal pH [facility] ([facility]) ID Date Data Source [id number] 12/20/2020 04:33:26 PM EDT NextGen ([facility]) Name Value Range Interpretation Code Description Data Margret rce(s) Supporting Document(s) Color: yellow; Glucose: nega tive; Blood: trace; pH: 6.0; Protein: 1+; Nitrite: negative; Leukocytes: trace Abnormal (applies to non-numeri c results) Urine Dipstick [facility] ([facility]) ID Date Data Source Comprehensive Metabolic Profile (CMP) 10/31/2020 12:00:00 AM EDT eCW1 ([facility]) Name Value Range Interpretation Code Description Data Margret rce(s) Supporting Document(s) 93 70-100 GLUCOSE, FASTING eCW1 ([facility]) 13 7-18 BLOOD UREA NITROGEN eCW1 ([facility]) 0.74 0.55-1.30 CREATININE FOR GFR eCW1 ([facility]) > 60.0 >45 GLOMERULAR FILTRATION RATE eCW 1 ([facility]) 110 98-107 CHLORIDE LEVEL eCW1 ([facility]) 4.5 3.5-5.1 POTASSIUM SERUM eCW1 ([facility]) 144 136-145 SODIUM LEVEL eCW1 ([facility]) 30 21-32 CARBON DIOXIDE LEVEL eCW1 ([facility]) 14 7-37 AST/SGOT eCW1 ([facility]) 9.8 8.8-10.2 CALCIUM LEVEL eCW1 ([facility]) 0.7 0.2-1.0 BILIRUBIN,TOTAL eCW1 ([facility]) 33 12-78 ALT/SGPT eCW1 ([facility]) 63 45-117 ALKALINE PHOSPHATASE eCW1 ([facility]) 3.8 3.2-5.2 ALBUMIN eCW1 ([facility]) 7.1 6.4-8.2 TOTAL PROTEIN eCW1 ([facility]) 1.2 1.2-2.2 ALBUMIN/GLOBULIN RATIO eCW1 ([facility]) ID Date Data Source [id number] 09/19/2020 12:00:00 AM EDT [facility] Name Value Range Interpretation Code Description Data Margret rce(s) Supporting Document(s) [facility] Rapid [facility] This lab was ordered by [place] and re ported by [facility]. ID Date Data Source WW DIGITAL / MADALYN BILATERAL MAMMO SCREENING (Ultraso und if indicated) 09/18/2020 12:00:00 AM EDT eCW1 ([facility]) Name Value Range Interpretation Code Description Data Margret rce(s) Supporting Document(s) [facility] DIGITAL / MADALYN BILAT ERAL MAMMO SCREENING (Ultrasound if indicated) eCW1 ([facility]) ID Date Data Source TROPONIN I 08/31/2020 12:00:00 AM EST eCW1 ([facility]) Name Value Range Interpretation Code Description Data Margret rce(s) Supporting Document(s) < 0.02 < 0.10 eCW1 ([facility]) ID Date Data Source C REACTIVE PROTEIN QUANTITATIV (At [facility]) 08/31/2020 12:00 :00 AM EST eCW1 ([facility]) Name Value Range Interpretation Code Description Data Margret rce(s) Supporting Document(s) 0.36 0.00-0.30 eCW1 ([facility]) ID Date Data Source FREE T4 & TSH PANEL 08/31/2020 12:00:00 AM EST eCW1 ([facility] [facility]) Name Value Range Interpretation Code Description Data Margret rce(s) Supporting Document(s) 0.73 0.76-1.46 eCW1 ([facility]) 0.563 0.358-3.740 eCW1 ([facility]) ID Date Data Source ERYTHROCYTE SEDIMENTATION RATE 08/31/2020 12:00:00 AM EST eC W1 ([facility]) Name Value Range Interpretation Code Description Data Margret rce(s) Supporting Document(s) 16 0-30 eCW1 ([facility]) ID Date Data Source CARDIAC INJURY PROFILE 08/31/2020 12:00:00 AM EST eCW1 ([facility]) Name Value Range Interpretation Code Description Data Margret rce(s) Supporting Document(s) 129 26-192 eCW1 ([facility]) 0.78 < OR =4 eCW1 ([facility]) < 1.0 <3.6 eCW1 ([facility]) ID Date Data Source [id number] 08/03/2020 11:23:00 AM EST MOISE ([facility]) Name Value Range Interpretation Code Description Data Margret rce(s) Supporting Document(s) sars-cov-2 negative negative Sars-cov-2 MOISE ([facility]) Procedure Social History Code Duration Value Status Description Data Source(s ) Smoking 04/23/2021 12:00:00 AM EDT Former Smoker completed Former Smoker eCW1 ([facility]) Smoking 04/23/2021 12:00:00 AM EDT Former Smoker completed Former Smoker eCW1 ([facility]) Smoking 04/23/2021 12:00:00 AM EDT Former Smoker completed Former Smoker eCW1 ([facility]) Smoking 04/11/2021 12:00:00 AM EDT Never smoker completed Never s moker NextGen ([facility]) 03/20/2021 12:00:00 AM EDT Current non-smoker completed C urrent non-smoker NextGen ([facility]) Smoking 01/19/2021 12:00:00 AM EDT Former Smoker completed Former Smoker eCW1 ([facility]) Smoking 01/19/2021 12:00:00 AM EDT Former Smoker completed Former Smoker eCW1 ([facility]) Smoking 10/31/2020 12:00:00 AM EDT Former Smoker completed Former Smoker eCW1 ([facility]) Smoking 10/31/2020 12:00:00 AM EDT Former Smoker completed Former Smoker eCW1 ([facility]) Smoking 10/31/2020 12:00:00 AM EDT Former Smoker completed Former Smoker eCW1 ([facility]) Smoking 10/31/2020 12:00:00 AM EDT Former Smoker completed Former Smoker eCW1 ([facility]) Smoking 09/18/2020 12:00:00 AM EDT Former Smoker completed Former Smoker eCW1 ([facility]) Smoking 09/18/2020 12:00:00 AM EDT Former Smoker completed Former Smoker eCW1 ([facility]) Smoking 09/18/2020 12:00:00 AM EDT Former Smoker completed Former Smoker eCW1 ([facility]) Smoking 09/18/2020 12:00:00 AM EDT Former Smoker completed Former Smoker eCW1 ([facility]) Smoking 09/18/2020 12:00:00 AM EDT Former Smoker completed Former Smoker eCW1 ([facility]) Smoking 09/14/2020 12:00:00 AM EST Former Smoker completed Former Smoker eCW1 ([facility]) Smoking 08/31/2020 12:00:00 AM EST Former Smoker completed Former Smoker eCW1 ([facility]) Smoking 08/31/2020 12:00:00 AM EST Former Smoker completed Former Smoker eCW1 ([facility]) Smoking 07/14/2020 12:00:00 AM EST Former Smoker completed Former Smoker eCW1 ([facility]) Smoking 07/14/2020 12:00:00 AM EST Former Smoker completed Former Smoker eCW1 ([facility]) Smoking 07/14/2020 12:00:00 AM EST Former Smoker completed Former Smoker eCW1 ([facility]) Smoking 07/14/2020 12:00:00 AM EST Former Smoker completed Former Smoker eCW1 ([facility]) Smoking 07/14/2020 12:00:00 AM EST Former Smoker completed Former Smoker eCW1 ([facility]) Smoking 07/14/2020 12:00:00 AM EST Former Smoker completed Former Smoker eCW1 ([facility]) Smoking 05/05/2020 12:00:00 AM EDT Former Smoker completed Former Smoker eCW1 ([facility]) Smoking 04/24/2020 12:00:00 AM EDT Former Smoker completed Former Smoker eCW1 ([facility]) Smoking 04/24/2020 12:00:00 AM EDT Former Smoker completed Former Smoker eCW1 ([facility]) Smoking 04/24/2020 12:00:00 AM EDT Former Smoker completed Former Smoker eCW1 ([facility]) Vital Signs ID Date Data Source UNK Name Value Range Interpretation Code Description Data Source(s) Body weight 151.4 [lb_av] 151.4 [lb_av] eCW1 ([facility]) Body weight 68.67 kg 68.67 kg W1 ([facility]) Body height 64 [in_i] 64 [in_i] eCW1 ([facility]) Body mass index (BMI) [Ratio] 25.98 kg/m2 25.98 kg/m2 W1 ([facility]) Heart rate 99 /min 99 /min eCW1 ([facility]) Respiratory rate 18 /min 18 /min eCW1 ([facility]) Body temperature 97.9 [degF] 97.9 [degF] eCW1 ( [facility]) Systolic blood pressure 124 mm[Hg] 124 mm[Hg] e CW1 ([facility]) Diastolic blood pressure 70 mm[Hg] 70 mm[Hg] eCW1 ([facility]) Body height 162.56 cm 162.56 cm NextGen ([facility] Body weight 68.492 kg 68.492 kg NextGen ([facility]) Systolic blood pressure 124 mm[Hg] 124 mm[Hg] N extGen ([facility]) Diastolic blood pressure 82 mm[Hg] 82 mm[Hg] NextGen ([facility]) Body mass index (BMI) [Ratio] 25.92 kg/m2 Overweight 25.92 kg/m2 NextGen ([facility]) Body height 162.56 cm 162.56 cm NextGen ([facility]) Body weight 68.946 kg 68.946 kg NextGen ([facility]) Systolic blood pressure 118 mm[Hg] 118 mm[Hg] N extGen ([facility]) Diastolic blood pressure 79 mm[Hg] 79 mm[Hg] NextGen ([facility]) Body mass index (BMI) [Ratio] 26.09 kg/m2 Overweight 26.09 kg/m2 NextGen ([facility]) Diastolic blood pressure 70 mm[Hg] 70 mm[Hg] W1 ([facility]) Body weight 161 [lb_av] 161 [lb_av] eCW1 ([facility]) Body height 64 [in_i] 64 [in_i] eCW1 ([facility]) Body mass index (BMI) [Ratio] 27.63 kg/m2 27.63 kg/m2 W1 ([facility]) Heart rate 99 /min 99 /min W1 ([facility]) Respiratory rate 18 /min 18 /min W1 ([facility]) Body temperature 98.1 [degF] 98.1 [degF] eCW1 ( [facility]) Systolic blood pressure 122 mm[Hg] 122 mm[Hg] e CW1 ([facility]) Body height 162.56 cm 162.56 cm NextGen ([facility]) Body weight 72.938 kg 72.938 kg NextGen ([facility]) Systolic blood pressure 120 mm[Hg] 120 mm[Hg] N extGen ([facility]) Diastolic blood pressure 72 mm[Hg] 72 mm[Hg] NextGen ([facility]) Body mass index (BMI) [Ratio] 27.60 kg/m2 Overweight 27.60 kg/m2 NextGen ([facility]) Systolic blood pressure 120 mm[Hg] 120 mm[Hg] N extGen ([facility]) Body height 162.56 cm 162.56 cm NextGen ([facility]) Body weight 73.482 kg 73.482 kg NextGen ([facility]) Diastolic blood pressure 76 mm[Hg] 76 mm[Hg] NextGen ([facility]) Body mass index (BMI) [Ratio] 27.81 kg/m2 Overweight 27.81 kg/m2 NextGen ([facility]) Body weight 172 [lb_av] 172 [lb_av] eCW1 ([facility]) Body height 64 [in_i] 64 [in_i] eCW1 ([facility]) Body mass index (BMI) [Ratio] 29.52 kg/m2 29.52 kg/m2 W1 ([facility]) Heart rate 91 /min 91 /min eCW1 ([facility]) Respiratory rate 18 /min 18 /min eCW1 ([facility]) Body temperature 97.1 [degF] 97.1 [degF] eCW1 ( [facility]) Systolic blood pressure 118 mm[Hg] 118 mm[Hg] e CW1 ([facility]) Diastolic blood pressure 76 mm[Hg] 76 mm[Hg] eCW1 ([facility]) Body weight 177 [lb_av] 177 [lb_av] eCW1 ([facility]) Body weight 80.29 kg 80.29 kg eCW1 ([facility]) Body height 64 [in_i] 64 [in_i] eCW1 ([facility]) Body mass index (BMI) [Ratio] 30.38 kg/m2 30.38 kg/m2 W1 ([facility]) Systolic blood pressure 120 mm[Hg] 120 mm[Hg] e CW1 ([facility]) Diastolic blood pressure 74 mm[Hg] 74 mm[Hg] eCW1 ([facility]) Body weight 178 [lb_av] 178 [lb_av] eCW1 ([facility]) Body height 64 [in_i] 64 [in_i] eCW1 ([facility]) Body mass index (BMI) [Ratio] 30.55 kg/m2 30.55 kg/m2 eCW1 ([facility]) Heart rate 102 /min 102 /min eCW1 ([facility]) Respiratory rate 18 /min 18 /min eCW1 ([facility]) Body temperature 98.5 [degF] 98.5 [degF] eCW1 ( [facility]) Systolic blood pressure 116 mm[Hg] 116 mm[Hg] e CW1 ([facility]) Diastolic blood pressure 74 mm[Hg] 74 mm[Hg] eCW1 ([facility]) Body weight 177 [lb_av] 177 [lb_av] eCW1 ([facility]) Body height 64 [in_i] 64 [in_i] eCW1 ([facility]) Body mass index (BMI) [Ratio] 30.38 kg/m2 30.38 kg/m2 eCW1 ([facility]) Heart rate 88 /min 88 /min eCW1 ([facility]) Respiratory rate 18 /min 18 /min eCW1 ([facility]) Body temperature 97.4 [degF] 97.4 [degF] eCW1 ( [facility]) Systolic blood pressure 118 mm[Hg] 118 mm[Hg] e CW1 ([facility]) Diastolic blood pressure 80 mm[Hg] 80 mm[Hg] eCW1 ([facility]) Body weight 185 [lb_av] 185 [lb_av] eCW1 ([facility]) Body height 64 [in_i] 64 [in_i] eCW1 ([facility]) Body mass index (BMI) [Ratio] 31.75 kg/m2 31.75 kg/m2 eCW1 ([facility]) Heart rate 80 /min 80 /min eCW1 ([facility]) Respiratory rate 17 /min 17 /min eCW1 ([facility]) Body temperature 97.8 [degF] 97.8 [degF] eCW1 ( [facility]) Systolic blood pressure 112 mm[Hg] 112 mm[Hg] e CW1 ([facility]) Diastolic blood pressure 80 mm[Hg] 80 mm[Hg] eCW1 ([facility]) Body weight 189.2 [lb_av] 189.2 [lb_av] eCW1 ([facility]) Body height 64 [in_i] 64 [in_i] eCW1 ([facility]) Body mass index (BMI) [Ratio] 32.47 kg/m2 32.47 kg/m2 eCW1 ([facility]) Heart rate 96 /min 96 /min eCW1 ([facility]) Respiratory rate 18 /min 18 /min eCW1 ([facility]) Body temperature 97.5 [degF] 97.5 [degF] eCW1 ( [facility]) Systolic blood pressure 126 mm[Hg] 126 mm[Hg] e CW1 ([facility]) Diastolic blood pressure 88 mm[Hg] 88 mm[Hg] eCW1 ([facility]) Body weight 187 [lb_av] 187 [lb_av] eCW1 ([facility]) Body height 64 [in_i] 64 [in_i] eCW1 ([facility]) Body mass index (BMI) [Ratio] 32.09 kg/m2 32.09 kg/m2 eCW1 ([facility]) Systolic blood pressure 124 mm[Hg] 124 mm[Hg] e CW1 ([facility]) Diastolic blood pressure 76 mm[Hg] 76 mm[Hg] eCW1 ([facility]) Patient Treatment Plan of Care Planned Activity Planned Date Details Description Data Source (s) 12 HR Guaifenesin 1200 MG Extended Release Oral Tablet 04/25/2021 12:00:00 AM EDT eCW1 ([facility]) Ceftriaxone 500 MG Injection 03/26/2021 12:00:00 AM EDT NextGen ([facility]) Clindamycin 300 MG Oral Capsule 03/20/2021 12:00:00 AM EDT NextGen ([facility]) Acyclovir 400 MG Oral Tablet 01/12/2021 12:00:00 AM EDT NextGen ([facility]) Ceftriaxone 500 MG Injection 12/25/2020 12:00:00 AM EDT NextGen ([facility]) Acyclovir 400 MG Oral Tablet 12/21/2020 12:00:00 AM EDT NextGen ([facility]) Fluconazole 150 MG Oral Tablet 12/20/2020 12:00:00 AM EDT NextGen ([facility]) Clindamycin 300 MG Oral Capsule 12/20/2020 12:00:00 AM EDT NextGen ([facility]) 0.5 ML dulaglutide 1.5 MG/ML Auto-Injector [Trulicity] 09/14/2020 12:00:00 AM EST eCW1 ([facility]) Loratadine 10 MG Oral Tablet [Claritin] 08/31/2020 12:00:00 AM EST eCW1 ([facility]) Loratadine 10 MG Oral Tablet [Claritin] 08/31/2020 12:00:00 AM EST eCW1 ([facility]) Isopropyl Alcohol 0.7 ML/ML Medicated Pad 07/20/2020 12:00:00 AM ES T eCW1 ([facility]) Isopropyl Alcohol 0.7 ML/ML Medicated Pad 07/20/2020 12:00:00 AM ES T eCW1 ([facility]) Isopropyl Alcohol 0.7 ML/ML Medicated Pad 07/20/2020 12:00:00 AM ES T eCW1 ([facility]) Isopropyl Alcohol 0.7 ML/ML Medicated Pad 07/20/2020 12:00:00 AM ES T eCW1 ([facility]) Isopropyl Alcohol 0.7 ML/ML Medicated Pad 07/20/2020 12:00:00 AM ES T eCW1 ([facility]) Isopropyl Alcohol 0.7 ML/ML Medicated Pad 07/20/2020 12:00:00 AM ES T eCW1 ([facility]) OneTouch Ultra 2 w/Device 07/19/2020 12:00:00 AM EST eCW1 ([facility]) OneTouch Ultra II Test Strips 07/19/2020 12:00:00 AM EST eCW1 ([facility]) OneTouch FinePoint Lancets - 07/19/2020 12:00:00 AM EST eCW1 ([facility]) OneTouch Ultra 2 w/Device 07/19/2020 12:00:00 AM EST eCW1 ([facility]) OneTouch Ultra II Test Strips 07/19/2020 12:00:00 AM EST eCW1 ([facility]) OneTouch FinePoint Lancets - 07/19/2020 12:00:00 AM EST eCW1 ([facility]) OneTouch Ultra 2 w/Device 07/19/2020 12:00:00 AM EST eCW1 ([facility]) OneTouch Ultra II Test Strips 07/19/2020 12:00:00 AM EST eCW1 ([facility]) OneTouch FinePoint Lancets - 07/19/2020 12:00:00 AM EST eCW1 ([facility]) OneTouch Ultra II Test Strips 07/19/2020 12:00:00 AM EST eCW1 ([facility]) OneTouch FinePoint Lancets - 07/19/2020 12:00:00 AM EST eCW1 ([facility]) OneTouch Ultra 2 w/Device 07/19/2020 12:00:00 AM EST eCW1 ([facility]) OneTouch Ultra II Test Strips 07/19/2020 12:00:00 AM EST eCW1 ([facility]) OneTouch FinePoint Lancets - 07/19/2020 12:00:00 AM EST eCW1 ([facility]) OneTouch Ultra 2 w/Device 07/19/2020 12:00:00 AM EST eCW1 ([facility]) OneTouch Ultra II Test Strips 07/19/2020 12:00:00 AM EST eCW1 ([facility]) OneTouch FinePoint Lancets - 07/19/2020 12:00:00 AM EST eCW1 ([facility]) OneTouch Ultra 2 w/Device 07/19/2020 12:00:00 AM EST eCW1 ([facility]) Plantar Fasciitis Support - 07/14/2020 12:00:00 AM EST eCW1 ([facility]) Metformin hydrochloride 500 MG Oral Tablet 07/14/2020 12:00:[address] eCW1 ([facility]) Plantar Fasciitis Support - 07/14/2020 12:00:00 AM EST eCW1 ([facility]) Metformin hydrochloride 500 MG Oral Tablet 07/14/2020 12:00:[address] eCW1 ([facility]) Plantar Fasciitis Support - 07/14/2020 12:00:00 AM EST eCW1 ([facility]) Metformin hydrochloride 500 MG Oral Tablet 07/14/2020 12:00:[address] eCW1 ([facility]) Plantar Fasciitis Support - 07/14/2020 12:00:00 AM EST eCW1 ([facility]) Metformin hydrochloride 500 MG Oral Tablet 07/14/2020 12:00:[address] eCW1 ([facility]) Plantar Fasciitis Support - 07/14/2020 12:00:00 AM EST eCW1 ([facility]) Metformin hydrochloride 500 MG Oral Tablet 07/14/2020 12:00:[address] eCW1 ([facility]) Plantar Fasciitis Support - 07/14/2020 12:00:00 AM EST eCW1 ([facility]) Metformin hydrochloride 500 MG Oral Tablet 07/14/2020 12:00:[address] eCW1 ([facility]) Ascorbic Acid 500 MG Oral Tablet NextGen ([facility]) Pravastatin Sodium 10 MG Oral Tablet NextGen ([facility]) VITAMIN E (unknown strength) NextGen ([facility])
--- OUTSIDE RECORDS SUMMARY | 2021-04-30 18:26 | CCD | Continuity of Care Document ---
Author Author [facility] Organization [facility] Address Unknown Phone Unavailable Care Team Providers Care Internal Communications Intern Name Role Phone Sharona Bryant Unavailable Unavailable [...] (unknown strength) Not Available - Activ e acyclovir 400 mg tablet 1 po tid x 5d prn outbreak (#15) - No Longer Active Vitamin C 500 mg tablet - No Longe r Active Problems Condition Effective Dates (start - [...] for malignant neoplasm of breast Encntr for first cook exam (general) (routine) w/o abn findings Encntr for first cook exam (general) (routine) w/o abn findings Encntr screen for infections w sexl mode of transmiss High risk heterosexual behavior Encounter for oth screening for malignant neoplasm of breast Dysuria Yeast-vulvovaginal Genital Itching HIV Counseling STI Screening Vaginal Discharge BV Menopause SX Dysuria Nipple Discharge PT, Negative Gonorrhea - Active Herpes simplex - Active Type 2 Hypertensive disorder Active Impaired glucose tolerance Active Menopause present Active no menses 6-7 yrs Factor V Leiden mutation Active Procedures Procedure Date CHYLMD TRACH, Pharyngeal N.GONORRHOEAE, Pharyngeal CHYLMD TRACH, URINE N.GONORRHOEAE, URINE SMEAR, WET MOUNT, SALINE/INK ASSAY OF BODY FLUID ACIDITY OFFICE VISIT, EST CVR Blood Pressure CVR Med.Svc. Height/Weight Results Test Name Date and Time Measure Units Reference Range Abnormal Flag St atus Comments Panel Description: Vaginal pH Final Vaginal pH 15:51:20 pH: 6.0. Final Panel Description: Wet Prep Final Wet Prep 15:51:09 Hyphae/Gladys: no; Budding yeast: no; Trich: no; Clue cells: yes (>=20%); WBCs: yes (few); Amine/Whiff test: positive A Final Advance Directives Directive Yes / No Effective Date File Name No Information Encounters Encounter Description Practice Location Reason(s) For Visit Diagnose s Date Provider Providers Copied on Encounter OFFICE VISIT, EST [facility], [address] [place] [address], [address] [place] [address], tel:[phone] [facility] Vaginal Itching (c hief complaint)Vaginal Discharge (chief complaint) Other sex counselingEncntr screen for infections w sexl mode of transmissEncounter for oth general cnsl and advice on contraceptionAcute vaginitis Lora Tabor. [address] [place] [address], [id number], . tel:[phone] Referring Provider: Sharona Paulino, [address] [place] [address], [id number]. tel:[phone] [facility], [address] [place] [address], [id number], tel:[phone] [facility] Other sex counselin gEncounter for oth general cnsl and advice on contraceptionEncntr screen for infections w sexl mode of transmissHigh risk heterosexual behavior De Alfaro. [address] [place] [address], [id number], [place]. tel:[phone] Referring Provider: Airam Kc, [address] [place] [address], [id number]. tel:[phone] [facility], [address] [place] [address], [id number], [place] tel:[phone] [facility] Herpesviral vulvovaginitis Ju l- Ye Amos. [address] [place], [place], [id number], [place]. tel:[phone] [facility], [address] [place], [place], [id number], [place] tel:[phone] [facility] Gonococcal cervicit is, unspecifiedOther sex counseling De Alfaro. [address] [place], [place], [id number], [place]. tel:[phone] Referring Provider: Airam Kc, [address] [place] [address], [id number]. tel:[phone] [facility], [address] [place] [address], [id number], [place] tel:[phone] [facility] Herpesviral vulvovaginitis Ju n Ankush Dash. [address] [place] [address], [id number], [place]. tel:[phone] [facility], [address] [place] [address], [id number], [place] tel:[phone] PPNVNY Bullock Frequency of mictur itionEncntr screen for infections w sexl mode of transmissEncounter for screening for human immunodeficiency virusHuman immunodeficiency virus [HIV] counselingOther sex counselingAcute vaginitisCandidiasis of vulva and vaginaOther specified noninflammatory disorders of vaginaUlceration of vulva Ankush Dash. [address] [place] [address], [id number], [place]. tel:[phone] Referring Provider: Mary Jane Lechuga, [address] [place] [address], [id number]. tel:[phone] [facility], [address] [place] [address], [id number], [place] tel:[phone] [facility] Body mass index (BM I) 28.0-28.9, adultHuman immunodeficiency virus [HIV] counselingEncntr screen for infections w sexl mode of transmissHigh risk heterosexual behaviorEncounter for oth screening for malignant neoplasm of breastEncntr for first cook exam (general) (routine) w/o abn findings King Cheryl. [address] [place], [place], [id number]. tel:[phone] Referring Provider: Cheryl Lane, [address] [place], [place], [id number]. tel:[phone] [facility], [address] [place] [address], [id number], [place] tel:[phone] [facility] Body mass index (BM I) 28.0-28.9, adultEncntr for first cook exam (general) (routine) w/o abn findingsEncntr screen for infections w sexl mode of transmissHigh risk heterosexual behaviorEncounter for oth screening for malignant neoplasm of breast Lilly Gutierrez. [address] [place] [address], [id number], [place]. tel:[phone] Referring Provider: Brenda Carr, [address] [place] [address], [id number]. tel:[phone] [facility], [address] [place] [address], [id number], [place] tel:[phone] [facility] DysuriaYeast-vulvov aginalGenital Itching Lilly Gutierrez. [address] [place] [address], [id number], [place]. tel:[phone] [facility], [address] [place] [address], [id number], [place] tel:[phone] PPRAFI Bullock HIV CounselingSTI S creeningVaginal DischargeBVMenopause SXDysuria Gordon Briggs. [address] [place] [address], [id number], [place]. tel:[phone] [facility], [address] [place] [address], [id number], tel:[phone] [facility]PR[facility] No Information Mariella mccartyceci PerezBrenda. [address] [place] [address], [id number], [place]. tel:[phone] [facility], [address] [place] [address], [id number], tel:[phone] PPNVSKYLA Bullock Nipple DischargePT, Negati ve Lilly Brenda. [address] [place], [place], [id number], . tel:[phone] Family History Family Member Diagnosis Age At Onset No Information Immunizations Vaccine Date Status Comments tetanus toxoid, adsorbed administered Note: d ates unknown ; Source: Source Unspecified Payers Payer name Insurance type Covered constitution party ID Authorization(s ) [facility] CI [id number] Social History Type Description Quantity Date Captured Comments Alcohol Use Details Unknown Caffeine Use Details Unknown Tobacco Use Status Current non-smoker Smoking Status Never smoker Non-Smoking Tobacco Use Details : No Details Available : No Details Available Sex Female Vital Signs Date / Time: Height Weight BMI Pulse Rate Blood Pressure Temperatu re Respiratory Rate Body Surface Area Head Circumference BMI percentile Pulse Ox In haled Ox 3:07 PM 64.00 in 152.00 lbs 26.09 kg/meter(2) 118/79 m m[Hg] Chief Complaint And Reason For Visit Most recent encounter only, dated '03/20/2021 15:15'. Vaginal Itching (chief complaint) Vaginal Discharge (chief complaint) Reason For Referral Reason For Referral No Information Plan Of Treatment Date Type Action Status Goal Lifestyle education regarding di et completed Goal Tobacco cessation counseling com pleted Goal Dietary management education, gu idance, and counseling completed Appointment Jaz Gunn RESTRICTIONS, COULD NOT LVM [...] infections w sexl mode of transmiss assessment Encounter for oth general cnsl and advic e on contraception assessment Acute vaginitis Goals Health Concern Goal Type Priority Status Date No Information Medical Equipment Description Device [place] Device Identifier Effective Christopher es (start - stop) Status No Information Mental Status Date Cognitive Assessment No Information Health Concerns Observation Date No Information Concern Status Date No Information Physical Examination Exam Findings Details Neurological Normal Level of consciousne ss - Normal. Orientation - Normal. Genitourinary Normal Urethral meatus - No rmal. Urethra - Normal. External genitalia - Normal. Glands - Normal. Perineum - Normal. Anus - Normal. Cervix - Normal. Genitourinary * Vagina - white cream y discharge w/ odor.
[2021-04-30 18:47] VITALS: O2SAT 96
[2021-04-30] MEDS ORDERED: BENZONATATE 100MG CAPSULE PO ONE (19:05)
[2021-04-30] MEDS ORDERED: ALBUTEROL 90 MCG/ACT 8GM HFA INHALER INH SCH (19:05)
--- OUTSIDE RECORDS SUMMARY | 2021-04-30 19:55 | CCD ---
Author Author [facility] Organization [facility] Address Unknown Phone Unavailable Care Team Providers Care Pastrycook Name Role Phone Karen Tony MD Unavailable [...] Unavailable Karen Tony MD Unavailable Unavailable Karen oTny MD Unavailable Unavailable Karen Tony MD Unavailable [...] Unavailable Unavailable Karen Tony MD Unavailable Unavailable [place], J Sharona PA Unavailable Unavailable [place], J Sharona PA Unavailable Unavailable [place], J Sharona PA Unavailable Unavailable [place], J Sharona PA Unavailable Unavailable [place], J Sharona PA Unavailable Unavailable [place], J Sharona PA Unavailable Unavailable [place], J Sharona PA Unavailable Unavailable [place], J Sharona PA Unavailable Unavailable [place], J Sharona PA Unavailable Unavailable [place], J Sharona PA Unavailable Unavailable [place], J Sharona PA Unavailable Unavailable [place], J Sharona PA Unavailable Unavailable [place], J Sharona PA Unavailable Unavailable [place], J Sharona PA Unavailable Unavailable [place], J Sharona PA Unavailable Unavailable [place], J Sharona PA Unavailable Unavailable [place], J Sharona PA Unavailable Unavailable [place], J Sharona PA Unavailable Unavailable [place], J Sharona PA Unavailable Unavailable [place], J Sharona PA Unavailable Unavailable [place], J Sharona PA Unavailable Unavailable [place], J Sharona PA Unavailable Unavailable Green PRODUCT CONTROL AND LOGISTICS ANALYST PRODUCT CONTROL AND LOGISTICS ANALYST, Mary Jane Unavailable Unavailable Green PRODUCT CONTROL AND LOGISTICS ANALYST PRODUCT CONTROL AND LOGISTICS ANALYST, Mary Jane Unavailable Unavailable Green PRODUCT CONTROL AND LOGISTICS ANALYST PRODUCT CONTROL AND LOGISTICS ANALYST, Mary Jane Unavailable Unavailable Green PRODUCT CONTROL AND LOGISTICS ANALYST PRODUCT CONTROL AND LOGISTICS ANALYST, Mary Jane Unavailable Unavailable Green PRODUCT CONTROL AND LOGISTICS ANALYST PRODUCT CONTROL AND LOGISTICS ANALYST, Mary Jane Unavailable Unavailable Carmen Belcher MD Unavailable Unavailable Carmen Belcher MD Unavailable Unavailable Carmen Belcher MD Unavailable Unavailable Carmen Belcher MD Unavailable Unavailable Carmen Belcher MD Unavailable Unavailable Carmen Belcher MD Unavailable Unavailable Carmen Belcher MD Unavailable Unavailable Camren Belcher MD Unavailable Unavailable Carmen Belcher MD [...] Carmen Amos MD Unavailable Unavailable Ye, Carmen Aoms MD Unavailable Unavailable Ye, Carmen Amos MD [...] is protected by Article 27-F of the [facility] Public Health law. If you continue you may have access to information: Regarding HIV / AIDS; Provided by facilities licensed or operated by the [facility] Office of Mental Health; or Provided by the [facility] Office for People With Developmental Disabilities. If such information is present, then the following [facility] mandated warning applies: This information has [...] law may result in a fine or custodial sentence or both. A general authorization for the release of medical or other information is NOT sufficient authorization for further disc losure. Family History Family Member Name Family Member Gender Family Member Status Date o f Status Description Data Source(s) Unknown Unknown Problem [facility] Unknown Unknown Problem MEDENT ([facility]) Encounters Encounter Providers Location Date Indications Data Source(s ) [place] [address] [facility] [address] 04/23/2021 12:00:00 AM EDT eCW1 ([facility]) [place] [address] [facility] [address] 04/23/2021 12:00:00 AM EDT eCW1 ([facility]) [place] [address] [facility] [address] 04/20/2021 12:00:00 AM EDT eCW1 ([facility]) Attender: Bette Garcia 12/2020 10:47:00 AM EDT - 04/11/2021 10:47:00 AM EDT NextGen ([facility]) Attender: Sharona Garcia 11/2020 03:20:00 PM EDT - 04/10/2021 03:20:00 PM EDT High risk heterosexual behaviorEncntr sc reen for infections w sexl mode of transmissOther sex counseling NextGen ([facility]) High risk heterosexual behavior Encntr screen for infections w sexl mode of transmiss Other sex counseling Unknown [address] [facility] [address] 04/09/2021 12:00:00 AM EDT eCW1 ([facility]) Attender: Bette Garcia 11:42:00 AM EDT - 03/29/2021 11:42:00 AM EDT NextGen ([facility]) Attender: Bette Garcia 09:05:00 AM EDT - 03/28/2021 09:05:00 AM EDT [facility]Gen ([facility]) Attender: Sharona Garcia 03/08 09:57:00 AM EDT - 03/27/2021 09:57:00 AM EDT NextGen ([facility]) OutpatientOFFICE VISIT, EST Attender: Mary Jane Lechuga NP PRODUCT CONTROL AND LOGISTICS ANALYST GYPSY Garcia 03/26/2021 03:00:00 PM EDT - 03/26/2021 03:00:00 PM EDT Other sex counselingHuman immunodeficiency virus [HIV] counselingContact w and exposure to infect w a sexl mode of transmissEncntr screen for infections w sexl mode of transmissGonococcal infection, unspecified NextGen ([facility]) Other sex counseling Human immunodeficiency virus [HIV] couns eling Contact w and exposure to infect w a sex l mode of transmiss Encntr screen for infections w sexl mode of transmiss Gonococcal infection, unspecified Attender: Sharona Garcia 03/07 05:12:00 PM EDT - 03/22/2021 05:12:00 PM EDT NextGen ([facility]) OFFICE VISIT, ESTOutpatient Attender: Sharona BETANCUR [facility] 03/20/2021 03:15:00 PM EDT - 03/20/2021 03:15:00 PM EDT Acute vaginitisEncounter for oth general cnsl and advice on contraceptionEncntr screen for infections w sexl mode of transmissOther sex counseling NextGen ([facility]) Acute vaginitis Encounter for oth general cnsl and advic e on contraception Encntr screen for infections w sexl mode of transmiss Other sex counseling Outpatient [address] [facility] [address] 01/19/2021 12:00:00 AM EDT eCW1 ([facility]) Attender: Airam Garcia 06/2021 05:00:00 PM EDT - 01/15/2021 05:00:00 PM EDT High risk heterosexual behaviorEncntr sc reen for infections w sexl mode of transmissEncounter for oth general cnsl and advice on contraceptionOther sex counseling NextGen ([facility]) High risk heterosexual behavior Encntr screen for infections w sexl mode of transmiss Encounter for oth general cnsl and advic e on contraception Other sex counseling Attender: Bette Garcia 03/2021 03:04:00 PM EDT - 01/12/2021 03:04:00 PM EDT Herpesviral vulvovaginitis NextGen ([facility]) Herpesviral vulvovaginitis Attender: Mary Jane Lechuga NP PRODUCT CONTROL AND LOGISTICS ANALYST PPNCNY Leopold 0 12/28/2020 07:17:00 AM EDT - 12/28/2020 07:17:00 AM EDT [facility] ([facility]) Attender: Mary Jane Lechuga NP PRODUCT CONTROL AND LOGISTICS ANALYST PPNCNY Leopold 0 12/27/2020 03:39:00 PM EDT - 12/27/2020 03:39:00 PM EDT NextGen ([facility]) Attender: Bette Garcia 11:21:00 AM EDT - 12/26/2020 11:21:00 AM EDT NextGen ([facility]) OutpatientOFFICE VISIT, [facility] Attender: Airam jacob 12/25/2020 05:30:00 PM EDT - 12/25/2020 05:30:00 PM EDT Other sex counselingGonococcal cervicitis, unspecified NextGen ([facility]) Other sex counseling Gonococcal cervicitis, unspecified Attender: Bette Garcia 08:40:00 AM EDT - 12/25/2020 08:40:00 AM EDT NextGen ([facility]) Attender: Mary Jane Lechuga NP PRODUCT CONTROL AND LOGISTICS ANALYST PPNCNY Leopold 0 12/23/2020 08:11:00 AM EDT - 12/23/2020 08:11:00 AM EDT NextGen ([facility]) Attender: Mary Jane Lechuga NP PRODUCT CONTROL AND LOGISTICS ANALYST PPNCNY Leopold 0 12/21/2020 07:10:00 AM EDT - 12/21/2020 07:10:00 AM EDT Herpesviral vulvovaginitis NextGen ([facility]) Herpes[facility]ag[facility] Mary Jane Lechuga NP PRODUCT CONTROL AND LOGISTICS ANALYST PPNCNY Leopold 12/20/2020 04:15:00 PM EDT - 12/20/2020 04:15:00 PM EDT Ulceration of vulvaOther specified noninflammatory disorders of vaginaCandidiasis of vulva and vaginaAcute vaginitisOther sex counselingHuman immunodeficiency virus [HIV] counselingEncounter for screening for human immunodeficiency virusEncntr screen for infections w sexl mode of transmissFrequency of micturition NextGen ([facility]) Ulceration of vulva Other specified noninflammatory disorder s of vagina Candidiasis of vulva and vagina Acute vaginitis Other sex counseling Human immunodeficiency virus [HIV] couns eling Encounter for screening for human immuno deficiency virus Encntr screen for infections w sexl mode of transmiss Frequency of micturition Unknown [address] [facility] [address] 11/09/2020 12:00:00 AM EDT eCW1 ([facility]) [place] [address] [facility] [place] [address] 11/02/2020 12:00:00 AM EDT eCW1 ([facility]) [place] [address] [facility] [place] [address] 11/02/2020 12:00:00 AM EDT eCW1 ([facility]) [place] [address] [facility] [place] [address] 10/31/2020 12:00:00 AM EDT eCW1 ([facility]) [place] [address] [facility] [place] [address] 10/03/2020 12:00:00 AM EDT eCW1 ([facility]) [place] [address] [facility] [place] [address] 09/21/2020 12:00:00 AM EDT eCW1 ([facility]) [place] [address] [facility] [place] [address] 09/18/2020 12:00:00 AM EDT eCW1 ([facility]) Unknown [address] [facility] [address] 09/15/2020 12:00:00 AM EST [facility]CW1 [facility] [place] [address] [facility] [place] [address] 09/14/2020 12:00:00 AM EST eCW1 ([facility]) [place] [address] [facility] [address] 09/12/2020 12:00:00 AM EST eCW1 ([facility]) [place] [address] [facility] [address] 08/31/2020 12:00:00 AM EST eCW1 ([facility]) Unknown [address] [facility] [address] 08/31/2020 12:00:00 AM EST eCW1 ([facility]) Omid Tony MD: [address] [place] [phone], Ph. Attender: Omid Tony MD [place] - [facility] Medical 08/03/2020 12:00:00 AM EST MOISE ([facility]) [place] [address] [facility] [address] 07/28/2020 12:00:00 AM EST eCW1 ([facility]) [place] [address] [facility] [address] 07/25/2020 12:00:00 AM EST eCW1 ([facility]) Unknown [address] [facility] [address] 07/25/2020 12:00:00 AM EST eCW1 ([facility]) Unknown [address] [facility] [address] 07/19/2020 12:00:00 AM EST eCW1 ([facility]) Unknown [address] [facility] [address] 07/19/2020 12:00:00 AM EST eCW1 ([facility]) [place]patient [address] [facility] [address] 07/14/2020 12:00:00 AM EST eCW1 ([facility]) Outpatient [address] [facility] [place] [address] 05/05/2020 12:00:00 AM EDT eCW1 ([facility]) Unknown [address] [facility] [address] 05/01/2020 12:00:00 AM EDT eCW1 ([facility]) Out[place] [address] [facility] [address] 04/24/2020 12:00:00 AM EDT eCW1 ([facility]) Unknown [address] [facility] [address] 04/19/2020 12:00:00 AM EDT eCW1 ([facility]) Immunizations Vaccine Date Status Description Data Source(s) influenza, recombinant, quadrIvalent,injectable, prese rvative free 07/14/2020 10:26:00 AM EST completed [facility] influenza, recombinant, quadrIvalent,injectable, prese rvative free 07/14/2020 10:26:00 AM EST completed eCW1 ([facility]) influenza, recombinant, quadrIvalent,injectable, prese rvative free 07/14/2020 10:26:00 AM EST completed eCW1 ([facility]) influenza, recombinant, quadrIvalent,injectable, prese rvative free 07/14/2020 10:26:00 AM EST completed eCW1 ([facility]) influenza, recombinant, quadrIvalent,injectable, prese rvative free 07/14/2020 10:26:00 AM EST completed eCW1 ([facility]) influenza, recombinant, quadrIvalent,injectable, prese rvative free 07/14/2020 10:26:00 AM EST completed eCW1 ([facility]) influenza, recombinant, quadrIvalent,injectable, prese rvative free 07/14/2020 10:26:00 AM EST completed eCW1 ([facility]) influenza, recombinant, quadrIvalent,injectable, prese rvative free 07/14/2020 10:26:00 AM EST completed eCW1 ([facility]) influenza, recombinant, quadrIvalent,injectable, prese rvative free 07/14/2020 10:26:00 AM EST completed eCW1 ([facility]) influenza, recombinant, quadrIvalent,injectable, prese rvative free 07/14/2020 10:26:00 AM EST completed eCW1 ([facility]) influenza, recombinant, quadrIvalent,injectable, prese rvative free 07/14/2020 10:26:00 AM EST completed eCW1 ([facility]) influenza, recombinant, quadrIvalent,injectable, prese rvative free 07/14/2020 10:26:00 AM EST completed eCW1 ([facility]) influenza, recombinant, quadrIvalent,injectable, prese rvative free 07/14/2020 10:26:00 AM EST completed eCW1 ([facility]) influenza, recombinant, quadrIvalent,injectable, prese rvative free 07/14/2020 10:26:00 AM EST completed eCW1 ([facility]) influenza, recombinant, quadrIvalent,injectable, prese rvative free 07/14/2020 10:26:00 AM EST completed eCW1 ([facility]) influenza, recombinant, quadrIvalent,injectable, prese rvative free 07/14/2020 10:26:00 AM EST completed eCW1 ([facility]) influenza, recombinant, quadrIvalent,injectable, prese rvative free 07/14/2020 10:26:00 AM EST completed eCW1 ([facility]) influenza, recombinant, quadrIvalent,injectable, prese rvative free 07/14/2020 10:26:00 AM EST completed eCW1 ([facility]) influenza, recombinant, quadrIvalent,injectable, prese rvative free 07/14/2020 10:26:00 AM EST completed eCW1 ([facility]) influenza, recombinant, quadrIvalent,injectable, prese rvative free 07/14/2020 10:26:00 AM EST completed eCW1 ([facility]) influenza, recombinant, quadrIvalent,injectable, prese rvative free 07/14/2020 10:26:00 AM EST completed eCW1 ([facility]) influenza, recombinant, quadrIvalent,injectable, prese rvative free 07/14/2020 10:26:00 AM EST completed eCW1 ([facility]) influenza, recombinant, quadrIvalent,injectable, prese rvative free 07/14/2020 10:26:00 AM EST completed eCW1 ([facility]) Medications Medication Brand Name Start Date Product Form Dose Route Admi nistrative Instructions Pharmacy Instructions Status Indications Reaction Description Data Source(s) 12 HR Guaifenesin 1200 MG Extended Release Oral Tablet guaiFENesin ER 1200 MG guaiFENesin ER 1200 MG 04/25/2021 12:00:00 AM EDT 1.0 {tablet_as_need ed} active guaiFENesin ER 1200 MG eCW1 ([facility]) Ceftriaxone 500 MG Injection ceftriaxone 500 mg soluti on for injection ceftriaxone 500 mg solution for injection 03/26/2021 12:00:00 AM EDT completed Inject 500 mg total once with 1ml of 1% lidocaine administer to pt in clinic [facility] Clindamycin 300 MG Oral Capsule clindamycin HCl 300 mg capsule clindamycin HCl 300 mg capsule 03/20/2021 12:00:00 AM EDT com pleted 1 tab po bid x 7 days (#14) Next[facility] ([facility]) Acyclovir 400 MG Oral Tablet acyclovir 400 mg tablet acyclov ir 400 mg tablet 01/12/2021 12:00:00 AM EDT completed 1 po tid x 5d prn outbreak (#15) [facility] ([facility]) Ceftriaxone 500 MG Injection ceftriaxone 500 mg soluti on for injection ceftriaxone 500 mg solution for injection 12/25/2020 12:00:00 AM EDT completed Inject 500 mg total once with 1ml of 1% lidocaine administer to pt in clinic [facility] ([facility]) Acyclovir 400 MG Oral Tablet acyclovir 400 mg tablet acyclov ir 400 mg tablet 12/21/2020 12:00:00 AM EDT active 1 tab po tid x 10 days for initial outbreak (#30) [facility] Clindamycin 300 MG Oral Capsule clindamycin HCl 300 mg capsule clindamycin HCl 300 mg capsule 12/20/2020 12:00:00 AM EDT com pleted 1 tab po bid x 7 days (#14) [facility] ([facility]) Fluconazole 150 MG Oral Tablet fluconazole 150 mg tabl et fluconazole 150 mg tablet 12/20/2020 12:00:00 AM EDT completed 1 po x 1, then 1 po in 2-3 days [facility] ([facility]) 500 mg 11/01/2020 12:00:00 AM EDT tablet [...] MG/0.5ML eCW1 ([facility]) 0.5 ML dulaglutide 1.5 MG/ML Auto-Injector [Trulicity] Trulicity 0.75 MG/0.5ML Trulicity 0.75 MG/0.5ML 09/14/2020 12:00:00 AM EST suspended Trulicity 0.75 MG/0.5ML eCW1 ([facility]) 0.5 ML dulaglutide 1.5 MG/ML Auto-Injector [Trulicity] Trulicity 0.75 MG/0.5ML Trulicity 0.75 MG/0.5ML 09/14/2020 12:00:00 AM EST active Trulicity 0.75 MG/0.5ML eCW1 ([facility]) 0.5 ML dulaglutide 1.5 MG/ML Auto-Injector [Trulicity] Trulicity 0.75 MG/0.5ML Trulicity 0.75 MG/0.5ML 09/14/2020 12:00:00 AM EST active Trulicity 0.75 MG/0.5ML eCW1 ([facility]) 0.5 ML dulaglutide 1.5 MG/ML Auto-Injector [Trulicity] Trulicity 0.75 MG/0.5ML Trulicity 0.75 MG/0.5ML 09/14/2020 12:00:00 AM EST suspended Trulicity 0.75 MG/0.5ML eCW1 ([facility]) 0.5 ML dulaglutide 1.5 MG/ML Auto-Injector [Trulicity] Trulicity 0.75 MG/0.5ML Trulicity 0.75 MG/0.5ML 09/14/2020 12:00:00 AM EST suspended Trulicity 0.75 MG/0.5ML eCW1 ([facility]) 0.5 ML dulaglutide 1.5 MG/ML Auto-Injector [Trulicity] Trulicity 0.75 MG/0.5ML Trulicity 0.75 MG/0.5ML 09/14/2020 12:00:00 AM EST active Trulicity 0.75 MG/0.5ML eCW1 ([facility]) 0.5 ML dulaglutide 1.5 MG/ML Auto-Injector [Trulicity] Trulicity 0.75 MG/0.5ML Trulicity 0.75 MG/0.5ML 09/14/2020 12:00:00 AM EST active Trulicity 0.75 MG/0.5ML eCW1 ([facility]) 0.5 ML dulaglutide 1.5 MG/ML Auto-Injector [Trulicity] Trulicity 0.75 MG/0.5ML Trulicity 0.75 MG/0.5ML 09/14/2020 12:00:00 AM EST active Trulicity 0.75 MG/0.5ML eCW1 ([facility]) 0.5 ML dulaglutide 1.5 MG/ML Auto-Injector [Trulicity] Trulicity 0.75 MG/0.5ML Trulicity 0.75 MG/0.5ML 09/14/2020 12:00:00 AM EST suspended Trulicity 0.75 MG/0.5ML eCW1 ([facility]) 0.5 ML dulaglutide 1.5 MG/ML Auto-Injector [Trulicity] Trulicity 0.75 MG/0.5ML Trulicity 0.75 MG/0.5ML 09/14/2020 12:00:00 AM EST active Trulicity 0.75 MG/0.5ML eCW1 ([facility]) 0.5 ML dulaglutide 1.5 MG/ML Auto-Injector [Trulicity] Trulicity 0.75 MG/0.5ML Trulicity 0.75 MG/0.5ML 09/14/2020 12:00:00 AM EST suspended Trulicity 0.75 MG/0.5ML eCW1 ([facility]) Loratadine 10 MG Oral Tablet [Claritin] Claritin 10 MG Yisel tin 10 MG 08/31/2020 12:00:00 AM EST 1.0 {tablet} suspended Claritin 10 MG eCW1 ([facility]) Loratadine 10 MG Oral Tablet [Claritin] Claritin 10 MG Yisel tin 10 MG 08/31/2020 12:00:00 AM EST 1.0 {tablet} suspended Claritin 10 MG eCW1 ([facility]) Loratadine 10 MG Oral Tablet [Claritin] Claritin 10 MG Yisel tin 10 MG 08/31/2020 12:00:00 AM EST 1.0 {tablet} active C laritin 10 MG eCW1 ([facility]) Loratadine 10 MG Oral Tablet [Claritin] Claritin 10 MG Yisel tin 10 MG 08/31/2020 12:00:00 AM EST 1.0 {tablet} suspended Claritin 10 MG eCW1 ([facility]) Loratadine 10 MG Oral Tablet [Claritin] Claritin 10 MG Yisel tin 10 MG 08/31/2020 12:00:00 AM EST 1.0 {tablet} suspended Claritin 10 MG eCW1 ([facility]) Loratadine 10 MG Oral Tablet [Claritin] Claritin 10 MG Yisel tin 10 MG 08/31/2020 12:00:00 AM EST 1.0 {tablet} suspended Claritin 10 MG eCW1 ([facility]) Loratadine 10 MG Oral Tablet [Claritin] Claritin 10 MG Yisel tin 10 MG 08/31/2020 12:00:00 AM EST 1.0 {tablet} suspended Claritin 10 MG eCW1 ([facility]) Loratadine 10 MG Oral Tablet [Claritin] Claritin 10 MG Yisel tin 10 MG 08/31/2020 12:00:00 AM EST 1.0 {tablet} suspended Claritin 10 MG eCW1 ([facility]) Loratadine 10 MG Oral Tablet [Claritin] Claritin 10 MG Yisel tin 10 MG 08/31/2020 12:00:00 AM EST 1.0 {tablet} active C laritin 10 MG eCW1 ([facility]) 10 mg 08/31/2020 12:00:00 AM EST tablet 30 TAKE ONE TABLET BY MOUTH EVERY DAY TAKE ONE TABLET BY MOUTH EVERY DAY SOLD: 09/02/2020 [facility] Loratadine 10 MG Oral Tablet [Claritin] Claritin 10 MG Yisel tin 10 MG 08/31/2020 12:00:00 AM EST 1.0 {tablet} suspended Claritin 10 MG eCW1 ([facility]) Loratadine 10 MG Oral Tablet [Claritin] Claritin 10 MG Yisel tin 10 MG 08/31/2020 12:00:00 AM EST 1.0 {tablet} suspended Claritin 10 MG eCW1 ([facility]) Loratadine 10 MG Oral Tablet [Claritin] Claritin 10 MG Yisel tin 10 MG 08/31/2020 12:00:00 AM EST 1.0 {tablet} suspended Claritin 10 MG eCW1 ([facility]) Loratadine 10 MG Oral Tablet [Claritin] Claritin 10 MG Yisel tin 10 MG 08/31/2020 12:00:00 AM EST 1.0 {tablet} suspended Claritin 10 MG eCW1 ([facility]) Loratadine 10 MG Oral Tablet [Claritin] Claritin 10 MG Yisel tin 10 MG 08/31/2020 12:00:00 AM EST 1.0 {tablet} active C laritin 10 MG eCW1 ([facility]) Isopropyl Alcohol 0.7 ML/ML Medicated Pad Alcohol Prep 70 % Alcohol Prep 70 % 07/20/2020 12:00:00 AM EST active Alcohol Prep 70 % eCW1 ([facility]) Isopropyl Alcohol 0.7 ML/ML Medicated Pad Alcohol Prep 70 % Alcohol Prep 70 % 07/20/2020 12:00:00 AM EST active Alcohol Prep 70 % eCW1 ([facility]) Isopropyl Alcohol 0.7 ML/ML Medicated Pad Alcohol Prep 70 % Alcohol Prep 70 % 07/20/2020 12:00:00 AM EST active Alcohol Prep 70 % eCW1 ([facility]) Isopropyl Alcohol 0.7 ML/ML Medicated Pad Alcohol Prep 70 % Alcohol Prep 70 % 07/20/2020 12:00:00 AM EST active Alcohol Prep 70 % eCW1 ([facility]) Isopropyl Alcohol 0.7 ML/ML Medicated Pad Alcohol Prep 70 % Alcohol Prep 70 % 07/20/2020 12:00:00 AM EST active Alcohol Prep 70 % eCW1 ([facility]) Isopropyl Alcohol 0.7 ML/ML Medicated Pad Alcohol Prep 70 % Alcohol Prep 70 % 07/20/2020 12:00:00 AM EST active Alcohol Prep 70 % eCW1 ([facility]) Isopropyl Alcohol 0.7 ML/ML Medicated Pad Alcohol Prep 70 % Alcohol Prep 70 % 07/20/2020 12:00:00 AM EST active Alcohol Prep 70 % eCW1 ([facility]) Isopropyl Alcohol 0.7 ML/ML Medicated Pad Alcohol Prep 70 % Alcohol Prep 70 % 07/20/2020 12:00:00 AM EST active Alcohol Prep 70 % eCW1 ([facility]) Isopropyl Alcohol 0.7 ML/ML Medicated Pad Alcohol Prep 70 % Alcohol Prep 70 % 07/20/2020 12:00:00 AM EST active Alcohol Prep 70 % eCW1 ([facility]) Isopropyl Alcohol 0.7 ML/ML Medicated Pad Alcohol Prep 70 % Alcohol Prep 70 % 07/20/2020 12:00:00 AM EST active Alcohol Prep 70 % eCW1 ([facility]) Isopropyl Alcohol 0.7 ML/ML Medicated Pad Alcohol Prep 70 % Alcohol Prep 70 % 07/20/2020 12:00:00 AM EST active Alcohol Prep 70 % eCW1 ([facility]) Isopropyl Alcohol 0.7 ML/ML Medicated Pad Alcohol Prep 70 % Alcohol Prep 70 % 07/20/2020 12:00:00 AM EST active Alcohol Prep 70 % eCW1 ([facility]) Isopropyl Alcohol 0.7 ML/ML Medicated Pad Alcohol Prep 70 % Alcohol Prep 70 % 07/20/2020 12:00:00 AM EST active Alcohol Prep 70 % eCW1 ([facility]) Isopropyl Alcohol 0.7 ML/ML Medicated Pad Alcohol Prep 70 % Alcohol Prep 70 % 07/20/2020 12:00:00 AM EST active Alcohol Prep 70 % eCW1 ([facility]) Isopropyl Alcohol 0.7 ML/ML Medicated Pad Alcohol Prep 70 % Alcohol Prep 70 % 07/20/2020 12:00:00 AM EST active Alcohol Prep 70 % eCW1 ([facility]) Isopropyl Alcohol 0.7 ML/ML Medicated Pad Alcohol Prep 70 % Alcohol Prep 70 % 07/20/2020 12:00:00 AM EST active Alcohol Prep 70 % eCW1 ([facility]) Isopropyl Alcohol 0.7 ML/ML Medicated Pad Alcohol Prep 70 % Alcohol Prep 70 % 07/20/2020 12:00:00 AM EST active Alcohol Prep 70 % eCW1 ([facility]) Isopropyl Alcohol 0.7 ML/ML Medicated Pad Alcohol Prep 70 % Alcohol Prep 70 % 07/20/2020 12:00:00 AM EST active Alcohol Prep 70 % eCW1 ([facility]) Isopropyl Alcohol 0.7 ML/ML Medicated Pad Alcohol Prep 70 % Alcohol Prep 70 % 07/20/2020 12:00:00 AM EST active Alcohol Prep 70 % eCW1 ([facility]) Isopropyl Alcohol 0.7 ML/ML Medicated Pad Alcohol Prep 70 % Alcohol Prep 70 % 07/20/2020 12:00:00 AM EST active Alcohol Prep 70 % eCW1 ([facility]) OneTouch FinePoint Lancets - OneTouch FinePoint Lancets - 12:00:00 AM EST active OneTouch FinePoin t Lancets - eCW1 ([facility]) OneTouch Ultra II Test Strips UNK 07/19/2020 12:00:00 AM EST active OneTouch Ultra II Test Strips eCW1 ([facility]) OneTouch Ultra 2 w/Device OneTouch Ultra 2 w/Device 07/19/2020 1 2:00:00 AM EST active OneTouch Ultra 2 w/Device eCW1 ([facility]) OneTouch Ultra 2 w/Device OneTouch Ultra 2 w/Device 07/19/2020 1 2:00:00 AM EST active OneTouch Ultra 2 w/Device eCW1 ([facility]) OneTouch Ultra 2 w/Device OneTouch Ultra 2 w/Device 07/19/2020 1 2:00:00 AM EST active OneTouch Ultra 2 w/Device eCW1 ([facility]) OneTouch Ultra II Test Strips UNK 07/19/2020 12:00:00 AM EST active OneTouch Ultra II Test Strips eCW1 ([facility]) OneTouch Ultra II Test Strips UNK 07/19/2020 12:00:00 AM EST active OneTouch Ultra II Test Strips eCW1 ([facility]) OneTouch Ultra 2 w/Device OneTouch Ultra 2 w/Device 07/19/2020 1 2:00:00 AM EST active OneTouch Ultra 2 w/Device eCW1 ([facility]) OneTouch Ultra 2 w/Device OneTouch Ultra 2 w/Device 07/19/2020 1 2:00:00 AM EST active OneTouch Ultra 2 w/Device eCW1 ([facility]) OneTouch FinePoint Lancets - OneTouch FinePoint Lancets - 12:00:00 AM EST active OneTouch FinePoin t Lancets - eCW1 ([facility]) OneTouch FinePoint Lancets - OneTouch FinePoint Lancets - 12:00:00 AM EST active OneTouch FinePoin t Lancets - eCW1 ([facility]) OneTouch FinePoint Lancets - OneTouch FinePoint Lancets - 12:00:00 AM EST active OneTouch FinePoin t Lancets - eCW1 ([facility]) OneTouch FinePoint Lancets - OneTouch FinePoint Lancets - 12:00:00 AM EST active OneTouch FinePoin t Lancets - eCW1 ([facility]) OneTouch Ultra II Test Strips UNK 07/19/2020 12:00:00 AM EST active OneTouch Ultra II Test Strips eCW1 ([facility]) OneTouch FinePoint Lancets - OneTouch FinePoint Lancets - 12:00:00 AM EST active OneTouch FinePoin t Lancets - eCW1 ([facility]) OneTouch Ultra 2 w/Device OneTouch Ultra 2 w/Device 07/19/2020 1 2:00:00 AM EST active OneTouch Ultra 2 w/Device eCW1 ([facility]) OneTouch FinePoint Lancets - OneTouch FinePoint Lancets - 12:00:00 AM EST active OneTouch FinePoin t Lancets - eCW1 ([facility]) OneTouch FinePoint Lancets - OneTouch FinePoint Lancets - 12:00:00 AM EST active OneTouch FinePoin t Lancets - eCW1 ([facility]) OneTouch FinePoint Lancets - OneTouch FinePoint Lancets - 12:00:00 AM EST active OneTouch FinePoin t Lancets - eCW1 ([facility]) OneTouch Ultra II Test Strips UNK 07/19/2020 12:00:00 AM EST active OneTouch Ultra II Test Strips eCW1 ([facility]) OneTouch Ultra 2 w/Device OneTouch Ultra 2 w/Device 07/19/2020 1 2:00:00 AM EST active OneTouch Ultra 2 w/Device eCW1 ([facility]) OneTouch FinePoint Lancets - OneTouch FinePoint Lancets - 12:00:00 AM EST active OneTouch FinePoin t Lancets - eCW1 ([facility]) OneTouch Ultra 2 w/Device OneTouch Ultra 2 w/Device 07/19/2020 1 2:00:00 AM EST active OneTouch Ultra 2 w/Device eCW1 ([facility]) OneTouch Ultra II Test Strips UNK 07/19/2020 12:00:00 AM EST active OneTouch Ultra II Test Strips eCW1 ([facility]) OneTouch Ultra 2 w/Device OneTouch Ultra 2 w/Device 07/19/2020 1 2:00:00 AM EST active OneTouch Ultra 2 w/Device eCW1 ([facility]) OneTouch FinePoint Lancets - OneTouch FinePoint Lancets - 12:00:00 AM EST active OneTouch FinePoin t Lancets - eCW1 ([facility]) OneTouch Ultra II Test Strips UNK 07/19/2020 12:00:00 AM EST active OneTouch Ultra II Test Strips eCW1 ([facility]) OneTouch Ultra II Test Strips UNK 07/19/2020 12:00:00 AM EST active OneTouch Ultra II Test Strips eCW1 ([facility]) OneTouch Ultra 2 w/Device OneTouch Ultra 2 w/Device 07/19/2020 1 2:00:00 AM EST active OneTouch Ultra 2 w/Device eCW1 ([facility]) OneTouch Ultra 2 w/Device OneTouch Ultra 2 w/Device 07/19/2020 1 2:00:00 AM EST active OneTouch Ultra 2 w/Device eCW1 ([facility]) OneTouch Ultra 2 w/Device OneTouch Ultra 2 w/Device 07/19/2020 1 2:00:00 AM EST active OneTouch Ultra 2 w/Device eCW1 ([facility]) OneTouch Ultra 2 w/Device OneTouch Ultra 2 w/Device 07/19/2020 1 2:00:00 AM EST active OneTouch Ultra 2 w/Device eCW1 ([facility]) OneTouch Ultra II Test Strips UNK 07/19/2020 12:00:00 AM EST active OneTouch Ultra II Test Strips eCW1 ([facility]) OneTouch Ultra 2 w/Device OneTouch Ultra 2 w/Device 07/19/2020 1 2:00:00 AM EST active OneTouch Ultra 2 w/Device eCW1 ([facility]) OneTouch Ultra 2 w/Device OneTouch Ultra 2 w/Device 07/19/2020 1 2:00:00 AM EST active OneTouch Ultra 2 w/Device eCW1 ([facility]) OneTouch FinePoint Lancets - OneTouch FinePoint Lancets - 12:00:00 AM EST active OneTouch FinePoin t Lancets - eCW1 ([facility]) OneTouch FinePoint Lancets - OneTouch FinePoint Lancets - 12:00:00 AM EST active OneTouch FinePoin t Lancets - eCW1 ([facility]) OneTouch FinePoint Lancets - OneTouch FinePoint Lancets - 12:00:00 AM EST active OneTouch FinePoin t Lancets - eCW1 ([facility]) OneTouch Ultra II Test Strips UNK 07/19/2020 12:00:00 AM EST active OneTouch Ultra II Test Strips eCW1 ([facility]) OneTouch FinePoint Lancets - OneTouch FinePoint Lancets - 12:00:00 AM EST active OneTouch FinePoin t Lancets - eCW1 ([facility]) OneTouch Ultra II Test Strips UNK 07/19/2020 12:00:00 AM EST active OneTouch Ultra II Test Strips eCW1 ([facility]) OneTouch Ultra 2 w/Device OneTouch Ultra 2 w/Device 07/19/2020 1 2:00:00 AM EST active OneTouch Ultra 2 w/Device eCW1 ([facility]) OneTouch FinePoint Lancets - OneTouch FinePoint Lancets - 12:00:00 AM EST active OneTouch FinePoin t Lancets - eCW1 ([facility]) OneTouch Ultra II Test Strips UNK 07/19/2020 12:00:00 AM EST active OneTouch Ultra II Test Strips eCW1 ([facility]) OneTouch Ultra II Test Strips UNK 07/19/2020 12:00:00 AM EST active OneTouch Ultra II Test Strips eCW1 ([facility]) OneTouch Ultra 2 w/Device OneTouch Ultra 2 w/Device 07/19/2020 1 2:00:00 AM EST active OneTouch Ultra 2 w/Device eCW1 ([facility]) OneTouch FinePoint Lancets - OneTouch FinePoint Lancets - 12:00:00 AM EST active OneTouch FinePoin t Lancets - eCW1 ([facility]) OneTouch Ultra II Test Strips UNK 07/19/2020 12:00:00 AM EST active OneTouch Ultra II Test Strips eCW1 ([facility]) OneTouch Ultra 2 w/Device OneTouch Ultra 2 w/Device 07/19/2020 1 2:00:00 AM EST active OneTouch Ultra 2 w/Device eCW1 ([facility]) OneTouch Ultra 2 w/Device OneTouch Ultra 2 w/Device 07/19/2020 1 2:00:00 AM EST active OneTouch Ultra 2 w/Device eCW1 ([facility]) OneTouch Ultra II Test Strips UNK 07/19/2020 12:00:00 AM EST active OneTouch Ultra II Test Strips eCW1 ([facility]) OneTouch Ultra II Test Strips UNK 07/19/2020 12:00:00 AM EST active OneTouch Ultra II Test Strips eCW1 ([facility]) OneTouch FinePoint Lancets - OneTouch FinePoint Lancets - 12:00:00 AM EST active OneTouch FinePoin t Lancets - eCW1 ([facility]) OneTouch Ultra II Test Strips UNK 07/19/2020 12:00:00 AM EST active OneTouch Ultra II Test Strips eCW1 ([facility]) OneTouch Ultra 2 w/Device OneTouch Ultra 2 w/Device 07/19/2020 1 2:00:00 AM EST active OneTouch Ultra 2 w/Device eCW1 ([facility]) OneTouch Ultra II Test Strips UNK 07/19/2020 12:00:00 AM EST active OneTouch Ultra II Test Strips eCW1 ([facility]) OneTouch FinePoint Lancets - OneTouch FinePoint Lancets - 12:00:00 AM EST active OneTouch FinePoin t Lancets - eCW1 ([facility]) OneTouch FinePoint Lancets - OneTouch FinePoint Lancets - 12:00:00 AM EST active OneTouch FinePoin t Lancets - eCW1 ([facility]) OneTouch Ultra II Test Strips UNK 07/19/2020 12:00:00 AM EST active OneTouch Ultra II Test Strips eCW1 ([facility]) OneTouch Ultra II Test Strips UNK 07/19/2020 12:00:00 AM EST active OneTouch Ultra II Test Strips eCW1 ([facility]) Plantar Fasciitis Support - Plantar Fasciitis Support - 02/2021 12:00:00 AM EST active Plantar Fasciitis Support - eCW1 ([facility]) Plantar Fasciitis Support - Plantar Fasciitis Support - 02/2021 12:00:00 AM EST active Plantar Fasciitis Support - eCW1 ([facility]) Plantar Fasciitis Support - Plantar Fasciitis Support - 02/2021 12:00:00 AM EST active Plantar Fasciitis Support - eCW1 ([facility]) Plantar Fasciitis Support - Plantar Fasciitis Support - 02/2021 12:00:00 AM EST active Plantar Fasciitis Support - eCW1 ([facility]) Plantar Fasciitis Support - Plantar Fasciitis Support - 02/2021 12:00:00 AM EST active Plantar Fasciitis Support - eCW1 ([facility]) Plantar Fasciitis Support - Plantar Fasciitis Support - 02/2021 12:00:00 AM EST active Plantar Fasciitis Support - eCW1 ([facility]) Plantar Fasciitis Support - Plantar Fasciitis Support - 02/2021 12:00:00 AM EST active Plantar Fasciitis Support - eCW1 ([facility]) Plantar Fasciitis Support - Plantar Fasciitis Support - 02/2021 12:00:00 AM EST active Plantar Fasciitis Support - eCW1 ([facility]) Plantar Fasciitis Support - Plantar Fasciitis Support - 02/2021 12:00:00 AM EST active Plantar Fasciitis Support - eCW1 ([facility]) Metformin hydrochloride 500 MG Oral Tablet Metformin H Cl 500 MG Metformin HCl 500 MG 07/14/2020 12:00:00 AM EST active Metformin HCl 500 MG eCW1 ([facility]) Plantar Fasciitis Support - Plantar Fasciitis Support - 02/2021 12:00:00 AM EST active Plantar Fasciitis Support - eCW1 ([facility]) Plantar Fasciitis Support - Plantar Fasciitis Support - 02/2021 12:00:00 AM EST active Plantar Fasciitis Support - eCW1 ([facility]) Plantar Fasciitis Support - Plantar Fasciitis Support - 02/2021 12:00:00 AM EST active Plantar Fasciitis Support - eCW1 ([facility]) Metformin hydrochloride 500 MG Oral Tablet Metformin H Cl 500 MG Metformin HCl 500 MG 07/14/2020 12:00:00 AM EST active Metformin HCl 500 MG eCW1 ([facility]) Plantar Fasciitis Support - Plantar Fasciitis Support - 02/2021 12:00:00 AM EST active Plantar Fasciitis Support - eCW1 ([facility]) Metformin hydrochloride 500 MG Oral Tablet Metformin H Cl 500 MG Metformin HCl 500 MG 07/14/2020 12:00:00 AM EST active Metformin HCl 500 MG eCW1 ([facility]) Plantar Fasciitis Support - Plantar Fasciitis Support - 02/2021 12:00:00 AM EST active Plantar Fasciitis Support - eCW1 ([facility]) Plantar Fasciitis Support - Plantar Fasciitis Support - 02/2021 12:00:00 AM EST active Plantar Fasciitis Support - eCW1 ([facility]) Metformin hydrochloride 500 MG Oral Tablet Metformin H Cl 500 MG Metformin HCl 500 MG 07/14/2020 12:00:00 AM EST active Metformin HCl 500 MG eCW1 ([facility]) Plantar Fasciitis Support - Plantar Fasciitis Support - 02/2021 12:00:00 AM EST active Plantar Fasciitis Support - eCW1 ([facility]) Plantar Fasciitis Support - Plantar Fasciitis Support - 02/2021 12:00:00 AM EST active Plantar Fasciitis Support - eCW1 ([facility]) Metformin hydrochloride 500 MG Oral Tablet Metformin H Cl 500 MG Metformin HCl 500 MG 07/14/2020 12:00:00 AM EST active Metformin HCl 500 MG eCW1 ([facility]) Metformin hydrochloride 500 MG Oral Tablet Metformin H Cl 500 MG Metformin HCl 500 MG 07/14/2020 12:00:00 AM EST active Metformin HCl 500 MG eCW1 ([facility]) Metformin hydrochloride 500 MG Oral Tablet Metformin H Cl 500 MG Metformin HCl 500 MG 07/14/2020 12:00:00 AM EST active Metformin HCl 500 MG eCW1 ([facility]) Plantar Fasciitis Support - Plantar Fasciitis Support - 02/2021 12:00:00 AM EST active Plantar Fasciitis Support - eCW1 ([facility]) Plantar Fasciitis Support - Plantar Fasciitis Support - 02/2021 12:00:00 AM EST active Plantar Fasciitis Support - eCW1 ([facility]) Plantar Fasciitis Support - Plantar Fasciitis Support - 02/2021 12:00:00 AM EST active Plantar Fasciitis Support - eCW1 ([facility]) Plantar Fasciitis Support - Plantar Fasciitis Support - 02/2021 12:00:00 AM EST active Plantar Fasciitis Support - eCW1 ([facility]) Plantar Fasciitis Support - Plantar Fasciitis Support - 02/2021 12:00:00 AM EST active Plantar Fasciitis Support - eCW1 ([facility]) Metformin hydrochloride 500 MG Oral Tablet Metformin H Cl 500 MG Metformin HCl 500 MG 07/14/2020 12:00:00 AM EST active Metformin HCl 500 MG eCW1 ([facility]) Plantar Fasciitis Support - Plantar Fasciitis Support - 02/2021 12:00:00 AM EST active Plantar Fasciitis Support - eCW1 ([facility]) pantoprazole 40 MG Delayed Release Oral Tablet PANTOPRAZOLE SODIUM 04/20/2020 12:00:00 AM EDT tablet,delayed release (DR/EC) 30 T RIA ONE TABLET BY MOUTH EVERY DAY TAKE ONE TABLET BY MOUTH EVERY DAY SOLD: 09/06/2020 [facility] atorvastatin 40 MG Oral Tablet ATORVASTATIN CALCIUM 11/01/2019 1 2:00:00 AM EDT tablet 30 TAKE ONE TABLET BY MOUTH EVERY D AY TAKE ONE TABLET BY MOUTH EVERY DAY SOLD: 09/06/2020 [facility] Pravastatin Sodium 10 MG Oral Tablet PRAVASTATIN SODIU M (unknown strength) PRAVASTATIN SODIUM (unknown strength) comple krystal NextGen ([facility]) VITAMIN E (unknown strength) vitamin E comple krystal NextGen ([facility]) Ascorbic Acid 500 MG Oral Tablet Vitamin C 500 mg tabl et Vitamin C 500 mg tablet completed NextGen ([facility] Insurance Providers Payer name Policy type / Coverage type Policy ID Covered republican ID Covered republican's relationship to lopez Policy Lopez Plan Information Medicaid P [id number] S [id number] [facility] P [id number] S [id number] Medicaid S [id number] S [id number] [id number] SP [id number] [facility] [id number] SP [id number] [facility]-Medicaid [id number] ANS-Medicaid [id number] ANSI-Medicaid [id number] ANSI-Medicaid [id number] ANSI-Medicaid [id number] ANSI-Medicaid [id number] ANSI-Medicaid [id number] [facility] [id number] ANSI-Medicaid [id number] ANSI-Medicaid [id number] ANSI-Medicaid [id number] ANSI-Medicaid [id number] ANSI-Medicaid [id number] ANSI-Medicaid [id number] ANSI-Medicaid [id number] ANSI-Medicaid [id number] ANSI-Medicaid [id number] ANSI-Medicaid [id number] ANSI-Medicaid [id number] ANSI-Medicaid [id number] ANSI-Medicaid [id number] ANSI-Medicaid [id number] ANSI-Medicaid [id number] ANSI-Medicaid [id number] ANSI-Medicaid [id number] [facility] ([facility]) [id number] Self [id number] [facility] Maintenance Organization ([facility]) [id number] Self [id number] [facility] [id number] SP [id number] [facility] ([facility]) [id number] Self [id number] [facility] Maintenance Organization ([facility]) [id number] Self [id number] [facility] [id number] SP [id number] [facility] O [id number] S [id number] [facility] ([facility]) [id number] Self [employer] [employer] [facility] [id number] SP [id number] [employer] [facility] [id number] SP [id number] MEDICAID [id number] SP [id number] [employer] [employer] MCDHMO [id number] SP [id number] [employer] M[employer]O [id number] SP [id number] [facility]) O [id number] S [id number] [facility] [id number] SP [id number] Problems, Conditions, and Diagnoses Code Display Name Description Problem Type Effective Dates Data Source(s) 85843560 Gonorrhea Gonorrhea Problem 03/20/2021 12:00:00 AM ED T NextGen ([facility]) [id number] Gonorrhea Gonorrhea Problem 12/20/2020 12:00:00 AM ED T [facility]Gen ([facility]) [id number] Herpes simplex Herpes simplex Problem 12/20/2020 12:00: 00 AM EDT NextGen ([facility]) G56.01 [id number] Carpal tunnel syndrome of right wrist Problem 10/31/2020 12:00:00 AM EDT eCW1 ([facility]) E66.09 [id number] Other obesity due to excess calories Prob ino 09/18/2020 12:00:00 AM EDT eCW1 ([facility]) K21.9 Gastroesophageal reflux disease without esophagitis Gastroesophageal reflux disease without esophagitis Problem 09/14/2020 12:00:00 AM ES T eC1 ([facility]) [id number] Finding of esophagus Finding of Esophagus Problem 04/20/2020 05:17:57 PM EDT PISGAH ([facility]) [id number] SNOMED CT Concept SNOMED CT Concept Problem 04/20 05:17:57 PM EDT MOISE ([facility]) [id number] Asthma Asthma Problem 04/20/2020 05:17:57 PM ED T P[place]H ([facility]) [id number] Hypertensive disorder Hypertensive Disorder Problem 04/20/2020 05:17:57 PM EDT MOISE ([facility]) [id number] Depressive disorder Depressive Disorder Problem 1 05:17:57 PM EDT PISGAH ([facility]) Surgeries/Procedures Procedure Description Date Indications Data Source(s) CVR Hogshead Packer.Svc. Other 04/10/2021 12:00:00 AM EDT - 2020 12:00:00 AM EDT NextGen ([facility]) Exclude From Giovanna For Title X 04/10/20 12:00:00 AM EDT - 04/10/2021 12:00:00 AM EDT NextGen ([facility]) N.GONORRHOEAE, Pharyngeal 04/10/2021 12: 00:00 AM EDT - 04/10/2021 12:00:00 AM EDT NextGen ([facility]) CHYLMD TRACH, Pharyngeal 04/10/2021 12:0 0:00 AM EDT - 04/10/2021 12:00:00 AM EDT [facility]Gen ([facility]) NURSE ONLY INJ. RN/CEMENT TILE MAKER Only 03/26/2021 1 2:00:00 AM EDT - 03/26/2021 12:00:00 AM EDT NextGen ([facility]) CVR Hogshead Packer.Svc. Preconception 03/26/2021 12 :00:00 AM EDT - 03/26/2021 12:00:00 AM EDT NextGen ([facility]) CVR Hogshead Packer.Svc. STI / H 03/26/2021 12:00:00 AM EDT - 03/26/2021 12:00:00 AM EDT NextGen ([facility]) CVR Hogshead Packer.Svc. Contraceptive 03/26/2021 12 :00:00 AM EDT - 03/26/2021 12:00:00 AM EDT NextGen ([facility]) CVR Med.Svc. Height/Weight 03/26/2021 12 :00:00 AM EDT - 03/26/2021 12:00:00 AM EDT NextGen ([facility]) CVR Blood Pressure 03/26/2021 12:00:00 AM EDT - 2020 12:00:00 AM EDT NextGen ([facility]) CVR Med.Svc. Other 03/26/2021 12:00:00 AM EDT - 2020 12:00:00 AM EDT NextGen ([facility]) HCS Without Test 03/26/2021 12:00:00 AM EDT - 03/26/20 21 12:00:00 AM EDT NextGen ([facility]) Ceftriaxone sodium injection (Rocephin) 03/26/2021 12:00:00 AM EDT - 03/26/2021 12:00:00 AM EDT NextGen ([facility]) OFFICE VISIT, EST 03/26/2021 12:00:00 AM EDT - 021 12:00:00 AM EDT NextGen ([facility]) CVR Med.Svc. Height/Weight 03/20/2021 12 :00:00 AM EDT - 03/20/2021 12:00:00 AM EDT NextGen ([facility]) CVR Blood Pressure 03/20/2021 12:00:00 AM EDT - 2020 12:00:00 AM EDT NextGen ([facility]) OFFICE VISIT, EST 03/20/2021 12:00:00 AM EDT - 03/20/2 021 12:00:00 AM EDT NextGen ([facility]) ASSAY OF BODY FLUID ACIDITY 03/20/2021 1 2:00:00 AM EDT - 03/20/2021 12:00:00 AM EDT NextGen ([facility]) SMEAR, WET MOUNT, SALINE/INK 03/20/2021 12:00:00 AM EDT - 03/20/2021 12:00:00 AM EDT NextGen ([facility]) N.GONORRHOEAE, URINE 03/20/2021 12:00:00 AM EDT - 03/20/2021 12:00:00 AM EDT NextGen ([facility]) CHYLMD TRACH, URINE 03/20/2021 12:00:00 AM EDT - 03/20 12:00:00 AM EDT NextGen ([facility]) N.GONORRHOEAE, Pharyngeal 03/20/2021 12: 00:00 AM EDT - 03/20/2021 12:00:00 AM EDT NextGen ([facility]) CHYLMD TRACH, Pharyngeal 03/20/2021 12:0 0:00 AM EDT - 03/20/2021 12:00:00 AM EDT NextGen ([facility]) CVR Hogshead Packer.Svc. Other 01/15/2021 12:00:00 AM EDT - 2020 12:00:00 AM EDT NextGen ([facility]) CVR Hogshead Packer.Svc. Contraceptive 01/15/2021 12 :00:00 AM EDT - 01/15/2021 12:00:00 AM EDT NextGen ([facility]) CVR Med.Svc. Height/Weight 01/15/2021 12 :00:00 AM EDT - 01/15/2021 12:00:00 AM EDT NextGen ([facility]) CVR Blood Pressure 01/15/2021 12:00:00 AM EDT - 2020 12:00:00 AM EDT NextGen ([facility]) Injection Or Lab Only Visit Est 01/16/20 12:00:00 AM EDT - 01/15/2021 12:00:00 AM EDT NextGen ([facility]) N.GONORRHOEAE, Pharyngeal 01/15/2021 12: 00:00 AM EDT - 01/15/2021 12:00:00 AM EDT NextGen ([facility]) CHYLMD TRACH, Pharyngeal 01/15/2021 12:0 0:00 AM EDT - 01/15/2021 12:00:00 AM EDT NextGen ([facility]) NURSE ONLY INJ. RN/CEMENT TILE MAKER Only 12/25/2020 1 2:00:00 AM EDT - 12/25/2020 12:00:00 AM EDT NextGen ([facility]) Ceftriaxone sodium injection (Rocephin) 12/25/2020 12:00:00 AM EDT - 12/25/2020 12:00:00 AM EDT NextGen ([facility]) CVR Hogshead Packer.Svc. STI / H 12/25/2020 12:00:00 AM EDT - 12/25/2020 12:00:00 AM EDT NextGen ([facility]) CVR Hogshead Packer.Svc. Other 12/25/2020 12:00:00 AM EDT - 2020 12:00:00 AM EDT NextGen ([facility]) CVR Hogshead Packer.Svc. Contraceptive 12/25/2020 12 :00:00 AM EDT - 12/25/2020 12:00:00 AM EDT NextGen ([facility]) CVR Med.Svc. Height/Weight 12/25/2020 12 :00:00 AM EDT - 12/25/2020 12:00:00 AM EDT NextGen ([facility]) CVR Blood Pressure 12/25/2020 12:00:00 AM EDT - 2020 12:00:00 AM EDT NextGen ([facility]) CVR Blood Pressure 12/25/2020 12:00:00 AM EDT - 2020 12:00:00 AM EDT NextGen ([facility]) OFFICE VISIT, EST 12/25/2020 12:00:00 AM EDT - 021 12:00:00 AM EDT NextGen ([facility]) SMEAR, WET MOUNT, SALINE/INK 12/20/2020 12:00:00 AM EDT - 12/20/2020 12:00:00 AM EDT NextGen ([facility]) ASSAY OF BODY FLUID ACIDITY 12/20/2020 1 2:00:00 AM EDT - 12/20/2020 12:00:00 AM EDT NextGen ([facility]) CVR Hogshead Packer.Svc. STI / H 12/20/2020 12:00:00 AM EDT - 12/20/2020 12:00:00 AM EDT NextGen ([facility]) CVR Hogshead Packer.Svc. Other 12/20/2020 12:00:00 AM EDT - 2020 12:00:00 AM EDT NextGen ([facility]) CVR Hogshead Packer.Svc. Contraceptive 12/20/2020 12 :00:00 AM EDT - 12/20/2020 12:00:00 AM EDT NextGen ([facility]) CVR Med.Svc. Height/Weight 12/20/2020 12 :00:00 AM EDT - 12/20/2020 12:00:00 AM EDT NextGen ([facility]) CVR Blood Pressure 12/20/2020 12:00:00 AM EDT - 2020 12:00:00 AM EDT NextGen ([facility]) URINE CULTURE/COLONY COUNT 12/20/2020 12 :00:00 AM EDT - 12/20/2020 12:00:00 AM EDT NextGen ([facility]) N.GONORRHOEAE, Pharyngeal 12/20/2020 12: 00:00 AM EDT - 12/20/2020 12:00:00 AM EDT NextGen ([facility]) CHYLMD TRACH, Pharyngeal 12/20/2020 12:0 0:00 AM EDT - 12/20/2020 12:00:00 AM EDT NextGen ([facility]) HEPATITIS C, RNA, AMP PROBE 12/20/2020 1 2:00:00 AM EDT - 12/20/2020 12:00:00 AM EDT NextGen ([facility]) SYPHILLIS BLOOD SEROLOGY, QUALITATIVE 12:00:00 AM EDT - 12/20/2020 12:00:00 AM EDT NextGen ([facility]) HTLV/HIV SERUM TEST 12/20/2020 12:00:00 AM EDT - 12/20 12:00:00 AM EDT NextGen ([facility]) SHANITA VIRUS ISOLATE, HSV 12/20/2020 12:0 0:00 AM EDT - 12/20/2020 12:00:00 AM EDT NextGen ([facility]) N.GONORRHOEAE, SWAB 12/20/2020 12:00:00 AM EDT - 12/20 12:00:00 AM EDT NextGen ([facility]) CHYLMD TRACH, SWAB 12/20/2020 12:00:00 AM EDT - 2020 12:00:00 AM EDT NextGen ([facility]) OFFICE VISIT, NEW 12/20/2020 12:00:00 AM EDT - 2 021 12:00:00 AM EDT NextGen ([facility]) ROUTINE VENIPUNCTURE 12/20/2020 12:00:00 AM EDT - 12/20/2020 12:00:00 AM EDT NextGen ([facility]) URINALYSIS NONAUTO W/O SCOPE 12/20/2020 12:00:00 AM EDT - 12/20/2020 12:00:00 AM EDT NextGen ([facility]) ECG ROUTINE ECG W/LEAST 12 LDS W/I&R 08/31/2020 12:00: 00 AM EST eCW1 ([facility]) Immunization: Flublok Quadrivalent (18 years & older) 0.5mL IM (Influenza) 07/14/2020 12:00:00 AM EST eCW1 ([facility]) Results ID Date Data Source [id number] 04/20/2021 04:16:00 PM EDT [facility] Name Value Range Interpretation Code Description Data Margret rce(s) Supporting Document(s) SARS COVID ANTIGEN POSITIVE [facility] This lab was ordered by JORY paz nd reported by [facility]. ID Date Data Source NADEEM COVID AG (Point of Care) 04/20/2021 12:00:00 AM EDT eC W1 ([facility]) Name Value Range Interpretation Code Description Data Margret rce(s) Supporting Document(s) POSITIVE NEGATIVE [place] COVID ANTIGEN eCW1 ([facility]) ID Date Data Source [id number] 03/20/2021 03:51:20 PM EDT NextGen ([facility]) Name Value Range Interpretation Code Description Data Margret rce(s) Supporting Document(s) pH: 6.0. Vaginal pH [facility] ([facility]) ID Date Data Source [id number] 03/20/2021 03:51:09 PM EDT NextGen ([facility]) Name Value Range Interpretation Code Description Data Margret rce(s) Supporting Document(s) Hyphae/Gladys: no; Budding yeast: no; Trich: no; Clue cells: yes (>=20%); WBCs: yes (few); Amine/Whiff test: positive Abnormal ( applies to non-numeric results) Wet Prep NextGen ([facility]) ID Date Data Source Basic Metabolic Profile (BMP) 01/19/2021 12:00:00 AM EDT eCW 1 ([facility]) Name Value Range Interpretation Code Description Data Margret rce(s) Supporting Document(s) 82 70-100 GLUCOSE, FASTING eCW1 ([facility]) 17 7-18 BLOOD UREA NITROGEN eCW1 ([facility]) > 60.0 >45 GLOMERULAR FILTRATION RATE eCW 1 ([facility]) 0.99 0.55-1.30 CREATININE FOR GFR eCW1 ([facility]) 28 21-32 CARBON DIOXIDE LEVEL eCW1 ([facility]) 3.8 3.5-5.1 POTASSIUM SERUM eCW1 ([facility]) 110 98-107 CHLORIDE LEVEL eCW1 ([facility]) 142 136-145 SODIUM LEVEL eCW1 ([facility]) 9.2 8.8-10.2 CALCIUM LEVEL eCW1 ([facility]) ID Date Data Source [id number] 01/19/2021 12:00:00 AM EDT eCW1 ([facility]) Name Value Range Interpretation Code Description Data Margret rce(s) Supporting Document(s) Hemoglobin A1c/Hemoglobin.total in Blood 6.0 HEMOGLOBIN A1c eCW1 ([facility]) ID Date Data Source [id number] 12/20/2020 06:35:22 PM EDT NextGen ([facility]) Name Value Range Interpretation Code Description Data Margret rce(s) Supporting Document(s) Hyphae/Gladys: no; Budding yeast: no; Trich: no; Clue cells: yes (>=20%); WBCs: yes (few); Amine/Whiff test: positive; pH: 5.0 A bnormal (applies to non- numeric results) Wet Prep NextGen ([facility]) ID Date Data Source [id number] 12/20/2020 06:35:01 PM EDT NextGen ([facility]) Name Value Range Interpretation Code Description Data Margret rce(s) Supporting Document(s) pH: 5.0. Vaginal pH [facility] ([facility]) ID Date Data Source [id number] 12/20/2020 04:33:26 PM EDT NextGen ([facility]) Name Value Range Interpretation Code Description Data Margret rce(s) Supporting Document(s) Color: yellow; Glucose: nega tive; Blood: trace; pH: 6.0; Protein: 1+; Nitrite: negative; Leukocytes: trace Abnormal (applies to non-numeri c results) Urine Dipstick NextGen ([facility]) ID Date Data Source Comprehensive Metabolic Profile (CMP) 10/31/2020 12:00:00 AM EDT eCW1 ([facility]) Name Value Range Interpretation Code Description Data Margret rce(s) Supporting Document(s) 93 70-100 GLUCOSE, FASTING eCW1 ([facility]) 13 7-18 BLOOD UREA NITROGEN eCW1 ([facility]) 0.74 0.55-1.30 CREATININE FOR GFR eCW1 ([facility]) > 60.0 >45 GLOMERULAR FILTRATION RATE eCW 1 ([facility]) 110 98-107 CHLORIDE LEVEL eCW1 ([facility]) 4.5 3.5-5.1 POTASSIUM SERUM eCW1 ([facility]) 144 136-145 SODIUM LEVEL eCW1 ([facility]) 30 21-32 CARBON DIOXIDE LEVEL eCW1 ([facility]) 14 7-37 AST/SGOT eCW1 ([facility]) 9.8 8.8-10.2 CALCIUM LEVEL eCW1 ([facility]) 0.7 0.2-1.0 BILIRUBIN,TOTAL eCW1 ([facility]) 33 12-78 ALT/SGPT eCW1 ([facility]) 63 45-117 ALKALINE PHOSPHATASE eCW1 ([facility]) 3.8 3.2-5.2 ALBUMIN eCW1 (Critical access hospital) 7.1 6.4-8.2 TOTAL PROTEIN eCW1 ([facility]) 1.2 1.2-2.2 ALBUMIN/GLOBULIN RATIO eCW1 ([facility]) ID Date Data Source [id number] 09/19/2020 12:00:00 AM EDT [facility] Name Value Range Interpretation Code Description Data Margret rce(s) Supporting Document(s) Covid Rapid Testing negative [facility] This lab was ordered by Leopold and re ported by [facility]. ID Date Data Source WW DIGITAL / MADALYN BILATERAL MAMMO SCREENING (Ultraso und if indicated) 09/18/2020 12:00:00 AM EDT eCW1 ([facility]) Name Value Range Interpretation Code Description Data Margret rce(s) Supporting Document(s) WWBC DIGITAL / MADALYN BILAT ERAL MAMMO SCREENING (Ultrasound if indicated) eCW1 ([facility]) ID Date Data Source TROPONIN I 08/31/2020 12:00:00 AM EST eCW1 ([facility]) Name Value Range Interpretation Code Description Data Margret rce(s) Supporting Document(s) < 0.02 < 0.10 eCW1 ([facility]) ID Date Data Source C REACTIVE PROTEIN QUANTITATIV (At [facility]) 08/31/2020 12:00 :00 AM EST eCW1 ([facility]) Name Value Range Interpretation Code Description Data Margret rce(s) Supporting Document(s) 0.36 0.00-0.30 eCW1 ([facility]) ID Date Data Source FREE T4 & TSH PANEL 08/31/2020 12:00:00 AM EST eCW1 ([facility]) Name Value Range Interpretation Code Description Data Margret rce(s) Supporting Document(s) 0.73 0.76-1.46 eCW1 ([facility] hospital) 0.563 0.358-3.740 eCW1 ([facility]) ID Date Data Source ERYTHROCYTE SEDIMENTATION RATE 08/31/2020 12:00:00 AM EST eC W1 ([facility]) Name Value Range Interpretation Code Description Data Margret rce(s) Supporting Document(s) 16 0-30 eCW1 ([facility]) ID Date Data Source CARDIAC INJURY PROFILE 08/31/2020 12:00:00 AM EST eCW1 ([facility]) Name Value Range Interpretation Code Description Data Margret rce(s) Supporting Document(s) 129 26-192 eCW1 ([facility]) 0.78 < OR =4 eCW1 ([facility]) < 1.0 <3.6 eCW1 ([facility]) ID Date Data Source [id number] 08/03/2020 11:23:00 AM EST MOISE ([facility]) Name Value Range Interpretation Code Description Data Margret rce(s) Supporting Document(s) sars-cov-2 negative negative Sars-cov-2 MOISE ([facility]) Procedure Social History Code Duration Value Status Description Data Source(s ) Smoking 04/23/2021 12:00:00 AM EDT Former Smoker completed Former Smoker eCW1 ([facility]) Smoking 04/23/2021 12:00:00 AM EDT Former Smoker completed Former Smoker eCW1 ([facility]) Smoking 04/23/2021 12:00:00 AM EDT Former Smoker completed Former Smoker eCW1 ([facility]) Smoking 04/11/2021 12:00:00 AM EDT Never smoker completed Never s moker NextGen ([facility]) 03/20/2021 12:00:00 AM EDT Current non-smoker completed C urrent non-smoker NextGen ([facility]) Smoking 01/19/2021 12:00:00 AM EDT Former Smoker completed Former Smoker eCW1 ([facility]) Smoking 01/19/2021 12:00:00 AM EDT Former Smoker completed Former Smoker eCW1 ([facility]) Smoking 10/31/2020 12:00:00 AM EDT Former Smoker completed Former Smoker eCW1 ([facility]) Smoking 10/31/2020 12:00:00 AM EDT Former Smoker completed Former Smoker eCW1 ([facility]) Smoking 10/31/2020 12:00:00 AM EDT Former Smoker completed Former Smoker eCW1 ([facility]) Smoking 10/31/2020 12:00:00 AM EDT Former Smoker completed Former Smoker eCW1 ([facility]) Smoking 09/18/2020 12:00:00 AM EDT Former Smoker completed Former Smoker eCW1 ([facility]) Smoking 09/18/2020 12:00:00 AM EDT Former Smoker completed Former Smoker eCW1 ([facility]) Smoking 09/18/2020 12:00:00 AM EDT Former Smoker completed Former Smoker eCW1 ([facility]) Smoking 09/18/2020 12:00:00 AM EDT Former Smoker completed Former Smoker eCW1 ([facility]) Smoking 09/18/2020 12:00:00 AM EDT Former Smoker completed Former Smoker eCW1 ([facility]) Smoking 09/14/2020 12:00:00 AM EST Former Smoker completed Former Smoker eCW1 ([facility]) Smoking 08/31/2020 12:00:00 AM EST Former Smoker completed Former Smoker eCW1 ([facility]) Smoking 08/31/2020 12:00:00 AM EST Former Smoker completed Former Smoker eCW1 ([facility]) Smoking 07/14/2020 12:00:00 AM EST Former Smoker completed Former Smoker eCW1 ([facility]) Smoking 07/14/2020 12:00:00 AM EST Former Smoker completed Former Smoker eCW1 ([facility]) Smoking 07/14/2020 12:00:00 AM EST Former Smoker completed Former Smoker eCW1 ([facility]) Smoking 07/14/2020 12:00:00 AM EST Former Smoker completed Former Smoker eCW1 ([facility]) Smoking 07/14/2020 12:00:00 AM EST Former Smoker completed Former Smoker eCW1 ([facility]) Smoking 07/14/2020 12:00:00 AM EST Former Smoker completed Former Smoker eCW1 ([facility]) Smoking 05/05/2020 12:00:00 AM EDT Former Smoker completed Former Smoker eCW1 ([facility]) Smoking 04/24/2020 12:00:00 AM EDT Former Smoker completed Former Smoker eCW1 ([facility]) Smoking 04/24/2020 12:00:00 AM EDT Former Smoker completed Former Smoker eCW1 ([facility]) Smoking 04/24/2020 12:00:00 AM EDT Former Smoker completed Former Smoker eCW1 ([facility]) Vital Signs ID Date Data Source UNK Name Value Range Interpretation Code Description Data Source(s) Body weight 151.4 [lb_av] 151.4 [lb_av] eCW1 ([facility]) Body weight 68.67 kg 68.67 kg W1 ([facility]) Body height 64 [in_i] 64 [in_i] eCW1 ([facility]) Body mass index (BMI) [Ratio] 25.98 kg/m2 25.98 kg/m2 W1 ([facility]) Heart rate 99 /min 99 /min eCW1 ([facility]) Respiratory rate 18 /min 18 /min eCW1 ([facility]) Body temperature 97.9 [degF] 97.9 [degF] eCW1 ( [facility]) Systolic blood pressure 124 mm[Hg] 124 mm[Hg] e CW1 ([facility]) Diastolic blood pressure 70 mm[Hg] 70 mm[Hg] eCW1 ([facility]) Body height 162.56 cm 162.56 cm [facility] ([facility] Body weight 68.492 kg 68.492 kg Next[facility] ([facility]) Systolic blood pressure 124 mm[Hg] 124 mm[Hg] N extGen ([facility]) Diastolic blood pressure 82 mm[Hg] 82 mm[Hg] NextGen ([facility]) Body mass index (BMI) [Ratio] 25.92 kg/m2 Overweight 25.92 kg/m2 NextGen ([facility]) Body height 162.56 cm 162.56 cm Next[facility] ([facility]) Body weight 68.946 kg 68.946 kg Next[facility] ([facility]) Systolic blood pressure 118 mm[Hg] 118 mm[Hg] N extGen ([facility]) Diastolic blood pressure 79 mm[Hg] 79 mm[Hg] [facility] ([facility]) Body mass index (BMI) [Ratio] 26.09 kg/m2 Overweight 26.09 kg/m2 [facility] ([facility]) Body weight 161 [lb_av] 161 [lb_av] eCW1 ([facility]) Diastolic blood pressure 70 mm[Hg] 70 mm[Hg] eCW1 ([facility]) Body height 64 [in_i] 64 [in_i] eCW1 ([facility]) Body mass index (BMI) [Ratio] 27.63 kg/m2 27.63 kg/m2 W1 ([facility]) Heart rate 99 /min 99 /min W1 ([facility]) Respiratory rate 18 /min 18 /min W1 ([facility]) Body temperature 98.1 [degF] 98.1 [degF] eCW1 ( [facility]) Systolic blood pressure 122 mm[Hg] 122 mm[Hg] e CW1 ([facility]) Body height 162.56 cm 162.56 cm [facility] ([facility] Body weight 72.938 kg 72.938 kg [facility] ([facility]) Systolic blood pressure 120 mm[Hg] 120 mm[Hg] N [facility]Gen ([facility]) Diastolic blood pressure 72 mm[Hg] 72 mm[Hg] [facility] ([facility]) Body mass index (BMI) [Ratio] 27.60 kg/m2 Overweight 27.60 kg/m2 [facility] ([facility]) Systolic blood pressure 120 mm[Hg] 120 mm[Hg] N [facility]Gen ([facility]) Diastolic blood pressure 76 mm[Hg] 76 mm[Hg] [facility] ([facility]) Body mass index (BMI) [Ratio] 27.81 kg/m2 Overweight 27.81 kg/m2 [facility] ([facility]) Body height 162.56 cm 162.56 cm [facility] ([facility] Body weight 73.482 kg 73.482 kg [facility] ([facility]) Body weight 172 [lb_av] 172 [lb_av] eCW1 ([facility]) Body height 64 [in_i] 64 [in_i] eCW1 ([facility]) Body mass index (BMI) [Ratio] 29.52 kg/m2 29.52 kg/m2 W1 ([facility]) Heart rate 91 /min 91 /min eCW1 ([facility]) Respiratory rate 18 /min 18 /min eCW1 ([facility]) Body temperature 97.1 [degF] 97.1 [degF] eCW1 ( [facility]) Systolic blood pressure 118 mm[Hg] 118 mm[Hg] e CW1 ([facility]) Diastolic blood pressure 76 mm[Hg] 76 mm[Hg] eCW1 ([facility]) Body weight 177 [lb_av] 177 [lb_av] eCW1 ([facility]) Body weight 80.29 kg 80.29 kg eCW1 ([facility]) Body height 64 [in_i] 64 [in_i] eCW1 ([facility]) Body mass index (BMI) [Ratio] 30.38 kg/m2 30.38 kg/m2 W1 ([facility]) Systolic blood pressure 120 mm[Hg] 120 mm[Hg] e CW1 ([facility]) Diastolic blood pressure 74 mm[Hg] 74 mm[Hg] eCW1 ([facility]) Body weight 178 [lb_av] 178 [lb_av] eCW1 ([facility]) Body height 64 [in_i] 64 [in_i] eCW1 ([facility]) Body mass index (BMI) [Ratio] 30.55 kg/m2 30.55 kg/m2 eCW1 ([facility]) Heart rate 102 /min 102 /min eCW1 ([facility]) Respiratory rate 18 /min 18 /min eCW1 ([facility]) Body temperature 98.5 [degF] 98.5 [degF] eCW1 ( [facility]) Systolic blood pressure 116 mm[Hg] 116 mm[Hg] e CW1 ([facility]) Diastolic blood pressure 74 mm[Hg] 74 mm[Hg] eCW1 ([facility]) Body weight 177 [lb_av] 177 [lb_av] eCW1 ([facility]) Body height 64 [in_i] 64 [in_i] eCW1 ([facility]) Body mass index (BMI) [Ratio] 30.38 kg/m2 30.38 kg/m2 eCW1 ([facility]) Heart rate 88 /min 88 /min eCW1 ([facility]) Respiratory rate 18 /min 18 /min eCW1 ([facility]) Body temperature 97.4 [degF] 97.4 [degF] eCW1 ( [facility]) Systolic blood pressure 118 mm[Hg] 118 mm[Hg] e CW1 ([facility]) Diastolic blood pressure 80 mm[Hg] 80 mm[Hg] eCW1 ([facility]) Body weight 185 [lb_av] 185 [lb_av] eCW1 ([facility]) Body height 64 [in_i] 64 [in_i] eCW1 ([facility]) Body mass index (BMI) [Ratio] 31.75 kg/m2 31.75 kg/m2 eCW1 ([facility]) Heart rate 80 /min 80 /min eCW1 ([facility]) Respiratory rate 17 /min 17 /min eCW1 ([facility]) Body temperature 97.8 [degF] 97.8 [degF] eCW1 ( [facility]) Systolic blood pressure 112 mm[Hg] 112 mm[Hg] e CW1 ([facility]) Diastolic blood pressure 80 mm[Hg] 80 mm[Hg] eCW1 ([facility]) Body weight 189.2 [lb_av] 189.2 [lb_av] eCW1 ([facility]) Body height 64 [in_i] 64 [in_i] eCW1 ([facility]) Body mass index (BMI) [Ratio] 32.47 kg/m2 32.47 kg/m2 eCW1 ([facility]) Heart rate 96 /min 96 /min eCW1 ([facility]) Respiratory rate 18 /min 18 /min eCW1 ([facility]) Body temperature 97.5 [degF] 97.5 [degF] eCW1 ( [facility]) Systolic blood pressure 126 mm[Hg] 126 mm[Hg] e CW1 ([facility]) Diastolic blood pressure 88 mm[Hg] 88 mm[Hg] eCW1 ([facility]) Body weight 187 [lb_av] 187 [lb_av] eCW1 ([facility]) Body height 64 [in_i] 64 [in_i] eCW1 ([facility]) Body mass index (BMI) [Ratio] 32.09 kg/m2 32.09 kg/m2 eCW1 ([facility]) Systolic blood pressure 124 mm[Hg] 124 mm[Hg] e CW1 ([facility]) Diastolic blood pressure 76 mm[Hg] 76 mm[Hg] eCW1 ([facility]) Patient Treatment Plan of Care Planned Activity Planned Date Details Description Data Source (s) 12 HR Guaifenesin 1200 MG Extended Release Oral Tablet 04/25/2021 12:00:00 AM EDT eCW1 ([facility]) Ceftriaxone 500 MG Injection 03/26/2021 12:00:00 AM EDT [facility] ([facility]) Clindamycin 300 MG Oral Capsule 03/20/2021 12:00:00 AM EDT [facility] ([facility]) Acyclovir 400 MG Oral Tablet 01/12/2021 12:00:00 AM EDT [facility] ([facility]) Ceftriaxone 500 MG Injection 12/25/2020 12:00:00 AM EDT [facility] ([facility]) Acyclovir 400 MG Oral Tablet 12/21/2020 12:00:00 AM EDT [facility] ([facility]) Fluconazole 150 MG Oral Tablet 12/20/2020 12:00:00 AM EDT [facility] ([facility]) Clindamycin 300 MG Oral Capsule 12/20/2020 12:00:00 AM EDT [facility] ([facility]) 0.5 ML dulaglutide 1.5 MG/ML Auto-Injector [Trulicity] 09/14/2020 12:00:00 AM EST eCW1 ([facility] hospital) Loratadine 10 MG Oral Tablet [Claritin] 08/31/2020 12:00:00 AM EST eCW1 ([facility]) Loratadine 10 MG Oral Tablet [Claritin] 08/31/2020 12:00:00 AM EST eCW1 ([facility]) Isopropyl Alcohol 0.7 ML/ML Medicated Pad 07/20/2020 12:00:00 AM ES T eCW1 ([facility]) Isopropyl Alcohol 0.7 ML/ML Medicated Pad 07/20/2020 12:00:00 AM ES T eCW1 ([facility]) Isopropyl Alcohol 0.7 ML/ML Medicated Pad 07/20/2020 12:00:00 AM ES T eCW1 ([facility]) Isopropyl Alcohol 0.7 ML/ML Medicated Pad 07/20/2020 12:00:00 AM ES T eCW1 ([facility]) Isopropyl Alcohol 0.7 ML/ML Medicated Pad 07/20/2020 12:00:00 AM ES T eCW1 ([facility]) Isopropyl Alcohol 0.7 ML/ML Medicated Pad 07/20/2020 12:00:00 AM ES T eCW1 ([facility]) OneTouch Ultra 2 w/Device 07/19/2020 12:00:00 AM EST eCW1 ([facility]) OneTouch Ultra II Test Strips 07/19/2020 12:00:00 AM EST eCW1 ([facility]) OneTouch FinePoint Lancets - 07/19/2020 12:00:00 AM EST eCW1 ([facility]) OneTouch Ultra 2 w/Device 07/19/2020 12:00:00 AM EST eCW1 ([facility]) OneTouch Ultra II Test Strips 07/19/2020 12:00:00 AM EST eCW1 ([facility]) OneTouch Fine[employer] Lancets - 07/19/2020 12:00:00 AM EST eCW1 ([facility]) OneTouch Ultra 2 w/Device 07/19/2020 12:00:00 AM EST eCW1 ([facility]) OneTouch Ultra II Test Strips 07/19/2020 12:00:00 AM EST eCW1 ([facility]) OneTouch Fine[employer] Lancets - 07/19/2020 12:00:00 AM EST eCW1 ([facility]) OneTouch Ultra II Test Strips 07/19/2020 12:00:00 AM EST eCW1 ([facility]) OneTouch FinePoint Lancets - 07/19/2020 12:00:00 AM EST eCW1 ([facility]) OneTouch Ultra 2 w/Device 07/19/2020 12:00:00 AM EST eCW1 ([facility]) OneTouch Ultra II Test Strips 07/19/2020 12:00:00 AM EST eCW1 ([facility]) OneTouch FinePoint Lancets - 07/19/2020 12:00:00 AM EST eCW1 ([facility]) OneTouch Ultra 2 w/Device 07/19/2020 12:00:00 AM EST eCW1 ([facility]) OneTouch Ultra II Test Strips 07/19/2020 12:00:00 AM EST eCW1 ([facility]) OneTouch FinePoint Lancets - 07/19/2020 12:00:00 AM EST eCW1 ([facility]) OneTouch Ultra 2 w/Device 07/19/2020 12:00:00 AM EST eCW1 ([facility]) Plantar Fasciitis Support - 07/14/2020 12:00:00 AM EST eCW1 ([facility]) Metformin hydrochloride 500 MG Oral Tablet 07/14/2020 12:00:[address] eCW1 ([facility]) Plantar Fasciitis Support - 07/14/2020 12:00:00 AM EST eCW1 ([facility]) Metformin hydrochloride 500 MG Oral Tablet 07/14/2020 12:00:[address] eCW1 ([facility]) Plantar Fasciitis Support - 07/14/2020 12:00:00 AM EST eCW1 ([facility]) Metformin hydrochloride 500 MG Oral Tablet 07/14/2020 12:00:[address] eCW1 ([facility]) Plantar Fasciitis Support - 07/14/2020 12:00:00 AM EST eCW1 ([facility]) Metformin hydrochloride 500 MG Oral Tablet 07/14/2020 12:00:[address] eCW1 ([facility]) Plantar Fasciitis Support - 07/14/2020 12:00:00 AM EST eCW1 ([facility]) Metformin hydrochloride 500 MG Oral Tablet 07/14/2020 12:00:[address] eCW1 ([facility]) Plantar Fasciitis Support - 07/14/2020 12:00:00 AM EST eCW1 ([facility]) Metformin hydrochloride 500 MG Oral Tablet 07/14/2020 12:00:[address] eCW1 ([facility]) Ascorbic Acid 500 MG Oral Tablet [facility] ([facility]) Pravastatin Sodium 10 MG Oral Tablet [facility] ([facility]) VITAMIN E (unknown strength) [facility] ([facility])
[2021-04-30 20:35] LABS: VENOUS HCO3 29.8 MEQ/L (23.0-27.0); VENOUS O2 SATURATION 56.5 % (60.0-80.0); VENOUS PARTIAL PRESSURE CO2 60.9 mmHg (38.0-50.0); VENOUS PARTIAL PRESSURE O2 30.9 mmHg (30.0-50.0); VENOUS PH 7.307 UNITS (7.330-7.430); VENOUS STANDARD HCO3 25.2 MEQ/L; VENOUS TOTAL CO2 31.6 MEQ/L (24.0-28.0)
[2021-04-30 21:05] LABS: BASO % 0.5 % (0.0-1.0); EOS # 0.2 10^3/uL (0.0-0.5); EOS % 2.3 % (0.0-3.0); HEMATOCRIT 40.8 % (36.0-47.0); HEMOGLOBIN 12.6 g/dl (12.0-15.5); LYMPH # 2.8 10^3/uL (1.5-5.0); LYMPH % 37.4 % (24.0-44.0); MEAN CORPUSCULAR HEMOGLOBIN 28.6 pg (27.0-33.0); MEAN CORPUSCULAR HGB CONC 30.9 g/dl (32.0-36.5); MEAN CORPUSCULAR VOLUME 92.5 fl (80.0-96.0); MONO # 0.5 10^3/uL (0.0-0.8); MONO % 7.1 % (2.0-8.0); NEUTROPHILS # 3.8 10^3/uL (1.5-8.5); NEUTROPHILS % 52.2 % (36.0-66.0); PLATELET COUNT, AUTOMATED 308 10^3/uL (150-450); RED BLOOD COUNT 4.41 10^6/uL (4.00-5.40); WHITE BLOOD COUNT 7.4 10^3/uL (4.0-10.0)
[2021-04-30] MEDS ORDERED: AZITHROMYCIN 250MG TABLET PO ONE (21:40)
[2021-04-30] MEDS ORDERED: methylPREDNISolone 125MG 2ML VIAL IV ONE (21:40)
[2021-04-30] MEDS ORDERED: AZIT-12 PO (21:47)
[2021-04-30] MEDS ORDERED: PROAAER10 INH (21:47)
[2021-04-30] MEDS ORDERED: TESS100C PO (21:47)
[2021-04-30] MEDS ORDERED: PRED20TA PO (21:47)
[2021-04-30] MEDS ORDERED: FLON1SPR NARES (21:52)
[2021-04-30 22:00] VITALS: BP 121/75
[2021-04-30 22:00] LABS: ERYTHROCYTE SEDIMENTATION RATE 40 mm/hr (0-30)
== END 2021-04-30 22:11 | disposition home or self-care (01) ==
LOC: M ED 18:17
DX: R05.9 Cough, unspecified (principal); Z86.16 Personal history of COVID-19; E11.9 Type 2 diabetes mellitus without complications; I10 Essential (primary) hypertension; E78.5 Hyperlipidemia, unspecified; K21.9 Gastro-esophageal reflux disease without esophagitis; D68.59 Other primary thrombophilia; Z79.899 Other long term (current) drug therapy; Z88.2 Allergy status to sulfonamides; Z88.8 Allergy status to other drugs, medicaments and biological substances; Z88.5 Allergy status to narcotic agent
CPT/HCPCS: 80047; 82803; 85025; 85652; 86140; 94640; 96374; 99284; J2930

== ENCOUNTER → 2021-04-30 | Outpatient (CLI) | payer OTHER ==
[~2021-04-30] MED LIST changes: +AZIT-12 PO; +D31000TA2 PO; +FLON1SPR NARES; +PROAAER10 INH; +TESS100C PO; +TRUL10IN SQ
--- NOTE | 2021-04-30 17:08 | REP ---
INDICATION: S/P COVID INFECTION CONTINUES WITH COUGH, SOB R/O PNEUMONIA COMPARISON: 06/14/2019. TECHNIQUE: PA/Lateral FINDINGS: Lungs: Subtle bilateral peripheral infiltrates are seen in a pattern which would be compatible with COVID pneumonia. Heart: Normal in size. Mediastinum: Mediastinal silhouette unremarkable. Pleural angles: Unremarkable.. Bones and soft tissues: Unremarkable. IMPRESSION: Subtle bilateral peripheral infiltrates are seen in a pattern which would be compatible with COVID pneumonia. <Electronically signed by Anthony Buchanan > 04/30/21 0032
== END ==
LOC: M RAD 16:45
PROVIDERS: ATTEND Physician Assistant Medical
DX: R05.9 Cough, unspecified (principal); Z86.16 Personal history of COVID-19; R91.8 Other nonspecific abnormal finding of lung field

== ENCOUNTER 2021-09-03 16:37 | Emergency (ER) | payer OTHER ==
[~2021-09-03] VITALS: Ht 162.6 cm; Wt 65.9 kg
[~2021-09-03 16:37] MED LIST changes: +AZIT-12 PO; +FLON1SPR NARES; +PROAAER10 INH; +TESS100C PO
[2021-09-03 17:57] LABS: BLOOD UREA NITROGEN 19 MG/DL (7-18); CREATININE FOR GFR 0.92 MG/DL (0.55-1.30); GLOMERULAR FILTRATION RATE > 60.0 (>45)
[2021-09-03] MEDS ORDERED: ISOVUE-370 76% 100ML VIAL As Ordered ONE (18:13)
[2021-09-03] MEDS ORDERED: VALA1TAB5 (19:34)
[2021-09-03 21:15] VITALS: BP 139/77
== END 2021-09-03 21:25 | disposition home or self-care (01) ==
LOC: M ED 16:37
DX: R07.89 Other chest pain (principal); R00.1 Bradycardia, unspecified; D73.4 Cyst of spleen; I10 Essential (primary) hypertension; D68.59 Other primary thrombophilia; F10.10 Alcohol abuse, uncomplicated; Z87.891 Personal history of nicotine dependence; Z79.899 Other long term (current) drug therapy; Z88.2 Allergy status to sulfonamides; Z88.8 Allergy status to other drugs, medicaments and biological substances; Z88.5 Allergy status to narcotic agent; Z88.1 Allergy status to other antibiotic agents
CPT/HCPCS: 71045; 71275; 76705; 82565; 84520; 93005; 99284; Q9967

== ENCOUNTER → 2021-09-06 | Outpatient (CLI) | payer OTHER ==
[~2021-09-06] MED LIST changes: -D31000TA2 PO; +VALA1TAB5; +VITA100093 PO
[2021-09-06 17:58] LABS: BASO % 0.6 % (0.0-1.0); EOS # 0.1 10^3/uL (0.0-0.5); EOS % 1.7 % (0.0-3.0); HEMOGLOBIN 12.3 g/dl (12.0-15.5); LYMPH # 2.2 10^3/uL (1.5-5.0); LYMPH % 30.5 % (24.0-44.0); MEAN CORPUSCULAR HEMOGLOBIN 29.8 pg (27.0-33.0); MEAN CORPUSCULAR HGB CONC 31.5 g/dl (32.0-36.5); MEAN CORPUSCULAR VOLUME 94.4 fl (80.0-96.0); MONO # 0.4 10^3/uL (0.0-0.8); MONO % 5.9 % (2.0-8.0); NEUTROPHILS # 4.3 10^3/uL (1.5-8.5); PLATELET COUNT, AUTOMATED 236 10^3/uL (150-450); RED BLOOD COUNT 4.13 10^6/uL (4.00-5.40); WHITE BLOOD COUNT 7.1 10^3/uL (4.0-10.0)
[2021-09-06 18:39] LABS: ALBUMIN 3.9 GM/DL (3.2-5.2); ALT/SGPT 25 U/L (12-78); BILIRUBIN,TOTAL 0.4 MG/DL (0.2-1.0); BLOOD UREA NITROGEN 19 MG/DL (7-18); CALCIUM LEVEL 9.8 MG/DL (8.8-10.2); CARBON DIOXIDE LEVEL 31 MEQ/L (21-32); CHLORIDE LEVEL 107 MEQ/L (98-107); CHOLESTEROL LEVEL 174 MG/DL (<200); CHOLESTEROL RISK RATIO 2.636 (<5); FERRITIN 154 NG/ML (8-252); GLOMERULAR FILTRATION RATE > 60.0 (>45); GLUCOSE, FASTING 116 MG/DL (70-100); HDL CHOLESTEROL 66 MG/DL (>40); IRON (FE) 49 UG/DL (50-170); LDL CHOLESTEROL 83 MG/DL (<100); MAGNESIUM LEVEL 2.2 MG/DL (1.8-2.4); NON-HDL-C 108 MG/DL; SODIUM LEVEL 142 MEQ/L (136-145); THYROID STIMULATING HORMONE 0.564 uIU/ML (0.358-3.740); TOTAL 25(OH) VITAMIN D 43.5 NG/ML (30.0-100.0); TOTAL PROTEIN 7.2 GM/DL (6.4-8.2); TRIGLYCERIDES LEVEL 125 MG/DL (<150)
[2021-09-06 19:55] LABS: HEMOGLOBIN A1c 5.8 %
== END ==
LOC: M PLALAB 14:33
PROVIDERS: ATTEND Student in an Organized Health Care Education/Training Program
DX: L65.9 Nonscarring hair loss, unspecified (principal)

== ENCOUNTER → 2021-09-07 | Outpatient (CLI) | payer OTHER | LOC: M PLALAB 16:00 | PROVIDERS: ATTEND Family Medicine | DX: R07.89 Other chest pain (principal) ==

== ENCOUNTER 2022-08-01 11:22 | Inpatient (IN) | payer OTHER ==
[~2022-08-01] VITALS: Ht 162.6 cm; Wt 71.5 kg
[~2022-08-01 11:22] MED LIST changes: +ALBU2.5V10 INH; -ALBU83IN INH; +APRE30TA3 PO; -OTEZ1TAB3 PO; -VALA1TAB5; +VALA1TAB5 PO
[2022-08-01 12:09] LABS: BASO % 0.5 % (0.0-1.0); EOS # 0.1 10^3/uL (0.0-0.5); HEMATOCRIT 38.6 % (36.0-47.0); HEMOGLOBIN 12.6 g/dl (12.0-15.5); LYMPH # 1.9 10^3/uL (1.5-5.0); LYMPH % 31.4 % (24.0-44.0); MEAN CORPUSCULAR HEMOGLOBIN 30.1 pg (27.0-33.0); MEAN CORPUSCULAR HGB CONC 32.6 g/dl (32.0-36.5); MEAN CORPUSCULAR VOLUME 92.3 fl (80.0-96.0); MONO # 0.4 10^3/uL (0.0-0.8); MONO % 5.9 % (2.0-8.0); NEUTROPHILS # 3.7 10^3/uL (1.5-8.5); PLATELET COUNT, AUTOMATED 240 10^3/uL (150-450); RED BLOOD COUNT 4.18 10^6/uL (4.00-5.40); WHITE BLOOD COUNT 6.1 10^3/uL (4.0-10.0)
[2022-08-01 12:44] LABS: ALKALINE PHOSPHATASE 66 U/L (46-116); ALT/SGPT 21 U/L (7.0-40); AST/SGOT 18 U/L (<34); BILIRUBIN,TOTAL 0.8 MG/DL (0.3-1.2); BLOOD UREA NITROGEN 19 MG/DL (9-23); CALCIUM LEVEL 9.2 MG/DL (8.3-10.6); CARBON DIOXIDE LEVEL 28 MMOL/L (20-31); CHLORIDE LEVEL 107 MMOL/L (98-107); CREATININE FOR GFR 0.82 MG/DL (0.55-1.30); GLOMERULAR FILTRATION RATE > 60.0 (>45); GLUCOSE, FASTING 140 MG/DL (74-106); POTASSIUM SERUM 3.8 MMOL/L (3.5-5.1); SODIUM LEVEL 140 MMOL/L (136-145); TOTAL PROTEIN 7.2 G/DL (5.7-8.2)
[2022-08-01] MEDS ORDERED: NS 1,000 ML IV ONE (14:30)
[2022-08-01 14:59] LABS: MONO SCRN NEGATIVE (NEGATIVE)
[2022-08-01 15:10] LABS: FREE T4 0.84 NG/DL (0.89-1.76); THYROID STIMULATING HORMONE 0.797 uIU/ML (0.55-4.78)
[2022-08-01 15:29] LABS: RSV AMPLIFICATION NEGATIVE (NEGATIVE)
[2022-08-01] MEDS ORDERED: ASPIRIN 81MG CHEW TABLET PO ONE (16:45)
[2022-08-01 17:02] LABS: APPEARANCE, URINE MANUAL CLEAR (CLEAR); BILIRUBIN, URINE MANUAL NEGATIVE (NEGATIVE); BLOOD URINE MANUAL NEGATIVE (NEGATIVE); COLOR, URINE MANUAL YELLOW (YELLOW); GLUCOSE, URINE (UA) MANUAL NEGATIVE (NEGATIVE); KETONE, URINE MANUAL NEGATIVE (NEGATIVE); LEUKOCYTE ESTERASE, URINE MAN POSITIVE (NEGATIVE); NITRITE, URINE MANUAL NEGATIVE (NEGATIVE); UROBILINOGEN, URINE MANUAL NORMAL (NORMAL)
[2022-08-01 17:03] LABS: PROTEIN, URINE MANUAL NEGATIVE (NEGATIVE)
[2022-08-01 17:16] LABS: BACTERIA, URINE MOD AMOUNT; HYALINE CAST, URINE NONE SEEN /lpf (0-1); SQUAMOUS EPITHELIAL CELL URINE MOD AMOUNT /hpf (SMALL AMT)
[2022-08-01 17:17] LABS: MUCUS, URINE SMALL AMOUNT (NEGATIVE)
[2022-08-01] MEDS ORDERED: ASCO500T PO (18:17)
[2022-08-01] MEDS ORDERED: HOME MED LIST COMPLETE! XX SCH (18:25)
[2022-08-01 18:51] LABS: CHOLESTEROL LEVEL 211 MG/DL (<200); CHOLESTEROL RISK RATIO 2.94 (<5); HDL CHOLESTEROL 71.6 MG/DL (>40); LDL CHOLESTEROL 118.2 MG/DL (<100); NON-HDL-C 139 MG/DL; TRIGLYCERIDES LEVEL 106 MG/DL (<150)
[2022-08-01] MEDS ORDERED: ASCORBIC ACID 500 MG TAB PO SCH (19:00)
[2022-08-01] MEDS ORDERED: valACYclovir HCL 500 MG TAB PO SCH (19:00)
[2022-08-01 19:03] LABS: HEMOGLOBIN A1c 5.6 % (4.0-6.0)
[2022-08-01] MEDS ORDERED: ATORVASTATIN 20 MG TAB PO SCH ×2 (21:00)
[2022-08-02 00:57] VITALS: BP 123/76
[2022-08-02 04:08] VITALS: BP 112/66
[2022-08-02 04:09] VITALS: BP 112/66
[2022-08-02 05:21] LABS: BASO % 0.5 % (0.0-1.0); EOS # 0.1 10^3/uL (0.0-0.5); HEMATOCRIT 37.4 % (36.0-47.0); HEMOGLOBIN 11.9 g/dl (12.0-15.5); LYMPH # 2.2 10^3/uL (1.5-5.0); LYMPH % 38.6 % (24.0-44.0); MEAN CORPUSCULAR HGB CONC 31.8 g/dl (32.0-36.5); MEAN CORPUSCULAR VOLUME 94.2 fl (80.0-96.0); MONO # 0.4 10^3/uL (0.0-0.8); MONO % 6.9 % (2.0-8.0); NEUTROPHILS # 2.9 10^3/uL (1.5-8.5); NEUTROPHILS % 51.6 % (36.0-66.0); PLATELET COUNT, AUTOMATED 242 10^3/uL (150-450); RED BLOOD COUNT 3.97 10^6/uL (4.00-5.40); WHITE BLOOD COUNT 5.6 10^3/uL (4.0-10.0)
[2022-08-02 05:43] LABS: MAGNESIUM LEVEL 1.9 MG/DL (1.8-2.4)
[2022-08-02 05:45] LABS: BLOOD UREA NITROGEN 18 MG/DL (9-23); CALCIUM LEVEL 8.8 MG/DL (8.3-10.6); CARBON DIOXIDE LEVEL 28 MMOL/L (20-31); CHLORIDE LEVEL 106 MMOL/L (98-107); GLOMERULAR FILTRATION RATE > 60.0 (>45); GLUCOSE, FASTING 118 MG/DL (74-106); POTASSIUM SERUM 4.3 MMOL/L (3.5-5.1); SODIUM LEVEL 141 MMOL/L (136-145)
[2022-08-02 08:00] VITALS: BP 123/70
[2022-08-02 08:17] VITALS: BP_SYST 123; BP_SYST 150; BP_SYST 151; BP_DIAS 70; BP_DIAS 80; BP_DIAS 90
[2022-08-02] MEDS ORDERED: ENOXAPARIN 30MG/0.3ML SYRINGE (J1650 PER 10MG) SC SCH (09:00)
[2022-08-02] MEDS ORDERED: FLUTICASONE PROP 0.05% NASAL SPRAY 16 GM (FLONASE) NARES SCH (09:00)
[2022-08-02] MEDS ORDERED: ENOXAPARIN 40MG/0.4ML SYRINGE (J1650 PER 10MG) SC SCH (09:00)
[2022-08-02] MEDS ORDERED: PANTOPRAZOLE 40MG TAB (PROTONIX) PO SCH (09:00)
[2022-08-02] MEDS ORDERED: ASPI81CH33 PO (11:24)
[2022-08-02] MEDS ORDERED: ATORVASTATIN 20 MG TAB PO SCH (21:00)
== END 2022-08-02 14:40 | disposition home health service (06) | DRG 111 ==
LOC: M ED 11:22 → M ED INP 18:05 → M PCU 08-02 00:28
PROVIDERS: ADMIT Internal Medicine; ATTEND Internal Medicine
DX: H81.10 Benign paroxysmal vertigo, unspecified ear (principal); D68.51 Activated protein C resistance; I72.0 Aneurysm of carotid artery; K76.0 Fatty (change of) liver, not elsewhere classified; I10 Essential (primary) hypertension; E78.5 Hyperlipidemia, unspecified; E11.9 Type 2 diabetes mellitus without complications; K21.9 Gastro-esophageal reflux disease without esophagitis; H04.129 Dry eye syndrome of unspecified lacrimal gland; F32.A Depression, unspecified; F41.9 Anxiety disorder, unspecified; Z90.49 Acquired absence of other specified parts of digestive tract; Z90.79 Acquired absence of other genital organ(s); Z87.891 Personal history of nicotine dependence; I95.1 Orthostatic hypotension; B00.9 Herpesviral infection, unspecified; Z79.899 Other long term (current) drug therapy; Z88.1 Allergy status to other antibiotic agents; Z88.2 Allergy status to sulfonamides; Z88.8 Allergy status to other drugs, medicaments and biological substances

== ENCOUNTER 2022-08-26 13:51 | Outpatient (RCR) | payer OTHER ==
[~2022-08-26 13:51] MED LIST changes: +ASCO500T PO; +ASPI81CH33 PO
== END 2022-09-03 ==
LOC: M PT 13:51
PROVIDERS: ATTEND Student in an Organized Health Care Education/Training Program
DX: H81.11 Benign paroxysmal vertigo, right ear (principal)

== ENCOUNTER 2022-09-19 11:30 | Outpatient (RCR) | payer OTHER | END 2022-10-04 | LOC: M PT 11:30 | PROVIDERS: ATTEND Student in an Organized Health Care Education/Training Program | DX: H81.11 Benign paroxysmal vertigo, right ear (principal) ==

== ENCOUNTER → 2022-11-29 | Outpatient (CLI) | payer OTHER ==
[2022-11-29 13:13] LABS: BASO % 0.6 % (0.0-1.0); EOS % 0.9 % (0.0-3.0); HEMATOCRIT 41.1 % (36.0-47.0); LYMPH # 1.2 10^3/uL (1.5-5.0); LYMPH % 24.8 % (24.0-44.0); MEAN CORPUSCULAR HEMOGLOBIN 29.5 pg (27.0-33.0); MEAN CORPUSCULAR HGB CONC 31.6 g/dl (32.0-36.5); MEAN CORPUSCULAR VOLUME 93.4 fl (80.0-96.0); MONO # 0.5 10^3/uL (0.0-0.8); MONO % 9.7 % (2.0-8.0); NEUTROPHILS % 63.8 % (36.0-66.0); PLATELET COUNT, AUTOMATED 181 10^3/uL (150-450); WHITE BLOOD COUNT 4.6 10^3/uL (4.0-10.0)
[2022-11-29 13:15] LABS: ALKALINE PHOSPHATASE 69 U/L (46-116); ALT/SGPT 39 U/L (7.0-40); AST/SGOT 28 U/L (<34); BILIRUBIN,TOTAL 0.7 MG/DL (0.3-1.2); BLOOD UREA NITROGEN 13 MG/DL (9-23); CALCIUM LEVEL 8.7 MG/DL (8.3-10.6); CARBON DIOXIDE LEVEL 28 MMOL/L (20-31); CHLORIDE LEVEL 107 MMOL/L (98-107); CREATININE FOR GFR 0.87 MG/DL (0.55-1.30); GLOMERULAR FILTRATION RATE > 60.0 (>45); GLUCOSE, FASTING 115 MG/DL (74-106); POTASSIUM SERUM 4.2 MMOL/L (3.5-5.1); SODIUM LEVEL 142 MMOL/L (136-145); TOTAL PROTEIN 6.9 G/DL (5.7-8.2)
[2022-11-29 13:22] LABS: CPK CREATINE PHOSPHOKINASE 83 U/L (34-145)
== END ==
LOC: M PLALAB 11:36
PROVIDERS: ATTEND Student in an Organized Health Care Education/Training Program
DX: R50.9 Fever, unspecified (principal); M79.10 Myalgia, unspecified site

== ENCOUNTER → 2022-12-23 | Outpatient (CLI) | payer OTHER ==
[2022-12-23 15:28] LABS: BASO # 0.1 10^3/uL (0.0-0.2); BASO % 0.8 % (0.0-1.0); EOS # 0.1 10^3/uL (0.0-0.5); EOS % 1.5 % (0.0-3.0); HEMATOCRIT 38.5 % (36.0-47.0); HEMOGLOBIN 12.3 g/dl (12.0-15.5); LYMPH # 2.3 10^3/uL (1.5-5.0); LYMPH % 38.3 % (24.0-44.0); MEAN CORPUSCULAR HEMOGLOBIN 29.3 pg (27.0-33.0); MEAN CORPUSCULAR HGB CONC 31.9 g/dl (32.0-36.5); MEAN CORPUSCULAR VOLUME 91.7 fl (80.0-96.0); MONO # 0.4 10^3/uL (0.0-0.8); MONO % 5.9 % (2.0-8.0); NEUTROPHILS # 3.2 10^3/uL (1.5-8.5); NEUTROPHILS % 53.3 % (36.0-66.0); PLATELET COUNT, AUTOMATED 208 10^3/uL (150-450)
[2022-12-23 15:48] LABS: ERYTHROCYTE SEDIMENTATION RATE 19 mm/hr (0-30)
[2022-12-23 15:54] LABS: ALBUMIN 4.1 G/DL (3.2-5.2); ALKALINE PHOSPHATASE 65 U/L (46-116); ALT/SGPT 27 U/L (7.0-40); AST/SGOT 13 U/L (<34); BILIRUBIN,TOTAL 0.9 MG/DL (0.3-1.2); BLOOD UREA NITROGEN 15 MG/DL (9-23); C REACTIVE PROTEIN QUANTITATIV < 0.40 MG/DL (<1.0); CALCIUM LEVEL 9.2 MG/DL (8.3-10.6); CARBON DIOXIDE LEVEL 28 MMOL/L (20-31); CHLORIDE LEVEL 106 MMOL/L (98-107); CREATININE FOR GFR 0.87 MG/DL (0.55-1.30); GLOMERULAR FILTRATION RATE > 60.0 (>45); GLUCOSE, FASTING 113 MG/DL (74-106); POTASSIUM SERUM 3.7 MMOL/L (3.5-5.1); SODIUM LEVEL 142 MMOL/L (136-145); TOTAL PROTEIN 6.8 G/DL (5.7-8.2)
[2022-12-24 22:29] LABS: HEPATITIS B SURFACE ANTIGEN NEGATIVE (NEGATIVE)
[2022-12-24 22:50] LABS: HEPATITIS B CORE ANTIBODY IGM NEGATIVE (NEGATIVE); HEPATITIS C VIRUS ABY INDEX 0.08 INDEX (<0.8)
[2022-12-25 15:08] LABS: TESTOSTERONE FREE (DIRECT) 0.3 pg/mL (0.0-4.2)
== END ==
LOC: M LAB 14:29
PROVIDERS: ATTEND Nurse Practitioner Family
DX: L40.9 Psoriasis, unspecified (principal)

== ENCOUNTER → 2023-01-30 | Outpatient (REF) | payer OTHER | LOC: M SFHCPLAZ 09:48 | PROVIDERS: ATTEND Family Medicine | DX: R00.2 Palpitations (principal); R42 Dizziness and giddiness; Z53.8 Procedure and treatment not carried out for other reasons ==

== ENCOUNTER → 2023-01-30 | Outpatient (CLI) | payer OTHER ==
[2023-01-30 13:05] LABS: HEMATOCRIT 41.4 % (36.0-47.0); HEMOGLOBIN 13.4 g/dl (12.0-15.5); MEAN CORPUSCULAR HEMOGLOBIN 29.8 pg (27.0-33.0); MEAN CORPUSCULAR HGB CONC 32.4 g/dl (32.0-36.5); PLATELET COUNT, AUTOMATED 246 10^3/uL (150-450); WHITE BLOOD COUNT 6.4 10^3/uL (4.0-10.0)
[2023-01-30 13:39] LABS: BLOOD UREA NITROGEN 20 MG/DL (9-23); CALCIUM LEVEL 9.9 MG/DL (8.3-10.6); CARBON DIOXIDE LEVEL 29 MMOL/L (20-31); CHLORIDE LEVEL 104 MMOL/L (98-107); CREATININE FOR GFR 0.78 MG/DL (0.55-1.30); GLOMERULAR FILTRATION RATE > 60.0 (>45); GLUCOSE, FASTING 117 MG/DL (74-106); POTASSIUM SERUM 4.5 MMOL/L (3.5-5.1); SODIUM LEVEL 141 MMOL/L (136-145)
[2023-01-30 13:41] LABS: THYROID STIMULATING HORMONE 0.946 uIU/ML (0.55-4.78)
[2023-01-30 13:42] LABS: FREE T4 0.96 NG/DL (0.89-1.76)
== END ==
LOC: M PLALAB 10:40
PROVIDERS: ATTEND Student in an Organized Health Care Education/Training Program
DX: R00.2 Palpitations (principal); R42 Dizziness and giddiness

== ENCOUNTER 2023-02-07 19:20 | Emergency (ER) | payer OTHER ==
[~2023-02-07] VITALS: Ht 162.6 cm; Wt 76.0 kg
[2023-02-07 19:21] VITALS: TEMP 98.5
[2023-02-07 21:35] LABS: BASO % 0.4 % (0.0-1.0); EOS # 0.1 10^3/uL (0.0-0.5); EOS % 0.9 % (0.0-3.0); HEMATOCRIT 37.9 % (36.0-47.0); HEMOGLOBIN 12.4 g/dl (12.0-15.5); LYMPH # 2.3 10^3/uL (1.5-5.0); MEAN CORPUSCULAR HEMOGLOBIN 29.8 pg (27.0-33.0); MEAN CORPUSCULAR HGB CONC 32.7 g/dl (32.0-36.5); MEAN CORPUSCULAR VOLUME 91.1 fl (80.0-96.0); MONO # 0.6 10^3/uL (0.0-0.8); MONO % 6.6 % (2.0-8.0); NEUTROPHILS # 5.9 10^3/uL (1.5-8.5); NEUTROPHILS % 65.9 % (36.0-66.0); PLATELET COUNT, AUTOMATED 242 10^3/uL (150-450); RED BLOOD COUNT 4.16 10^6/uL (4.00-5.40); WHITE BLOOD COUNT 8.9 10^3/uL (4.0-10.0)
[2023-02-07 21:59] LABS: CK-MB VALUE MASS < 1.0 NG/ML (<3.6)
[2023-02-07 22:46] LABS: BLOOD UREA NITROGEN 18 MG/DL (9-23); CALCIUM LEVEL 9.5 MG/DL (8.3-10.6); CARBON DIOXIDE LEVEL 27 MMOL/L (20-31); CHLORIDE LEVEL 108 MMOL/L (98-107); CPK CREATINE PHOSPHOKINASE 143 U/L (34-145); CREATININE FOR GFR 0.73 MG/DL (0.55-1.30); GLOMERULAR FILTRATION RATE > 60.0 (>45); GLUCOSE, FASTING 97 MG/DL (74-106); MB/CK RELATIVE INDEX 0.69 (< OR =4); POTASSIUM SERUM 4.5 MMOL/L (3.5-5.1); SODIUM LEVEL 143 MMOL/L (136-145)
[2023-02-07 23:15] VITALS: BP 135/77; O2SAT 96
== END 2023-02-08 00:20 | disposition home or self-care (01) ==
LOC: M ED 19:20
DX: R07.89 Other chest pain (principal); R00.2 Palpitations; R41.9 Unspecified symptoms and signs involving cognitive functions and awareness; D68.59 Other primary thrombophilia; I10 Essential (primary) hypertension; K21.9 Gastro-esophageal reflux disease without esophagitis; E78.5 Hyperlipidemia, unspecified; Z79.899 Other long term (current) drug therapy; Z88.2 Allergy status to sulfonamides; Z88.5 Allergy status to narcotic agent; Z88.8 Allergy status to other drugs, medicaments and biological substances

== ENCOUNTER → 2023-06-20 | Outpatient (REF) | payer OTHER | LOC: M LAB REF 16:44 | PROVIDERS: ATTEND Physician Assistant | DX: R30.0 Dysuria (principal) ==

== ENCOUNTER 2023-07-15 16:03 | Emergency (ER) | payer OTHER ==
[~2023-07-15] VITALS: Ht 162.6 cm; Wt 80.8 kg
[2023-07-15] MEDS ORDERED: STEL45IN (16:19)
[2023-07-15] MEDS ORDERED: LISI10TA22 (16:19)
[2023-07-15 17:25] LABS: BASO # 0.1 10^3/uL (0.0-0.2); BASO % 0.6 % (0.0-1.0); EOS # 0.1 10^3/uL (0.0-0.5); EOS % 1.7 % (0.0-3.0); HEMATOCRIT 39.7 % (36.0-47.0); HEMOGLOBIN 12.8 g/dl (12.0-15.5); LYMPH # 2.2 10^3/uL (1.5-5.0); LYMPH % 28.5 % (24.0-44.0); MEAN CORPUSCULAR HEMOGLOBIN 30.4 pg (27.0-33.0); MEAN CORPUSCULAR HGB CONC 32.2 g/dl (32.0-36.5); MEAN CORPUSCULAR VOLUME 94.3 fl (80.0-96.0); MONO # 0.5 10^3/uL (0.0-0.8); MONO % 5.8 % (2.0-8.0); NEUTROPHILS # 4.9 10^3/uL (1.5-8.5); NEUTROPHILS % 63.1 % (36.0-66.0); PLATELET COUNT, AUTOMATED 245 10^3/uL (150-450); RED BLOOD COUNT 4.21 10^6/uL (4.00-5.40); WHITE BLOOD COUNT 7.7 10^3/uL (4.0-10.0)
[2023-07-15 17:45] LABS: BLOOD UREA NITROGEN 16 MG/DL (9-23); CALCIUM LEVEL 9.5 MG/DL (8.3-10.6); CARBON DIOXIDE LEVEL 26 MMOL/L (20-31); CHLORIDE LEVEL 107 MMOL/L (98-107); CREATININE FOR GFR 0.75 MG/DL (0.55-1.30); GLOMERULAR FILTRATION RATE > 60.0 (>45); GLUCOSE, FASTING 91 MG/DL (74-106); POTASSIUM SERUM 4.4 MMOL/L (3.5-5.1); SODIUM LEVEL 140 MMOL/L (136-145)
[2023-07-15 17:50] LABS: RSV AMPLIFICATION NEGATIVE (NEGATIVE)
[2023-07-15 18:18] LABS: INR 1.01
[2023-07-15 18:19] LABS: PARTIAL THROMBOPLASTIN TIME 26.6 SECONDS (24.8-34.2)
[2023-07-15 18:20] LABS: D-DIMER QUANT 1.41 ug/mL (<0.5)
[2023-07-15 18:22] LABS: MAGNESIUM LEVEL 2.1 MG/DL (1.8-2.4)
[2023-07-15 18:26] LABS: FREE T4 0.92 NG/DL (0.89-1.76); THYROID STIMULATING HORMONE 0.926 uIU/ML (0.55-4.78)
[2023-07-15 18:28] LABS: CPK CREATINE PHOSPHOKINASE 146 U/L (34-145); MB/CK RELATIVE INDEX 0.68 (< OR =4)
[2023-07-15] MEDS ORDERED: ISOVUE-370 76% 100ML VIAL As Ordered ONE (18:45)
[2023-07-15 21:29] VITALS: BP 121/77; TEMP 98.2; O2SAT 98
== END 2023-07-15 21:31 | disposition home or self-care (01) ==
LOC: M ED 16:03
DX: R06.02 Shortness of breath (principal); E11.9 Type 2 diabetes mellitus without complications; I10 Essential (primary) hypertension; E78.5 Hyperlipidemia, unspecified; K21.9 Gastro-esophageal reflux disease without esophagitis; F41.9 Anxiety disorder, unspecified; F32.A Depression, unspecified; F10.10 Alcohol abuse, uncomplicated; Z88.2 Allergy status to sulfonamides; Z88.5 Allergy status to narcotic agent; Z88.8 Allergy status to other drugs, medicaments and biological substances; Z79.82 Long term (current) use of aspirin; Z79.811 Long term (current) use of aromatase inhibitors; Z79.02 Long term (current) use of antithrombotics/antiplatelets; Z79.899 Other long term (current) drug therapy
CPT/HCPCS: 36415; 71046; 71275; 80048; 82550; 82553; 83735; 83880; 84439; 84443; 85025; 85379; 85610; 85730; 87631; 93005; 99284; Q9967

== ENCOUNTER → 2023-07-17 | Outpatient (CLI) | payer OTHER ==
[~2023-07-17] MED LIST changes: +LISI10TA22; +STEL45IN
[2023-07-17 14:06] LABS: APPEARANCE, URINE CLOUDY (CLEAR); BACTERIA, URINE AUTO NEGATIVE (NEGATIVE); BILIRUBIN, URINE AUTO NEGATIVE (NEGATIVE); BLOOD, URINE BLOOD NEGATIVE (NEGATIVE); COLOR, URINE YELLOW (YELLOW); GLUCOSE, URINE (UA) AUTO NEGATIVE (NEGATIVE); KETONE, URINE AUTO NEGATIVE (NEGATIVE); LEUKOCYTE ESTERASE, URINE AUTO TRACE (NEGATIVE); MUCUS, URINE SMALL (NEGATIVE); NITRITE, URINE AUTO NEGATIVE (NEGATIVE); PROTEIN, URINE AUTO NEGATIVE (NEGATIVE); RBC, URINE AUTO 0 /HPF (0-3); SPECIFIC GRAVITY URINE AUTO 1.025 (1.002-1.035); SQUAMOUS EPITHELIAL CELL UR AU 3 /HPF (0-6); URIC ACID CRYSTALS LARGE; UROBILINOGEN, URINE AUTO 0.2 mg/dL (0.0-2.0); WBC, URINE AUTO 0 /HPF (0-3)
[2023-07-17 14:35] LABS: CHOLESTEROL RISK RATIO 3.69 (<5); HDL CHOLESTEROL 57.6 MG/DL (>40); NON-HDL-C 155.4 MG/DL
[2023-07-17 14:39] LABS: HEMOGLOBIN A1c 6.1 % (4.0-6.0)
== END ==
LOC: M PLALAB 09:57
PROVIDERS: ATTEND Student in an Organized Health Care Education/Training Program
DX: Z13.1 Encounter for screening for diabetes mellitus (principal); Z13.220 Encounter for screening for lipoid disorders; R35.0 Frequency of micturition

== ENCOUNTER → 2023-07-23 | Outpatient (CLI) | payer OTHER ==
[2023-07-23 11:00] LABS: FREE T4 0.89 NG/DL (0.89-1.76); THYROID STIMULATING HORMONE 0.866 uIU/ML (0.55-4.78)
[2023-07-23 11:03] LABS: FREE T3 3.4 PG/ML (2.3-4.2)
== END ==
LOC: M LAB 09:58
PROVIDERS: ATTEND Physician Assistant
DX: L65.9 Nonscarring hair loss, unspecified (principal)

== ENCOUNTER 2023-08-18 12:05 | Day surgery (SDC) | payer OTHER ==
[~2023-08-18] VITALS: Ht 162.6 cm; Wt 78.1 kg
[~2023-08-18 12:05] MED LIST changes: +ASCO1TAB5 PO; +CLOB-24; +FLUO0.0118; +KP F1200 PO; -LISI10TA22; +LISI10TA22 PO; +SYST1SOL4 OU
[2023-08-18] MEDS: NS 1,000 ML IV ONE (12:56)
[2023-08-18] MEDS ORDERED: propofoL 200 MG/20 ML VIAL As Ordered ONE (13:35)
[2023-08-18] MEDS ORDERED: LABETALOL 100MG/20ML VIAL As Ordered ONE (13:59)
[2023-08-18 14:44] VITALS: BP 147/81; TEMP 97.9; O2SAT 96
== END 2023-08-18 14:50 | disposition home or self-care (01) ==
LOC: M OPP 12:05
PROVIDERS: ATTEND Internal Medicine Gastroenterology
DX: Z12.11 Encounter for screening for malignant neoplasm of colon (principal); Z86.010 Personal history of colon polyps; K57.30 Diverticulosis of large intestine without perforation or abscess without bleeding; K64.4 Residual hemorrhoidal skin tags; K64.8 Other hemorrhoids; K21.00 Gastro-esophageal reflux disease with esophagitis, without bleeding; K22.89 Other specified disease of esophagus; K29.70 Gastritis, unspecified, without bleeding; R13.10 Dysphagia, unspecified; Z87.891 Personal history of nicotine dependence; G47.9 Sleep disorder, unspecified; E11.9 Type 2 diabetes mellitus without complications; Z79.02 Long term (current) use of antithrombotics/antiplatelets; Z79.52 Long term (current) use of systemic steroids; Z79.82 Long term (current) use of aspirin; Z79.899 Other long term (current) drug therapy; Z88.1 Allergy status to other antibiotic agents; Z88.2 Allergy status to sulfonamides; Z88.5 Allergy status to narcotic agent; Z88.8 Allergy status to other drugs, medicaments and biological substances
CPT/HCPCS: 43239; 43249; 45378; 88305; J1920

== ENCOUNTER → 2023-12-19 | Outpatient (REF) | payer OTHER ==
[2023-12-19 20:44] LABS: Trichomonas vaginalis (AMP) NOT DETECTED (NEGATIVE)
[2023-12-19 21:07] LABS: GC DNA AMPLIFICATION NEGATIVE (NEGATIVE)
== END ==
LOC: M LAB REF 16:25
PROVIDERS: ATTEND Physician Assistant
DX: Z11.9 Encounter for screening for infectious and parasitic diseases, unspecified (principal); R35.89 Other polyuria

== ENCOUNTER → 2023-12-23 | Outpatient (REF) | payer OTHER ==
[2023-12-23 18:37] LABS: ALBUMIN 3.8 G/DL (3.2-5.2); ALKALINE PHOSPHATASE 59 U/L (46-116); ALT/SGPT 43 U/L (7.0-40); AST/SGOT 17 U/L (<34); BILIRUBIN,TOTAL 0.4 MG/DL (0.3-1.2); BLOOD UREA NITROGEN 22 MG/DL (9-23); CALCIUM LEVEL 9.6 MG/DL (8.3-10.6); CARBON DIOXIDE LEVEL 30 MMOL/L (20-31); CHLORIDE LEVEL 109 MMOL/L (98-107); CHOLESTEROL LEVEL 162 MG/DL (<200); CHOLESTEROL RISK RATIO 3.11 (<5); CREATININE FOR GFR 0.88 MG/DL (0.55-1.30); GLOMERULAR FILTRATION RATE > 60.0 (>45); GLUCOSE, FASTING 100 MG/DL (74-106); POTASSIUM SERUM 4.6 MMOL/L (3.5-5.1); SODIUM LEVEL 141 MMOL/L (136-145); TOTAL PROTEIN 6.7 G/DL (5.7-8.2); TRIGLYCERIDES LEVEL 105 MG/DL (<150)
[2023-12-23 18:39] LABS: THYROID STIMULATING HORMONE 0.815 uIU/ML (0.55-4.78); TOTAL 25(OH) VITAMIN D 45.9 NG/ML (20.0-100.0)
[2023-12-23 18:57] LABS: HEMOGLOBIN A1c 6.1 % (4.0-6.0)
== END ==
LOC: M LAB REF 16:25
PROVIDERS: ATTEND Physician Assistant
DX: Z11.9 Encounter for screening for infectious and parasitic diseases, unspecified (principal); E66.9 Obesity, unspecified; E55.9 Vitamin D deficiency, unspecified

== ENCOUNTER → 2024-01-22 | Outpatient (CLI) | payer OTHER | LOC: M WHC 16:17 | PROVIDERS: ATTEND Physician Assistant | DX: Z12.31 Encounter for screening mammogram for malignant neoplasm of breast (principal); R92.323 Mammographic fibroglandular density, bilateral breasts ==

== ENCOUNTER → 2024-05-05 | Outpatient (CLI) | payer OTHER ==
[~2024-05-05] MED LIST changes: +ISOVUE-370 76% 100ML VIAL As Ordered ONE
== END ==
LOC: M RAD 08:34
PROVIDERS: ATTEND Physician Assistant
DX: R10.9 Unspecified abdominal pain (principal); K76.0 Fatty (change of) liver, not elsewhere classified; D73.4 Cyst of spleen; K57.30 Diverticulosis of large intestine without perforation or abscess without bleeding; K42.9 Umbilical hernia without obstruction or gangrene
CPT/HCPCS: 74177; Q9967

== ENCOUNTER 2024-08-03 18:50 | Emergency (ER) | payer OTHER ==
[~2024-08-03] VITALS: Ht 162.6 cm; Wt 77.2 kg
[~2024-08-03 18:50] MED LIST changes: -ISOVUE-370 76% 100ML VIAL As Ordered ONE
[2024-08-03 18:54] VITALS: TEMP 98.2
[2024-08-03 19:58] LABS: BASO % 0.6 % (0.0-1.0); EOS # 0.1 10^3/uL (0.0-0.5); EOS % 2.2 % (0.0-3.0); HEMATOCRIT 38.8 % (36.0-47.0); HEMOGLOBIN 12.9 g/dl (12.0-15.5); LYMPH # 2.4 10^3/uL (1.5-5.0); LYMPH % 38.2 % (24.0-44.0); MEAN CORPUSCULAR HEMOGLOBIN 31.3 pg (27.0-33.0); MEAN CORPUSCULAR HGB CONC 33.2 g/dl (32.0-36.5); MEAN CORPUSCULAR VOLUME 94.2 fl (80.0-96.0); MONO # 0.4 10^3/uL (0.0-0.8); MONO % 6.9 % (2.0-8.0); NEUTROPHILS # 3.2 10^3/uL (1.5-8.5); NEUTROPHILS % 51.8 % (36.0-66.0); PLATELET COUNT, AUTOMATED 236 10^3/uL (150-450); RED BLOOD COUNT 4.12 10^6/uL (4.00-5.40); WHITE BLOOD COUNT 6.3 10^3/uL (4.0-10.0)
[2024-08-03] MEDS ORDERED: ISOVUE-370 76% 100ML VIAL As Ordered ONE (20:09)
[2024-08-03 20:40] VITALS: BP 158/88
[2024-08-03 20:41] LABS: CK-MB VALUE MASS 1.3 NG/ML (<3.6); ETHYL ALCOHOL (ETHANOL) 0.005 % (0.000-0.010)
[2024-08-03 20:46] LABS: CPK CREATINE PHOSPHOKINASE 169 U/L (34-145); MB/CK RELATIVE INDEX 0.76 (< OR =4)
[2024-08-03 21:46] VITALS: BP 144/68; O2SAT 95
== END 2024-08-03 22:06 | disposition home or self-care (01) ==
LOC: M ED 18:50
DX: I10 Essential (primary) hypertension (principal); F41.1 Generalized anxiety disorder; Z86.73 Personal history of transient ischemic attack (TIA), and cerebral infarction without residual deficits; E78.5 Hyperlipidemia, unspecified; D68.51 Activated protein C resistance; I72.0 Aneurysm of carotid artery; E04.2 Nontoxic multinodular goiter; Z79.82 Long term (current) use of aspirin; Z79.899 Other long term (current) drug therapy; Z88.2 Allergy status to sulfonamides; Z88.8 Allergy status to other drugs, medicaments and biological substances; Z88.5 Allergy status to narcotic agent
CPT/HCPCS: 70450; 70496; 70498; 71045; 80047; 82077; 82550; 82553; 84484; 85025; 93005; 99284; Q9967

== ENCOUNTER → 2024-08-11 | Outpatient (CLI) | payer OTHER | LOC: M RAD 11:45 | PROVIDERS: ATTEND Physician Assistant | DX: R10.2 Pelvic and perineal pain (principal) ==

== ENCOUNTER 2024-09-29 13:40 | Outpatient (RCR) | payer OTHER ==
[~2024-09-29 13:40] MED LIST changes: -FLUO0.0118; +FLUO0.0131
== END 2024-10-04 ==
LOC: M PT 13:40
PROVIDERS: ATTEND Physician Assistant
DX: R42 Dizziness and giddiness (principal)

== ENCOUNTER → 2024-10-14 | Outpatient (CLI) | payer OTHER | LOC: M CARPUL 09:54 | PROVIDERS: ATTEND Physician Assistant | DX: I10 Essential (primary) hypertension (principal) ==

== ENCOUNTER → 2025-02-07 | Outpatient (CLI) | payer OTHER ==
[~2025-02-07] MED LIST changes: -PROZ20CA11 PO; +PROZ20CA12 PO
== END ==
LOC: M WHC 13:14
PROVIDERS: ATTEND Physician Assistant
DX: Z12.31 Encounter for screening mammogram for malignant neoplasm of breast (principal); R92.323 Mammographic fibroglandular density, bilateral breasts

== ENCOUNTER → 2025-06-07 | Outpatient (CLI) | payer MEDICARE, MEDICAID ==
[~2025-06-07] MED LIST changes: +APPLTAB3 PO; +CENT1TAB7 PO; +EZET10TA57 PO; +FAMO1TAB11 PO; -PROZ20CA12 PO; +PROZ20CA25 PO; +VITA200032 PO
[2025-06-07 17:03] LABS: PLATELET COUNT, AUTOMATED 266 10^3/uL (150-450)
[2025-06-07 17:30] LABS: ALT/SGPT 55 U/L (7.0-40); AST/SGOT 28 U/L (<34); CALCIUM LEVEL 9.3 MG/DL (8.3-10.6); CARBON DIOXIDE LEVEL 30 MMOL/L (20-31); CHLORIDE LEVEL 104 MMOL/L (98-107); CREATININE FOR GFR 1.06 MG/DL (0.55-1.30); GLOMERULAR FILTRATION RATE 58.3 (>45); POTASSIUM SERUM 4.5 MMOL/L (3.5-5.1); SODIUM LEVEL 143 MMOL/L (136-145)
[2025-06-07 17:33] LABS: HEPATITIS B SURFACE ANTIBODY NEGATIVE (POSITIVE)
[2025-06-07 17:57] LABS: HIV 1&2 SCREEN NEGATIVE (NEGATIVE)
[2025-06-07 18:05] LABS: HEPATITIS C VIRUS ABY INDEX < 0.02 INDEX (<0.8)
== END ==
LOC: M LAB 15:36
PROVIDERS: ATTEND Physician Assistant
DX: Z51.81 Encounter for therapeutic drug level monitoring (principal); Z79.899 Other long term (current) drug therapy; Z11.59 Encounter for screening for other viral diseases

== ENCOUNTER → 2025-07-03 | Outpatient (REF) | payer MEDICARE, MEDICAID | LOC: M LAB REF 09:55 | PROVIDERS: ATTEND Physician Assistant | DX: Z79.899 Other long term (current) drug therapy (principal) ==